=== PATIENT | female | born 1940 | race Caucasian/White ===

== ENCOUNTER 2016-06-23 15:06 | Inpatient (IN) | payer MEDICARE, OTHER ==
[~2016-06-23] VITALS: Ht 167.6 cm; Wt 81.6 kg
--- NOTE | 2016-06-23 15:15 | ERA ---
ER Documentation Chief Complaint Date/Time DATE: 06/23/16 TIME: 15:15 Chief Complaint Shortness of breath HPI The patient is a 76-year-old female, presenting to the ER because of acute shortness of breath that began last night that caused her chest tightness. She has similar symptoms previously, complains of intermittent cough. She denies fever, chills, neck pain, chest pain with exertion or vomiting or diaphoresis. She denies abdominal pain, vomiting, dysuria, diarrhea. She does not smoke nor drink Past medical history: Hypertension, atrial fibrillation Past surgical history: None ROS All systems reviewed and are negative except as per history of present illness. Medications Home Meds Reported Medications Nebivolol Hcl* (Bystolic*) 10 Mg Tablet, 10 MG PO DAILY, #30 TAB 06/23/16 Diltiazem Hcl* (Diltiazem XT) 240 Mg Capsule.er, 240 MG PO DAILY, #30 CAP 06/23/16 Losartan-Hydrochlorothiazide (Losartan-HCTZ) 100-25 Mg Tab, 1 TAB PO DAILY, TAB 06/23/16 Warfarin Sodium* (Coumadin*) 2.5 Mg Tablet, 2.5 MG PO DAILY, TAB 06/23/16 Potassium Chloride* (Potassium Chloride*) 8 Meq Capsule.er, 8 MEQ PO DAILY, CAP 06/23/16 Allergies Allergies: Coded Allergies: No Known Allergy (Unverified , 06/23/16) Physical Exam Vitals Vital Signs Date Time Temp Pulse Resp B/P Pulse Ox O2 Delivery O2 Flow Rate FiO2 06/23/16 15:38 98.2 119 24 141/82 97 06/23/16 15:10 Nasal Cannula 2 Physical Exam Const: No acute distress. Head: Atraumatic. Eyes: Normal Conjunctiva. ENT: Normal External Ears, Nose and Mouth. Neck: Full range of motion. No meningismus. Resp: Bibasilar crackles Cardio: Irregularly irregular tachycardic Abd: Soft, non distended, normal bowel sounds, non tender. Skin: No petechiae or rashes. Back: No midline or flank tenderness. Ext: No cyanosis, or edema. Neur: Awake and alert. No focal deficit Psych: Normal Mood and Affect. Result Diagram: 06/23/16 1523 06/23/16 1523 Results 24 hrs Laboratory Tests Test 06/23/16 15:23 06/23/16 16:32 White Blood Count 21.410^3/ul Red Blood Count 5.8010^6/ul Hemoglobin 16.7g/dl Hematocrit 51.5% Mean Corpuscular Volume 88.8fl Mean Corpuscular Hemoglobin 28.8pg Mean Corpuscular Hemoglobin Concent 32.4g/dl Red Cell Distribution Width 17.9% Platelet Count 08952^3/UL Mean Platelet Volume 11.8fl Neutrophils % 77.4% Lymphocytes % 8.1% Monocytes % 7.6% Eosinophils % 1.2% Basophils % 1.4% Nucleated Red Blood Cells % 0.0/100WBC Neutrophils # 16.610^3/ul Lymphocytes # 1.710^3/ul Monocytes # 1.610^3/ul Eosinophils # 0.310^3/ul Basophils # 0.310^3/ul Nucleated Red Blood Cells # 0.010^3/ul Prothrombin Time 22.9Sec Prothrombin Time Ratio 1.8 INR International Normalized Ratio 2.00 Activated Partial Thromboplast Time 38.9Sec Sodium Level 141mmol/L Potassium Level 3.6mmol/L Chloride Level 101mmol/L Carbon Dioxide Level 27mmol/L Anion Gap 17 Blood Urea Nitrogen 18mg/dl Creatinine 1.02mg/dl Glucose Level 158mg/dl Calcium Level 10.7mg/dl Total Bilirubin 2.3mg/dl Direct Bilirubin 0.00mg/dl Indirect Bilirubin 2.3mg/dl Aspartate Amino Transf (AST/SGOT) 25IU/L Alanine Aminotransferase (ALT/SGPT) 13IU/L Alkaline Phosphatase 88IU/L Troponin I < 0.012ng/ml B-Type Natriuretic Peptide 8500PG/ML Total Protein 8.1g/dl Albumin 4.1g/dl Globulin 4.00g/dl Albumin/Globulin Ratio 1.02 Lactic Acid Level 2.2mmol/L Current Medications Medications (Trade) Dose Ordered Sig/Amanda Route PRN Reason Start Time Stop Time Status Last Admin Dose Admin Furosemide 40 mg 40 mg ONCE ONCE IV 06/23/16 16:30 06/23/16 16:31 DC 06/23/16 17:00 Piperacillin Sod/ Tazobactam Sod (Zosyn 3.375gm/ 100 ml (Pmx)) 100 ml @ 200 mls/hr ONCE ONCE IVPB 06/23/16 18:00 06/23/16 18:29 Procedures/MDM [place] [address] Radiology Main Line: [phone] DIAGNOSTIC IMAGING REPORT Patient: FRED KRUEGER : 1940 Age: 76 Sex: F MR #: [id number] DOS: 06/23/16 1516 Ordering MD: LUCY LEON MD Location: E/R Room/Bed: PROCEDURE: XR Chest. CLINICAL INDICATION: Chest pain. TECHNIQUE: Portable AP semi erect view of the chest was obtained. COMPARISON: None available. FINDINGS: The cardiomediastinal silhouette is enlarged. Diffuse prominence of the pulmonary interstitium is most likely interstitial edema. Obscuring of the diaphragm is concerning for small bilateral pleural effusions. There is no evidence of pneumothorax. Demineralization is noted without evidence of acute osseous abnormality. Calcification is visible within the aortic arch. RPTAT:HJJR IMPRESSION: 1. Combination of findings concerning for congestive heart failure. 2. Aortic atherosclerosis is present. Physician Marylu Date Time Electronically viewed and signed by Physician Marylu on 06/23/2016 17:00 JR/ CC: LUCY LEON MD [place] [address] Radiology Main Line: [phone] DIAGNOSTIC IMAGING REPORT Patient: FRED KRUEGER : 1940 Age: 76 Sex: F MR #: [id number] DOS: 06/23/16 0000 Ordering MD: LUCY LEON MD Location: E/R Room/Bed: PROCEDURE: US right upper quadrant CLINICAL INDICATION: Abdominal pain TECHNIQUE: Multiple real-time images were acquired of the patient's right upper abdomen utilizing a high resolution transducer. COMPARISON: None available FINDINGS: Liver: Normal in size, contour and echogenicity. Rounded anechoic structures in the left hepatic lobe and increased through transmission and V2 criteria for a simple cysts the largest measuring 3.1 x 2.8 x 2.7 cm. There is no evidence of solid mass or ductal dilatation. Normal directional blood flow on the patent main portal vein is present. The maximum dimension of the liver estimated at 18.7 cm . Gallbladder: Multiple mobile echogenic foci with distal acoustic shadowing are present. . There is no evidence of gallbladder wall thickening or pericholecystic fluid. No sonographic Baptiste's sign is reported. Common bile duct: Normal; 3 mm. There is no evidence for choledocholithiasis. Right Kidney: Normal; maximum length measured at approximately 11.8 cm. Pancreas: Visualized portions are normal. The tail is partially obscured by bowel gas. RPTAT:HJJR IMPRESSION: 1. Cholelithiasis without evidence of cholecystitis. Normal caliber common bile duct. 2. Incidental left hepatic lobe cysts. Physician Marylu Date Time Electronically viewed and signed by Physician Marylu on 06/23/2016 17:04 JR/ CC: LUCY LEON MD EKG: Read by emergency physician at 3:12 PM Rate/Rhythm: Atrial fibrillation at 128 beats/min QRS, ST, T-waves: No ST elevation, RVR, RWA, IRBBB, inferior, anterior, lateral ST and T abnormality Impression: Abnormal EKG EKG: Read by emergency physician at 3:50 PM Rate/Rhythm: Atrial fibrillation at 123 beats/min QRS, ST, T-waves: No ST elevation, RVR, RWA, IRBBB, inferior, anterior, lateral ST and T abnormality Impression: Abnormal EKG MEDICAL MAKING DECISION: The patient is a 76-year-old female, presenting with acute CHF exacerbation, acute elevated lactic acid level at 2.2, concerning for severe sepsis, acute leukocytosis of unclear etiology. She was treated with Lasix 40 mg IV for acute CHF, IV antibiotic. IV fluid is not given because she is in congestive heart failure The differential diagnoses considered include but are not limited to asthma, COPD, pneumonia, pulmonary embolus, pleural effusion, congestive heart failure. Urinalysis is pending Admit MDM: Patient's infectious symptoms have not stabilized and the patient is at risk of rapid decompensation. The patient will be admitted for careful hydration, antibiotic therapy, and infectious source control. Severe Sepsis criteria: Infectious source: End organ damage indicated by: Lactate > 2.0 mmol/L Sepsis Management: Time of recognition of severe sepsis/septic shock: 17:30 hr Within 3 hours of recognition: Blood cultures x 2 before broad-spectrum antibiotics: Yes 30 ml/kg NS bolus alka completed b/c pt is in CHF Initial lactate 2.2 Repeat lactate pnd Critical Care: Critical care time 35 minutes Emergent fluid management while maintaining close respiratory support. Provision of immediate and broad-spectrum antibiotic therapy. Simultaneous assessment for possible sources in order to direct targeted therapy. Consideration for invasive and chemical support to prevent cardiopulmonary collapse. Septic Shock Assessment: Any lactic acid > 4.0 no Persistent hypotension (SBP < 90 or 40 mmHg drop, MAP < 65) despite 30 mL/kg IV fluid bolusno Departure Diagnosis: Primary Impression: CHF (congestive heart failure) Additional Impressions: Severe sepsis Leukocytosis Cholelithiasis Abnormal LFTs Condition: Stable Comments I discussed the findings with the patient. I discussed the patient with the on- call hospitalist Dr. Hammond who was made aware of the lab, the treatment, the patient condition. The patient is admitted to [facility] at 6pm LUCY LEON MD Jun 23, 2016 15:15
[2016-06-23 15:40] LABS: ADD SCAN DIFF NO
[2016-06-23 15:42] LABS: ABNORMAL IP MESSAGE 1; BASOPHIL # 0.3 10^3/ul (0.0-0.1); BASOPHILS % 1.4 % (0.0-2.0); EOSINOPHILS # 0.3 10^3/ul (0.0-0.5); EOSINOPHILS % 1.2 % (0.0-7.0); HEMATOCRIT 51.5 % (37.0-47.0); HEMOGLOBIN 16.7 g/dl (12.0-16.0); LYMPHOCYTES # 1.7 10^3/ul (0.8-2.9); LYMPHOCYTES % 8.1 % (15.0-51.0); MEAN CORPUSCULAR HEMOGLOBIN 28.8 pg (29.0-33.0); MEAN CORPUSCULAR HGB CONC 32.4 g/dl (32.0-37.0); MEAN CORPUSCULAR VOLUME 88.8 fl (82.0-101.0); MEAN PLATELET VOLUME 11.8 fl (7.4-10.4); MONOCYTE # 1.6 10^3/ul (0.3-0.9); MONOCYTES % 7.6 % (0.0-11.0); NEUTROPHIL # 16.6 10^3/ul (1.6-7.5); NEUTROPHILS % 77.4 % (39.0-77.0); PLATELET COUNT 645 10^3/UL (140-415); RED CELL DISTRIBUTION WIDTH 17.9 % (11.5-14.5); WHITE BLOOD COUNT 21.4 10^3/ul (4.8-10.8)
[2016-06-23 15:51] LABS: ALBUMIN 4.1 g/dl (3.3-4.9); CHLORIDE 101 mmol/L (97-110); PARTIAL THROMBOPLASTIN TIME 38.9 Sec (25.0-35.0); PROTIME 22.9 Sec (12.2-14.2); PT RATIO 1.8
[2016-06-23 15:52] LABS: POTASSIUM 3.6 mmol/L (3.5-5.1); SODIUM 141 mmol/L (135-144)
[2016-06-23 15:54] LABS: ALBUMIN/GLOBULIN RATIO 1.02; ANION GAP 17 (8-16); ASPARTATE AMINO TRANSFERASE 25 IU/L (15-46); BILIRUBIN,INDIRECT 2.3 mg/dl (0-1.1); BILIRUBIN,TOTAL 2.3 mg/dl (0.2-1.3); BLOOD UREA NITROGEN 18 mg/dl (7-20); CARBON DIOXIDE 27 mmol/L (21-31); CREATININE 1.02 mg/dl (0.44-1.00); TOTAL PROTEIN 8.1 g/dl (6.1-8.1)
[2016-06-23 15:55] LABS: ALANINE AMINOTRANSFERASE 13 IU/L (13-69); ALKALINE PHOSPHATASE 88 IU/L (42-121); CALCIUM 10.7 mg/dl (8.4-10.2); GLUCOSE 158 mg/dl (70-220)
[2016-06-23 16:02] LABS: B-TYPE NATRIURETIC PEPTIDE 8500 PG/ML (0-450)
[2016-06-23 16:09] LABS: TROPONIN-I < 0.012 ng/ml (0.00-0.12)
[2016-06-23] MEDS ORDERED: WARF2.5T PO (16:25)
[2016-06-23] MEDS ORDERED: POTA8CAP PO (16:25)
[2016-06-23] MEDS ORDERED: DILT240C98 PO (16:26)
[2016-06-23] MEDS ORDERED: LOSA1TAB20 PO (16:26)
[2016-06-23] MEDS ORDERED: FUROSEMIDE 40 MG INJ IV ONE (16:30)
[2016-06-23] MEDS ORDERED: NEBI10TA2 PO (16:33)
--- NOTE | 2016-06-23 17:00 | RADRPT ---
PROCEDURE: XR Chest. CLINICAL INDICATION: Chest pain. TECHNIQUE: Portable AP semi erect view of the chest was obtained. COMPARISON: None available. FINDINGS: The cardiomediastinal silhouette is enlarged. Diffuse prominence of the pulmonary interstitium is m ost likely interstitial edema. Obscuring of the diaphragm is concerning for small bilateral pleural effusions. There is no evidence of pneumothorax. Demineralization is noted without evidence of [facility] [place] osseous abnormality. Calcification is visible within the aortic arch. RPTAT:HJJR IMPRESSION: 1. Combination of findings concerning for congestive heart failure. 2. Aortic atherosclerosis is present. Physician Marylu Date Time Electronically viewed and signed by Physician Marylu on 06/23/2016 17:00 /
--- NOTE | 2016-06-23 17:04 | RADRPT ---
PROCEDURE: US right upper quadrant CLINICAL INDICATION: Abdominal pain TECHNIQUE: Multiple real-time images were acquired of the patient's right upper abdomen utilizing a high resolution transducer. COMPARISON: None available FINDINGS: Liver: Normal in size, contour and echogenicity. Rounded anechoic structures in the left hepatic lo be and increased through transmission and V2 criteria for a simple cysts the largest measuring 3.1 x 2.8 x 2.7 cm. There is no evidence of solid mass or ductal dilatation. Normal directional blood f low on the patent main portal vein is present. The maximum dimension of the liver estimated at 18.7 cm . Gallbladder: Multiple mobile echogenic foci with distal acoustic shadowing are present. . There is no evidence of gallbladder wall thickening or pericholecystic fluid. No sonographic Baptiste's sign i s reported. Common bile duct: Normal; 3 mm. There is no evidence for choledocholithiasis. Right Kidney: Normal; maximum length measured at approximately 11.8 cm. Pancreas: Visualized portions are normal. The tail is partially obscured by bowel gas. RPTAT:HJJR IMPRESSION: 1. Cholelithiasis without evidence of cholecystitis. Normal caliber common bile duct. 2. Incidental left hepatic lobe cysts. Physician Marylu Date Time Electronically viewed and signed by Physician Marylu on 06/23/2016 17:04 JR/
[2016-06-23] MEDS ORDERED: PIPER-TAZO 3.375 GM IV (PMX) 100 ML IVPB ONE (18:00)
[2016-06-23] MEDS ORDERED: hydrALAzine 20 MG INJ IV PRN (19:00)
[2016-06-23] MEDS ORDERED: NA PHOSPHATE/BIPHOS 133 ML ENEMA PR PRN (19:00)
[2016-06-23] MEDS ORDERED: NITROGLYCERIN (SL) 0.4 MG TAB SL PRN (19:00)
[2016-06-23] MEDS ORDERED: morphine 2 MG INJ IV PRN (19:00)
[2016-06-23] MEDS ORDERED: HYDROCODONE/APAP (5/325) TAB PO PRN (19:00)
[2016-06-23] MEDS ORDERED: ACETAMINOPHEN 325 MG TAB PO PRN (19:00)
[2016-06-23] MEDS ORDERED: ALBUTEROL/IPRATROPIUM (NEB) 3 ML AMP HHN PRN (19:00)
[2016-06-23] MEDS ORDERED: LORAZEPAM 2 MG INJ IV PRN (19:00)
[2016-06-23] MEDS ORDERED: MAGNESIUM HYDROXIDE 30ML CUP PO PRN (19:00)
[2016-06-23] MEDS ORDERED: ONDANSETRON 4 MG INJ IV PRN (19:00)
[2016-06-23] MEDS ORDERED: NACL 0.9% 3 ML SYG IV SCH (19:00)
[2016-06-23] MEDS ORDERED: DOCUSATE SODIUM 100 MG CAP PO PRN (19:00)
[2016-06-23 19:16] LABS: URINE BLOOD (Dip) POC Negative (NEGATIVE)
[2016-06-23] MEDS ORDERED: CEPASTAT LOZENGE MT PRN (19:30)
[2016-06-23 19:40] LABS: ADD UMIC YES; URINE BILIRUBIN (Dip) NEGATIVE (NEGATIVE); URINE BLOOD (Dip) NEGATIVE (NEGATIVE); URINE COLOR LT. YELLOW (YELLOW); URINE GLUCOSE (Dip) NEGATIVE (NEGATIVE); URINE KETONES (Dip) NEGATIVE (NEGATIVE); URINE LEUKOCYTE ESTERASE (Dip) 1+ (NEGATIVE); URINE NITRITE (Dip) NEGATIVE (NEGATIVE); URINE TOTAL PROTEIN (Dip) NEGATIVE (NEGATIVE); URINE UROBILINOGEN (Dip) 0.2 E.U./dL (0.1-1.0)
[2016-06-23 19:53] LABS: BACTERIA,URINE FEW; URINE RBCS 0-2 /HPF (0)
--- NOTE | 2016-06-23 20:08 | HP ---
DATE OF ADMISSION: 06/23/2016 CHIEF COMPLAINT: Shortness of breath and mild abdominal pain and dry cough. HISTORY OF PRESENT ILLNESS: A 76-year-old female, past medical history of essential hypertension an d atrial fibrillation, on Coumadin at home, who presents with shortness of breath that began about 2 4 hours ago. She complained of some mild chest tightness as well but no palpitations, no dizziness or loss of consciousness. She had some mild abdominal pain as well but no nausea, vomiting or fever s or chills or diarrhea or constipation. She has also been complaining of cough that has been dry, so nonproductive. Denies any prior history of this. She says she takes Coumadin for AFib and sees a Dr. 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 When she came into the ER today, she was found with elevated white blood cell count 21,000, and her BNP was elevated at 8500, and her chest x-ray showed signs of CHF, and she was given a dose of Lasix as well. PAST MEDICAL HISTORY: Stated above. ALLERGIES: NO KNOWN DRUG ALLERGIES. HOME MEDICINES: 1. Coumadin 2.5 mg daily. 2. Diltiazem 240 mg daily. 3. Losartan/hydrochlorothiazide 100/25 one tablet daily. 4. Bystolic 10 mg daily. 5. Potassium chloride 8 mEq daily. PAST SURGICAL HISTORY: None. SOCIAL HISTORY: Negative for smoking, drinking, IV drug abuse. FAMILY HISTORY: Noncontributory today. PHYSICAL EXAMINATION: VITAL SIGNS: T-max 98.2, pulse 119, respirations 24, blood pressure 141/82, saturating at 97% on 2 L nasal cannula. GENERAL: The patient lying in bed, alert. No acute distress. Pleasant. HEENT: Pupils equal, round, react to light. Extraocular muscles intact. NECK: Supple. No thyromegaly. LUNGS: Crackles heard at the bases bilaterally. No wheezes. CARDIOVASCULAR: Irregularly irregular heart rate, slightly tachycardic. No rubs or gallops. ABDOMEN: Soft, nontender, nondistended. Normal bowel sounds. No rebound or guarding. MUSCULOSKELETAL: No lower extremity edema bilaterally. NEUROLOGIC: No focal deficits. LABORATORIES: WBC 21.4, hemoglobin 16.7, hematocrit 51.5, platelets 645. The basic metabolic panel is normal. The calcium is 10.7. Total bilirubin is 2.3, direct is 0.0, indirect is 2.3. The rest of the LFTs is normal. Troponin is negative x1. BNP is 8500. Coagulation studies show an INR of 2.0. IMAGING: Chest x-ray again shows findings concerning for CHF, and there was a gallbladder ultrasoun d that showed cholelithiasis but no evidence of cholecystitis, normal-caliber common bile duct, inci dental left hepatic lobe cyst. ASSESSMENT AND PLAN: A 76-year-old female presenting with shortness of breath, signs of congestive heart failure exacerbation as well as leukocytosis and elevated indirect bilirubins. 1. Shortness of breath, again secondary to congestive heart failure. Will admit her; monitor ins a nd outs and daily weights. Hold her home blood pressure medicines for now, put her on Lasix IV. [employer] t PT, OT consults as well. Put her on Lasix, morphine, oxygen and nitrates p.r.n. as well. Monitor ins and outs and daily weights. Check 2D echocardiogram as well. 2. History of atrial fibrillation. Continue to monitor INR and heart rate for now. INR is present ly 2.0. Continue Coumadin. Monitor on telemetry floor. 3. Abdominal pain. Again, she had slightly elevated LFTs including indirect bilirubin, but her abd ominal ultrasound only showed positive gallstones but no cholecystitis. Continue to monitor liver p rofile. Monitor for signs of any abdominal pain or nausea, vomiting. 4. Essential hypertension. Again, will continue Lasix for now, holding all blood pressure medicine s for now until her CHF exacerbation resolved. 5. Gastrointestinal prophylaxis. Pepcid. 6. Deep venous thrombosis prophylaxis. Heparin subcutaneously. Dictated By: JABIER GOSS Conf#: [id number] DID#: [id number]
[2016-06-23] MEDS: FAMOTIDINE 20 MG INJ IV SCH (22:05)
[2016-06-23] MEDS: HEPARIN 5,000 UNIT/0.5 ML SYG SC SCH (22:15)
[2016-06-23 22:35] LABS: CREATINE KINASE 45 IU/L (23-200)
[2016-06-23 22:48] LABS: TROPONIN-I 0.025 ng/ml (0.00-0.12)
[2016-06-23 22:49] LABS: CK-MB < 0.22 ng/ml (0.0-2.4)
[2016-06-24] VITALS (14 sets, daily range): BP systolic 112–142; BP diastolic 60–71; PULSE 87–155; RESP 17–18; TEMP 98.6; Ht 167.6 cm; Wt 81.6 kg
[2016-06-24] MEDS: PIPER-TAZO 3.375 GM IV (PMX) 100 ML IVPB SCH ×4 (02:04→18:30)
[2016-06-24 03:33] LABS: ADD SCAN DIFF NO
[2016-06-24 03:52] LABS: INR 2.25; PROTIME 25.1 Sec (12.2-14.2)
[2016-06-24 03:55] LABS: ALBUMIN 3.8 g/dl (3.3-4.9)
[2016-06-24 03:57] LABS: BILIRUBIN,INDIRECT 2.5 mg/dl (0-1.1); BILIRUBIN,TOTAL 2.5 mg/dl (0.2-1.3); POTASSIUM 3.1 mmol/L (3.5-5.1)
[2016-06-24 03:58] LABS: TOTAL PROTEIN 7.2 g/dl (6.1-8.1)
[2016-06-24 03:59] LABS: CHOL/HDL RATIO 3.6 RATIO; CREATININE 0.95 mg/dl (0.44-1.00)
[2016-06-24 04:00] LABS: CALCIUM 9.9 mg/dl (8.4-10.2); MAGNESIUM 1.5 mg/dl (1.7-2.5); PHOSPHORUS 3.1 mg/dl (2.5-4.9)
[2016-06-24 04:12] LABS: CK-MB 0.23 ng/ml (0.0-2.4)
[2016-06-24 04:13] LABS: ABNORMAL IP MESSAGE 1; BASOPHIL # 0.2 10^3/ul (0.0-0.1); BASOPHILS % 0.8 % (0.0-2.0); EOSINOPHILS # 0.1 10^3/ul (0.0-0.5); EOSINOPHILS % 0.6 % (0.0-7.0); HEMATOCRIT 49.2 % (37.0-47.0); HEMOGLOBIN 15.4 g/dl (12.0-16.0); LYMPHOCYTES % 8.1 % (15.0-51.0); MEAN CORPUSCULAR HEMOGLOBIN 27.8 pg (29.0-33.0); MEAN CORPUSCULAR HGB CONC 31.3 g/dl (32.0-37.0); MEAN CORPUSCULAR VOLUME 88.8 fl (82.0-101.0); MEAN PLATELET VOLUME 11.9 fl (7.4-10.4); NEUTROPHIL # 19.4 10^3/ul (1.6-7.5); NEUTROPHILS % 78.5 % (39.0-77.0); PLATELET COUNT 590 10^3/UL (140-415); RED BLOOD COUNT 5.54 10^6/ul (4.20-5.40); RED CELL DISTRIBUTION WIDTH 18.5 % (11.5-14.5); WHITE BLOOD COUNT 24.7 10^3/ul (4.8-10.8)
[2016-06-24 04:30] LABS: THYROID STIMULATING HORMONE 8.95 MIU/L (0.465-4.680)
[2016-06-24] MEDS ORDERED: DILTIAZEM-D5W 125MG/125ML DRIP 125 ML IV SCH (06:30)
[2016-06-24 08:02] LABS: TROPONIN-I 0.037 ng/ml (0.00-0.12)
[2016-06-24] MEDS: POTASSIUM CHLORIDE (SR) 8 MEQ CAP PO SCH (09:20)
[2016-06-24] MEDS: FAMOTIDINE 20 MG INJ IV SCH (09:20)
[2016-06-24] MEDS: FUROSEMIDE 40 MG INJ IV SCH (09:20)
[2016-06-24] MEDS: HEPARIN 5,000 UNIT/0.5 ML SYG SC SCH (09:22)
--- NOTE | 2016-06-24 10:10 | RADRPT ---
Echocardiogram Report Patient Name: FRED KRUEGER Gender: Female Date: 1940 Study Date: 24-Jun-2016 [employer]: [employer] ALEXIA Location: [id number] Ref. Physician: JABIER MOREAU Quality: Technically Difficult Study Procedures: Transthoracic echocardiogram with complete 2D, M-Mode, and doppler examination. Indications: Congestive Heart Failure. 2D/M Mode Doppler Measurement Value Normal Ranges Measurement Value Normal Ranges LVIDd 2D 3.0 3.5 - 5.6 cm RYLEE Vmax 0.9 cm2 LVIDs 2D 2.1 2.1 - 4.1 cm RYLEE VTI 0.9 cm2 LVPWd 2D 1.2 0.6 - 1.1 cm AV Mean Kit 2.3 m/sec IVSd 2D 1.2 0.6 - 1.1 cm AV Mean PG 23.8 mmHg AoR Diam 2D 2.4 2.0 - 3.7 cm AV Peak Kit 3.2 m/sec EDV 2D 34.5 cm3 AV Peak PG 40.8 mmHg ESV 2D 9.6 cm3 AV VTI 48.7 cm LA Dimen 2D 5.0 2.3 - 4.0 cm LVOT Mean Kit 0.6 m/sec LVOT Diam 2.0 cm LVOT Mean PG 1.8 mmHg LVOT Peak Kit 0.9 m/sec LVOT Peak PG 3.5 mmHg LVOT VTI 12.4 cm MV PHT 204.0 msec MV Peak Kit 2.2 m/sec MV Peak PG 18.9 mmHg MV Mean Kit 1.6 m/sec MV Mean PG 11.5 mmHg MV PHT 204.0 msec MV VTI 51.7 cm MVA PHT 1.1 cm2 MVA VTI 0.8 cm TR Peak Kit 3.2 m/sec TR Peak PG 39.8 mmHg RVSP 55.0 mmHg Findings Left Ventricle: Normal left ventricular systolic function. Normal left ventricular cavity size. Mild concentric left ventricular hypertrophy. Ejection fraction is visually estimated at 60 %. Right Ventricle: Normal right ventricular size. Left Atrium: There is severe enlargement of left atrium. Right Atrium: There is severe enlargement of right atrium. Mitral Valve: Mitral valve leaflets appear moderately thickened. Mild mitral annular calcification. Mild to moderate mitral valve regurgitation. The regurgitation jet is eccentrically directed which may underestimate the severity of mitral regurgitation. Moderate to severe mitral stenosis. Mitral valve Max Velocity 2.18 m/sec. MaxPG 18.90 mmHg. MeanPG 11.50 mmHg. Mitral Valve Area by PHT1.10 cm2. Mitral Valve Area by Continuity0.80 cm2. 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 Aortic Valve: Moderate to severe aortic stenosis. Aortic valve Max velocity 3.19 m/sec. Max PG 40.80 mmHg. Mean PG 23.80 mmHg. Aortic valve area 0.80 cm2. Aortic cusps appear moderately calcified. Mild to moderate aortic valve regurgitation. Tricuspid Valve: Estimated peak PA systolic pressure 55 mmHg. There is moderate to severe tricuspid regurgitation. Pulmonic Valve: Normal pulmonic valve appearance. Pericardium: Normal pericardium with no significant pericardial effusion. Aorta: Normal aortic root. IVC: Dilated IVC without respiratory collapse consistent with elevated right atrial pressure. Conclusions 1.Normal left ventricular systolic function. Normal left ventricular cavity size. Mild concentric left ventricular hypertrophy. Ejection fraction is visually estimated at 60 %. 2.There is severe enlargement of left atrium. 3.There is severe enlargement of right atrium. 4.Mitral valve leaflets appear moderately thickened. Mild mitral annular calcification. Mild to moderate mitral valve regurgitation. The regurgitation jet is eccentrically directed which may underestimate the severity of mitral regurgitation. Moderate to severe mitral stenosis. Mitral valve Max Velocity 2.18 m/sec. MaxPG 18.90 mmHg. MeanPG 11.50 mmHg. Mitral Valve Area by PHT1.10 cm2. Mitral Valve Area by Continuity0.80 cm2. 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 5.Moderate to severe aortic stenosis. Aortic valve Max velocity 3.19 m/sec. Max PG 40.80 mmHg. Mean PG 23.80 mmHg. Aortic valve area 0.80 cm2. Aortic cusps appear moderately calcified. Mild to moderate aortic valve regurgitation. 6.Estimated peak PA systolic pressure 55 mmHg. There is moderate to severe tricuspid regurgitation. 7.Dilated IVC without respiratory collapse consistent with elevated right atrial pressure. Electronically Signed By: Alpesh De Leon 24-Jun-2016 10:09:38 -2600 Patient Name: FRED KRUEGER Study Date: 24-Jun-2016 [id number]
[2016-06-24] MEDS ORDERED: MAGNESIUM SULFATE 2 GM/50 ML 50 ML IVPB ONE (12:00)
--- NOTE | 2016-06-24 12:13 | PN ---
Date/Time of Note Date/Time of Note DATE: 06/24/16 TIME: 12:08 Assessment/Plan VTE Prophylaxis VTE Prophylaxis Intervention: other (Coumadin) Lines/Catheters IV Catheter Type (from Nrs): Peripheral IV Assessment/Plan Chief Complaint/Hosp Course ASSESSMENT AND PLAN: A 76-year-old female presenting with shortness of breath, signs of congestive heart failure exacerbation as well as leukocytosis and elevated indirect bilirubins. 1. Shortness of breath - slightly improved - again secondary to congestive heart failure. - continue IV lasix, monitor ins and outs and daily weights. - f/u PT, OT consult rec's. - morphine, oxygen and nitrates p.r.n. as well. - given ECHO results (, MR, EF = 60%) - will get CV consult as well. 2. History of atrial fibrillation - rate controlled. INR is presently 2.25. - Continue to monitor INR and heart rate for now. - Continue Coumadin. - Monitor on telemetry floor. 3. Abdominal pain. Again, she had slightly elevated LFTs including indirect bilirubin, but her abdominal ultrasound only showed positive gallstones but no cholecystitis. - Continue to monitor liver profile. - Monitor for signs of any abdominal pain or nausea, vomiting -asymptomatic presently 4. Essential hypertension. Again, will continue Lasix for now, holding all blood pressure medicines for now until her CHF exacerbation resolved. 5. Gastrointestinal prophylaxis. Pepcid. 6. Deep venous thrombosis prophylaxis - on Coumadin Problems: Subjective 24 Hr Interval Summary Free Text/Dictation Pt with slightly less SOB, but still complains of dry cough. Seen by PT team as well. Exam/Review of Systems Vital Signs Vitals Vital Signs Date Time Temp Pulse Resp B/P Pulse Ox O2 Delivery O2 Flow Rate FiO2 06/24/16 10:51 98.2 78 18 124/60 92 06/24/16 07:30 2.0 06/24/16 00:33 Nasal Cannula Intake and Output 06/23/16 06/23/16 06/24/16 15:00 23:00 07:00 Intake Total 450 ml Output Total 300 ml Balance 150 ml Exam GENERAL: The patient lying in bed, alert. No acute distress. Pleasant. HEENT: Pupils equal, round, react to light. Extraocular muscles intact. NECK: Supple. No thyromegaly. LUNGS: less crackles heard at the bases bilaterally. No wheezes. CARDIOVASCULAR: Irregularly irregular heart rate, No rubs or gallops. ABDOMEN: Soft, nontender, nondistended. Normal bowel sounds. No rebound or guarding. MUSCULOSKELETAL: No lower extremity edema bilaterally. NEUROLOGIC: No focal deficits. Results Result Diagram: 06/24/16 03106/24/16 0310 Results 24 hrs Laboratory Tests Test 06/23/16 15:23 06/23/16 16:32 06/23/16 19:00 06/23/16 19:15 White Blood Count 21.4 H Red Blood Count 5.80 H Hemoglobin 16.7 H Hematocrit 51.5 H Mean Corpuscular Volume 88.8 Mean Corpuscular Hemoglobin 28.8 L Mean Corpuscular Hemoglobin Concent 32.4 Red Cell Distribution Width 17.9 H Platelet Count 645 H Mean Platelet Volume 11.8 H Neutrophils % 77.4 H Lymphocytes % 8.1 L Monocytes % 7.6 Eosinophils % 1.2 Basophils % 1.4 Nucleated Red Blood Cells % 0.0 Neutrophils # 16.6 H Lymphocytes # 1.7 Monocytes # 1.6 H Eosinophils # 0.3 Basophils # 0.3 H Nucleated Red Blood Cells # 0.0 Prothrombin Time 22.9 H Prothrombin Time Ratio 1.8 INR International Normalized Ratio 2.00 Activated Partial Thromboplast Time 38.9 H Sodium Level 141 Potassium Level 3.6 Chloride Level 101 Carbon Dioxide Level 27 Anion Gap 17 H Blood Urea Nitrogen 18 Creatinine 1.02 H Glucose Level 158 Calcium Level 10.7 H Total Bilirubin 2.3 H Direct Bilirubin 0.00 Indirect Bilirubin 2.3 H Aspartate Amino Transf (AST/SGOT) 25 Alanine Aminotransferase (ALT/SGPT) 13 Alkaline Phosphatase 88 Troponin I < 0.012 B-Type Natriuretic Peptide 8500 H Total Protein 8.1 Albumin 4.1 Globulin 4.00 H Albumin/Globulin Ratio 1.02 Lactic Acid Level 2.2 2.1 Free Thyroxine 1.52 Urine Color LT. YELLOW Urine Clarity CLEAR Urine pH 5.5 Bedside Urine pH (LAB) 5.0 Urine Specific [place] 1.010 Bedside Urine Protein (LAB) Negative Bedside Urine Glucose (UA) Negative Urine Ketones NEGATIVE Bedside Urine Ketones (LAB) Negative Bedside Urine Blood Negative Urine Nitrite NEGATIVE Bedside Urine Nitrite (LAB) Negative Urine Bilirubin NEGATIVE Urine Urobilinogen 0.2 E.U./dL Urine Leukocyte Esterase 1+ H Bedside Urine Leukocyte Esterase (L 1+ H Urine Microscopic RBC 0-2 Urine Microscopic WBC 5-10 Urine Epithelial Cells FEW Urine Bacteria FEW Urine Hemoglobin NEGATIVE Urine Glucose NEGATIVE Urine Total Protein NEGATIVE Test 06/23/16 21:12 06/24/16 03:10 Lactic Acid Level 2.4 H Creatine Kinase 45 26 Creatine Kinase Index 0.5 0.9 Creatinine Kinase MB (Mass) < 0.22 0.23 Troponin I 0.025 0.037 White Blood Count 24.7 H Red Blood Count 5.54 H Hemoglobin 15.4 Hematocrit 49.2 H Mean Corpuscular Volume 88.8 Mean Corpuscular Hemoglobin 27.8 L Mean Corpuscular Hemoglobin Concent 31.3 L Red Cell Distribution Width 18.5 H Platelet Count 590 H Mean Platelet Volume 11.9 H Neutrophils % 78.5 H Lymphocytes % 8.1 L Monocytes % 8.0 Eosinophils % 0.6 Basophils % 0.8 Nucleated Red Blood Cells % 0.0 Neutrophils # 19.4 H Lymphocytes # 2.0 Monocytes # 2.0 H Eosinophils # 0.1 Basophils # 0.2 H Nucleated Red Blood Cells # 0.0 Prothrombin Time 25.1 H Prothrombin Time Ratio 2.0 INR International Normalized Ratio 2.25 Sodium Level 137 Potassium Level 3.1 L Chloride Level 101 Carbon Dioxide Level 24 Anion Gap 15 Blood Urea Nitrogen 19 Creatinine 0.95 Glucose Level 181 Calcium Level 9.9 Phosphorus Level 3.1 Magnesium Level 1.5 L Total Bilirubin 2.5 H Direct Bilirubin 0.00 Indirect Bilirubin 2.5 H Aspartate Amino Transf (AST/SGOT) 27 Alanine Aminotransferase (ALT/SGPT) 21 Alkaline Phosphatase 90 Total Protein 7.2 Albumin 3.8 Triglycerides Level 100 Cholesterol Level 88 L LDL Cholesterol, Calculated 44 HDL Cholesterol 24 L Cholesterol/HDL Ratio 3.6 Thyroid Stimulating Hormone (TSH) 8.950 H Medications Medications Current Medications Ondansetron HCl (Zofran Inj) 4 mg Q6H PRN IV NAUSEA AND/OR VOMITING; Start at 19:00 Acetaminophen (Tylenol Tab) 650 mg Q6H PRN PO PAIN LEVEL 1-3 OR FEVER; Start at 19:00 Acetaminophen/ Hydrocodone Bitart ([place] (5/325)) 1 tab Q6H PRN PO MODERATE PAIN LEVEL 4-6; Start 06/23/16 at 19:00 Morphine Sulfate (morphine) 2 mg Q4H PRN IV SEVERE PAIN LEVEL 7-10; Start 06/23 at 19:00 Docusate Sodium (Colace) 100 mg Q12H PRN PO CONSTIPATION; Start 06/23/16 at 19: 00 Magnesium Hydroxide (Milk Of Mag) 30 ml DAILY PRN PO CONSTIPATION; Start at 19:00 Sodium Biphosphate/ Sodium Phosphate (Fleet Enema) 133 ml DAILY PRN [place] CONSTIPATION; Start 06/23/16 at 19:00 Famotidine (Pepcid Iv) 20 mg DAILY IV Last administered on 06/24/16 09:20; Admin Dose 20 MG; Start 06/23/16 at 21:00 Heparin Sodium (Porcine) (Heparin (5000 Units/0.5 ml)) 5,000 unit Q12 SC Last administered on 06/24/16 09:22; Admin Dose 5,000 UNIT; Start 06/23/16 at 21:00 Lorazepam 0.5 mg 0.5 mg Q6H PRN IV ANXIETY; Start 06/23/16 at 19:00 Piperacillin Sod/ Tazobactam Sod (Zosyn 3.375gm/ 100 ml (Pmx)) 100 ml @ 200 mls /hr Q6 IVPB Last administered on 06/24/16 06:14; Admin Dose 200 MLS/HR; Start 06/24/16 at 00:00 Hydralazine HCl (Apresoline) 10 mg Q6H PRN IV ELEVATED BLOOD PRESSURE; Start at 19:00 Nitroglycerin (Nitroglycerin (Sl Tab) 0.4 Mg) 1 tab Q5M PRN SL ANGINA; Start at 19:00 Potassium Chloride (Micro-K) 8 meq DAILY PO Last administered on 06/24/16 09: 20; Admin Dose 8 MEQ; Start 06/24/16 at 09:00 Warfarin Sodium (Coumadin) 2.5 mg DAILY@17 PO ; Start 06/24/16 at 17:00 Furosemide (Lasix) 40 mg DAILY IV Last administered on 06/24/16 09:20; Admin Dose 40 MG; Start 06/24/16 at 09:00 Phenol 1 lozenge 1 lozenge Q1H PRN MT COUGH; Start 06/23/16 at 19:30 Diltiazem HCl 125 ml @ 10 mls/hr TITRATE IV Last administered on 06/24/16t 07: 07; Admin Dose 10 MLS/HR; Start 06/24/16 at 06:30 Magnesium Sulfate (Magnesium Sulfate 2 Gm/50 ml) 50 ml @ 25 mls/hr ONCE ONCE IVPB ; Start 06/24/16 at 12:00; Stop 06/24/16 at 13:59; Status UNV Potassium Chloride (Klor-Con 20) 40 meq DAILY PO ; Start 06/24/16 at 12:00; Status UNV Procedures Procedures 2D ECHO (06/23/16): Conclusions: Normal left ventricular systolic function. Normal left ventricular cavity size. Mild concentric left ventricular hypertrophy. Ejection fraction is visually estimated at 60 %. 2. There is severe enlargement of left atrium. 3. There is severe enlargement of right atrium. 4. Mitral valve leaflets appear moderately thickened. Mild mitral annular calcification. Mild to moderate mitral valve regurgitation. The regurgitation jet is eccentrically directed which may underestimate the severity of mitral regurgitation. Moderate to severe mitral stenosis. Mitral valve Max Velocity 2.18 m/sec. MaxPG 18.90 mmHg. MeanPG 11.50 mmHg. Mitral Valve Area by PHT1.10 cm2. Mitral Valve Area by Continuity0.80 cm2. 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 5. Moderate to severe aortic stenosis. JABIER MOREAU Jun 24, 2016 12:13
[2016-06-24] MEDS ORDERED: GUAIFENESIN 20 MG/ML 5ML CUP PO PRN (12:30)
[2016-06-24] MEDS: POTASSIUM CHLORIDE (SR) 20 MEQ TAB PO SCH (14:52)
--- NOTE | 2016-06-24 18:17 | CONS ---
Date/Time of Note Date/Time of Note DATE: 06/24/16 TIME: 18:05 Assessment/Plan Assessment/Plan Chief Complaint/Hosp Course Assessment: Acute on chronic diastolic heart failure Chronic atrial fibrillation - rapid ventricular response on presentation, rates now controlled Rheumatic heart disease Moderate to severe aortic stenosis Moderate to severe mitral stenosis, moderate mitral regurgitation Hypertension Sepsis - work up and antibiotics per primary team Recommendations: -echocardiogram results reviewed -continue Lasix 40mg IV daily -discontinue diltiazem drip, start diltiazem 240mg PO daily -add metoprolol 50mg PO BID -continue warfarin, goal INR 2-3 (novel anticoagulants not an option with valvular atrial fibrillation -as outpatient, will need to continue work up for valve replacement with her wet process miller Problems: Consultation Date/Type/Reason Admit Date/Time Jun 23, 2016 at 18:01 Type of Consultation: Cardiology Reason for Consultation congestive heart failure Hx of Present Illness The patient is a 76 year-old female who presented with shortness of breath, chest tightness, and nonproductive cough for the past week. Her white blood cell count is elevated at 21 and lactic acid is elevated at 2.4, suspicious for sepsis. She was in atrial fibrillation with rapid ventricular response on presentation. She is also found to have an elevated BNP of 8500 and pulmonary edema on chest x-ray, consistent with decompensated heart failure. She has known rheumatic heart disease and chronic atrial fibrillation, and sees her outpatient wet process miller Dr. Charanjit Castillo in [place]. They are planning on valve replacement procedures later this year. 14 point review of systems negative other than per HPI. Past Medical History Rheumatic heart disease Chronic atrial fibrillation Hypertension Past Surgical History None Family History Significant Family History: no pertinent family hx Social History Alcohol Use: none Smoking Status: Former smoker (remote history of light smoking) Drug Use: none Exam/Review of Systems Vital Signs Vitals Vital Signs Date Time Temp Pulse Resp B/P Pulse Ox O2 Delivery O2 Flow Rate FiO2 06/24/16 16:01 87 06/24/16 15:00 97.7 18 130/68 93 06/24/16 07:30 2.0 06/24/16 00:33 Nasal Cannula Intake and Output 06/23/16 06/23/16 06/24/16 15:00 23:00 07:00 Intake Total 450 ml Output Total 300 ml Balance 150 ml Exam Constitutional: alert, well developed Psych: nl mood/affect, no complaints Head: atraumatic, normocephalic Eyes: nl conjunctiva, nl lids ENMT: nl external ears & nose, nl nasal mucosa & septum Neck: non-tender, supple Respiratory: diminished breath sounds, No wheezing Cardiovascular: irregular rhythm, murmurs/extra sounds, No regular rate and rhythm Gastrointestinal: non-tender, soft Musculoskeletal: nl extremities to inspection Extremities: No clubbing, No cyanosis, No edema Neurological: nl mental status, nl speech Skin: nl turgor Results Result Diagram: 06/24/16 03106/24/16 0310 Results 24 hrs Laboratory Tests Test 06/23/16 19:00 06/23/16 19:15 06/23/16 21:12 06/24/16 03:10 Lactic Acid Level 2.1 2.4 H Free Thyroxine 1.52 Urine Color LT. YELLOW Urine Clarity CLEAR Urine pH 5.5 Bedside Urine pH (LAB) 5.0 Urine Specific [place] 1.010 Bedside Urine Protein (LAB) Negative Bedside Urine Glucose (UA) Negative Urine Ketones NEGATIVE Bedside Urine Ketones (LAB) Negative Bedside Urine Blood Negative Urine Nitrite NEGATIVE Bedside Urine Nitrite (LAB) Negative Urine Bilirubin NEGATIVE Urine Urobilinogen 0.2 E.U./dL Urine Leukocyte Esterase 1+ H Bedside Urine Leukocyte Esterase (L 1+ H Urine Microscopic RBC 0-2 Urine Microscopic WBC 5-10 Urine Epithelial Cells FEW Urine Bacteria FEW Urine Hemoglobin NEGATIVE Urine Glucose NEGATIVE Urine Total Protein NEGATIVE Creatine Kinase 45 26 Creatine Kinase Index 0.5 0.9 Creatinine Kinase MB (Mass) < 0.22 0.23 Troponin I 0.025 0.037 White Blood Count 24.7 H Red Blood Count 5.54 H Hemoglobin 15.4 Hematocrit 49.2 H Mean Corpuscular Volume 88.8 Mean Corpuscular Hemoglobin 27.8 L Mean Corpuscular Hemoglobin Concent 31.3 L Red Cell Distribution Width 18.5 H Platelet Count 590 H Mean Platelet Volume 11.9 H Neutrophils % 78.5 H Lymphocytes % 8.1 L Monocytes % 8.0 Eosinophils % 0.6 Basophils % 0.8 Nucleated Red Blood Cells % 0.0 Neutrophils # 19.4 H Lymphocytes # 2.0 Monocytes # 2.0 H Eosinophils # 0.1 Basophils # 0.2 H Nucleated Red Blood Cells # 0.0 Prothrombin Time 25.1 H Prothrombin Time Ratio 2.0 INR International Normalized Ratio 2.25 Sodium Level 137 Potassium Level 3.1 L Chloride Level 101 Carbon Dioxide Level 24 Anion Gap 15 Blood Urea Nitrogen 19 Creatinine 0.95 Glucose Level 181 Hemoglobin A1c 6.1 H Calcium Level 9.9 Phosphorus Level 3.1 Magnesium Level 1.5 L Total Bilirubin 2.5 H Direct Bilirubin 0.00 Indirect Bilirubin 2.5 H Aspartate Amino Transf (AST/SGOT) 27 Alanine Aminotransferase (ALT/SGPT) 21 Alkaline Phosphatase 90 Total Protein 7.2 Albumin 3.8 Triglycerides Level 100 Cholesterol Level 88 L LDL Cholesterol, Calculated 44 HDL Cholesterol 24 L Cholesterol/HDL Ratio 3.6 Thyroid Stimulating Hormone (TSH) 8.950 H Medications Medications Current Medications Ondansetron HCl (Zofran Inj) 4 mg Q6H PRN IV NAUSEA AND/OR VOMITING; Start at 19:00 Acetaminophen (Tylenol Tab) 650 mg Q6H PRN PO PAIN LEVEL 1-3 OR FEVER; Start at 19:00 Acetaminophen/ Hydrocodone Bitart ([place] (5/325)) 1 tab Q6H PRN PO MODERATE PAIN LEVEL 4-6; Start 06/23/16 at 19:00 Morphine Sulfate (morphine) 2 mg Q4H PRN IV SEVERE PAIN LEVEL 7-10; Start 06/23 at 19:00 Docusate Sodium (Colace) 100 mg Q12H PRN PO CONSTIPATION; Start 06/23/16 at 19: 00 Magnesium Hydroxide (Milk Of Mag) 30 ml DAILY PRN PO CONSTIPATION; Start at 19:00 Sodium Biphosphate/ Sodium Phosphate (Fleet Enema) 133 ml DAILY PRN [place] CONSTIPATION; Start 06/23/16 at 19:00 Famotidine (Pepcid Iv) 20 mg DAILY IV Last administered on 06/24/16 09:20; Admin Dose 20 MG; Start 06/23/16 at 21:00 Lorazepam 0.5 mg 0.5 mg Q6H PRN IV ANXIETY; Start 06/23/16 at 19:00 Piperacillin Sod/ Tazobactam Sod (Zosyn 3.375gm/ 100 ml (Pmx)) 100 ml @ 200 mls /hr Q6 IVPB Last administered on 06/24/16 13:04; Admin Dose 200 MLS/HR; Start 06/24/16 at 00:00 Hydralazine HCl (Apresoline) 10 mg Q6H PRN IV ELEVATED BLOOD PRESSURE; Start at 19:00 Nitroglycerin (Nitroglycerin (Sl Tab) 0.4 Mg) 1 tab Q5M PRN SL ANGINA; Start at 19:00 Potassium Chloride (Micro-K) 8 meq DAILY PO Last administered on 06/24/16 09: 20; Admin Dose 8 MEQ; Start 06/24/16 at 09:00 Warfarin Sodium (Coumadin) 2.5 mg DAILY@17 PO ; Start 06/24/16 at 17:00 Furosemide (Lasix) 40 mg DAILY IV Last administered on 06/24/16 09:20; Admin Dose 40 MG; Start 06/24/16 at 09:00 Phenol 1 lozenge 1 lozenge Q1H PRN [place] COUGH; Start 06/23/16 at 19:30 Diltiazem HCl (Cardizem-D5W 125 Mg/125 ml Drip) 125 ml @ 10 mls/hr TITRATE IV Last administered on 06/24/16 07:07; Admin Dose 10 MLS/HR; Start 06/24/16 at 06 :30 Potassium Chloride (Klor-Con 20) 40 meq DAILY PO Last administered on 14:52; Admin Dose 40 MEQ; Start 06/24/16 at 12:00 Guaifenesin (Robitussin Liquid Cup) 200 mg Q4H PRN PO COUGH; Start 06/24/16 at 12:30 CANDELARIO KULKARNI MD Jun 24, 2016 18:16
[2016-06-24] MEDS: WARFARIN 2.5 MG TAB PO SCH (18:30)
[2016-06-24] MEDS: DILTIAZEM (CD) 240 MG CAP PO SCH (18:35)
[2016-06-24] MEDS: METOPROLOL 50 MG TAB PO SCH (21:19)
[2016-06-25] VITALS (12 sets, daily range): BP systolic 111–138; BP diastolic 59–92; PULSE 70–92; RESP 16–18
[2016-06-25] MEDS: PIPER-TAZO 3.375 GM IV (PMX) 100 ML IVPB SCH ×2 (06:41)
[2016-06-25] MEDS: POTASSIUM CHLORIDE (SR) 8 MEQ CAP PO SCH (09:00)
[2016-06-25] MEDS: FAMOTIDINE 20 MG INJ IV SCH (09:00)
[2016-06-25] MEDS: POTASSIUM CHLORIDE (SR) 20 MEQ TAB PO SCH (09:04)
[2016-06-25] MEDS: DILTIAZEM (CD) 240 MG CAP PO SCH (09:05)
[2016-06-25] MEDS: METOPROLOL 50 MG TAB PO SCH ×2 (09:05→21:03)
[2016-06-25] MEDS: FUROSEMIDE 40 MG INJ IV SCH (09:06)
[2016-06-25 10:25] LABS: ADD SCAN DIFF NO
[2016-06-25 10:30] LABS: ABNORMAL IP MESSAGE 1; HEMATOCRIT 47.6 % (37.0-47.0); MEAN CORPUSCULAR HEMOGLOBIN 28.1 pg (29.0-33.0); MEAN CORPUSCULAR HGB CONC 31.5 g/dl (32.0-37.0); MEAN CORPUSCULAR VOLUME 89.1 fl (82.0-101.0); MEAN PLATELET VOLUME 11.9 fl (7.4-10.4); PLATELET COUNT 607 10^3/UL (140-415); RED BLOOD COUNT 5.34 10^6/ul (4.20-5.40); RED CELL DISTRIBUTION WIDTH 17.8 % (11.5-14.5); WHITE BLOOD COUNT 26.1 10^3/ul (4.8-10.8)
[2016-06-25 10:40] LABS: POTASSIUM 3.7 mmol/L (3.5-5.1)
[2016-06-25 10:42] LABS: CREATININE 1.14 mg/dl (0.44-1.00)
[2016-06-25 10:43] LABS: CALCIUM 9.5 mg/dl (8.4-10.2)
[2016-06-25 13:22] LABS: EOSINOPHILS # 0.8 10^3/ul (0.0-0.5); MYELOCYTES # 0.5; NEUTROPHIL # 21.9 10^3/ul (1.6-7.5); OVALOCYTES 1+
--- NOTE | 2016-06-25 13:45 | PN ---
Date/Time of Note Date/Time of Note DATE: 06/25/16 TIME: 13:42 Assessment/Plan VTE Prophylaxis VTE Prophylaxis Intervention: other (Coumadin) Lines/Catheters IV Catheter Type (from Nrs): Peripheral IV Urinary Cath still in place: No Assessment/Plan Chief Complaint/Hosp Course ASSESSMENT AND PLAN: A 76-year-old female presenting with shortness of breath, signs of congestive heart failure exacerbation as well as leukocytosis and elevated indirect bilirubins. 1. Shortness of breath - slowly improving - again likely secondary to congestive heart failure. - continue IV lasix, BB, CCB, monitor ins and outs and daily weights. - f/u PT, OT consult rec's. - morphine, oxygen and nitrates p.r.n. as well. - given ECHO results (, MR, EF = 60%) - f/u CV rec's - will also change abx to meropenem given worsening leukocytosis, and get pulm consult 2. History of atrial fibrillation - rate controlled. INR is presently 2.25. - f/u INR and heart rate for now. - Continue Coumadin. - Monitor on telemetry floor. 3. Abdominal pain. Again, she had slightly elevated LFTs including indirect bilirubin, but her abdominal ultrasound only showed positive gallstones but no cholecystitis. - Continue to monitor liver profile. - Monitor for signs of any abdominal pain or nausea, vomiting -asymptomatic presently 4. Essential hypertension. Again see # 1. 5. Gastrointestinal prophylaxis. Pepcid. 6. Deep venous thrombosis prophylaxis - on Coumadin Problems: Subjective 24 Hr Interval Summary Free Text/Dictation Pt has less SOB, still some occasional cough. Denies fever. Seen by CV team. Exam/Review of Systems Vital Signs Vitals Vital Signs Date Time Temp Pulse Resp B/P Pulse Ox O2 Delivery O2 Flow Rate FiO2 06/25/16 12:03 72 06/25/16 11:36 97.7 18 111/59 96 06/25/16 08:45 2.0 06/24/16 00:33 Nasal Cannula Intake and Output 06/24/16 06/24/16 06/25/16 15:00 23:00 07:00 Intake Total 850 ml 550 ml Output Total 850 ml 400 ml Balance 0 ml 150 ml Exam GENERAL: The patient lying in bed, alert. No acute distress. Pleasant, family at bedside HEENT: Pupils equal, round, react to light. Extraocular muscles intact. NECK: Supple. No thyromegaly. LUNGS: less crackles heard at the bases bilaterally. No wheezes. CARDIOVASCULAR: Irregularly irregular heart rate, No rubs or gallops. ABDOMEN: Soft, nontender, nondistended. Normal bowel sounds. No rebound or guarding. MUSCULOSKELETAL: No lower extremity edema bilaterally. NEUROLOGIC: No focal deficits. Results Result Diagram: 06/25/16 1015 06/25/16 1015 Results 24 hrs Laboratory Tests Test 06/24/16 17:35 06/25/16 10:15 Lactic Acid Level 2.0 White Blood Count 26.1 H Red Blood Count 5.34 Hemoglobin 15.0 Hematocrit 47.6 H Mean Corpuscular Volume 89.1 Mean Corpuscular Hemoglobin 28.1 L Mean Corpuscular Hemoglobin Concent 31.5 L Red Cell Distribution Width 17.8 H Platelet Count 607 H Mean Platelet Volume 11.9 H Neutrophils % 84.0 H Band Neutrophils % 2.0 Lymphocytes % 4.0 L Monocytes % 4.0 Eosinophils % 3.0 Metamyelocytes % 1.0 H Myelocytes % 2.0 H Neutrophils # 21.9 H Lymphocytes # 1.0 Monocytes # 1.0 H Eosinophils # 0.8 H Metamyelocytes # 0.3 Myelocytes # 0.5 Differential Comment MANUAL DIFF Ovalocytes 1+ Sodium Level 135 Potassium Level 3.7 Chloride Level 100 Carbon Dioxide Level 24 Anion Gap 15 Blood Urea Nitrogen 29 H Creatinine 1.14 H Glucose Level 207 Calcium Level 9.5 Magnesium Level 2.1 Medications Medications Current Medications Ondansetron HCl (Zofran Inj) 4 mg Q6H PRN IV NAUSEA AND/OR VOMITING; Start at 19:00 Acetaminophen (Tylenol Tab) 650 mg Q6H PRN PO PAIN LEVEL 1-3 OR FEVER; Start at 19:00 Acetaminophen/ Hydrocodone Bitart ([place] (5/325)) 1 tab Q6H PRN PO MODERATE PAIN LEVEL 4-6; Start 06/23/16 at 19:00 Morphine Sulfate (morphine) 2 mg Q4H PRN IV SEVERE PAIN LEVEL 7-10; Start 06/23 at 19:00 Docusate Sodium (Colace) 100 mg Q12H PRN PO CONSTIPATION; Start 06/23/16 at 19: 00 Magnesium Hydroxide (Milk Of Mag) 30 ml DAILY PRN PO CONSTIPATION; Start at 19:00 Sodium Biphosphate/ Sodium Phosphate (Fleet Enema) 133 ml DAILY PRN [place] CONSTIPATION; Start 06/23/16 at 19:00 Famotidine (Pepcid Iv) 20 mg DAILY IV Last administered on 06/24/16 09:20; Admin Dose 20 MG; Start 06/23/16 at 21:00 Lorazepam (Ativan) 0.5 mg Q6H PRN IV ANXIETY; Start 06/23/16 at 19:00 Hydralazine HCl (Apresoline) 10 mg Q6H PRN IV ELEVATED BLOOD PRESSURE; Start at 19:00 Nitroglycerin (Nitroglycerin (Sl Tab) 0.4 Mg) 1 tab Q5M PRN SL ANGINA; Start at 19:00 Potassium Chloride (Micro-K) 8 meq DAILY PO Last administered on 06/24/16 09: 20; Admin Dose 8 MEQ; Start 06/24/16 at 09:00 Warfarin Sodium (Coumadin) 2.5 mg DAILY@17 PO Last administered on 06/24/16 18 :30; Admin Dose 2.5 MG; Start 06/24/16 at 17:00 Furosemide (Lasix) 40 mg DAILY IV Last administered on 06/25/16 09:06; Admin Dose 40 MG; Start 06/24/16 at 09:00 Phenol (Cepastat Lozenge) 1 lozenge Q1H PRN MT COUGH; Start 06/23/16 at 19:30 Potassium Chloride (Klor-Con 20) 40 meq DAILY PO Last administered on 09:04; Admin Dose 40 MEQ; Start 06/24/16 at 12:00 Guaifenesin (Robitussin Liquid Cup) 200 mg Q4H PRN PO COUGH; Start 06/24/16 at 12:30 Diltiazem HCl (Cardizem Cd) 240 mg DAILY PO Last administered on 06/25/16 09: 05; Admin Dose 240 MG; Start 06/24/16 at 18:30 Metoprolol Tartrate 50 mg 50 mg BID PO Last administered on 06/25/16 09:05; Admin Dose 50 MG; Start 06/24/16 at 21:00 Meropenem (Merrem 1 Gm/100 ml (Pmx)) 100 ml @ 200 mls/hr Q12 IVPB ; Start 06/25 at 12:00 JABIER MOREAU Jun 25, 2016 13:45
[2016-06-25 14:33] LABS: INR 2.2; PROTIME 24.7 Sec (12.2-14.2); PT RATIO 1.9
[2016-06-25] MEDS: MEROPENEM 1 GM/100 ML (PMX) 100 ML IVPB SCH ×2 (15:03→21:03)
--- NOTE | 2016-06-25 17:11 | CONS ---
Date/Time of Note Date/Time of Note DATE: 06/25/16 TIME: 17:09 Assessment/Plan Assessment/Plan Chief Complaint/Hosp Course Assessment: Acute on chronic diastolic heart failure - improving with diuresis Chronic atrial fibrillation - rapid ventricular response on presentation, rates now controlled Rheumatic heart disease Moderate to severe aortic stenosis Moderate to severe mitral stenosis, moderate mitral regurgitation Hypertension Sepsis - work up and antibiotics per primary team Recommendations: -echocardiogram results reviewed -change Lasix to 40mg PO daily -continue diltiazem 240mg PO daily and metoprolol 50mg PO BID -continue warfarin, goal INR 2-3 (novel anticoagulants not an option with valvular atrial fibrillation -as outpatient, 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 Rate controlled atrial fibrillation. Detailed Summary Additional Comments 14 point review of systems without changes. Exam/Review of Systems Vital Signs Vitals Vital Signs Date Time Temp Pulse Resp B/P Pulse Ox O2 Delivery O2 Flow Rate FiO2 06/25/16 16:06 70 06/25/16 14:54 97.8 18 133/63 96 06/25/16 08:45 2.0 06/24/16 00:33 Nasal Cannula Intake and Output 06/24/16 06/24/16 06/25/16 15:00 23:00 07:00 Intake Total 850 ml 550 ml Output Total 850 ml 400 ml Balance 0 ml 150 ml Exam Constitutional: alert, well developed Psych: nl mood/affect, no complaints Head: atraumatic, normocephalic Eyes: nl conjunctiva, nl lids ENMT: nl external ears & nose, nl nasal mucosa & septum Neck: non-tender, supple Respiratory: diminished breath sounds, No wheezing Cardiovascular: irregular rhythm, murmurs/extra sounds, No regular rate and rhythm Gastrointestinal: non-tender, soft Musculoskeletal: nl extremities to inspection Extremities: No clubbing, No cyanosis, No edema Neurological: nl mental status, nl speech Skin: nl turgor Results Result Diagram: 06/25/16 1015 06/25/16 1015 Results 24 hrs Laboratory Tests Test 06/24/16 17:35 06/25/16 10:15 06/25/16 13:55 Lactic Acid Level 2.0 White Blood Count 26.1 H Red Blood Count 5.34 Hemoglobin 15.0 Hematocrit 47.6 H Mean Corpuscular Volume 89.1 Mean Corpuscular Hemoglobin 28.1 L Mean Corpuscular Hemoglobin Concent 31.5 L Red Cell Distribution Width 17.8 H Platelet Count 607 H Mean Platelet Volume 11.9 H Neutrophils % 84.0 H Band Neutrophils % 2.0 Lymphocytes % 4.0 L Monocytes % 4.0 Eosinophils % 3.0 Metamyelocytes % 1.0 H Myelocytes % 2.0 H Neutrophils # 21.9 H Lymphocytes # 1.0 Monocytes # 1.0 H Eosinophils # 0.8 H Metamyelocytes # 0.3 Myelocytes # 0.5 Differential Comment MANUAL DIFF Ovalocytes 1+ Sodium Level 135 Potassium Level 3.7 Chloride Level 100 Carbon Dioxide Level 24 Anion Gap 15 Blood Urea Nitrogen 29 H Creatinine 1.14 H Glucose Level 207 Calcium Level 9.5 Magnesium Level 2.1 Prothrombin Time 24.7 H Prothrombin Time Ratio 1.9 INR International Normalized Ratio 2.20 Medications Medications Current Medications Ondansetron HCl (Zofran Inj) 4 mg Q6H PRN IV NAUSEA AND/OR VOMITING; Start at 19:00 Acetaminophen (Tylenol Tab) 650 mg Q6H PRN PO PAIN LEVEL 1-3 OR FEVER; Start at 19:00 Acetaminophen/ Hydrocodone Bitart ([place] (5/325)) 1 tab Q6H PRN PO MODERATE PAIN LEVEL 4-6; Start 06/23/16 at 19:00 Morphine Sulfate (morphine) 2 mg Q4H PRN IV SEVERE PAIN LEVEL 7-10; Start 06/23 at 19:00 Docusate Sodium (Colace) 100 mg Q12H PRN PO CONSTIPATION; Start 06/23/16 at 19: 00 Magnesium Hydroxide (Milk Of Mag) 30 ml DAILY PRN PO CONSTIPATION; Start at 19:00 Sodium Biphosphate/ Sodium Phosphate (Fleet Enema) 133 ml DAILY PRN [place] CONSTIPATION; Start 06/23/16 at 19:00 Famotidine (Pepcid Iv) 20 mg DAILY IV Last administered on 06/24/16t 09:20; Admin Dose 20 MG; Start 06/23/16 at 21:00 Lorazepam (Ativan) 0.5 mg Q6H PRN IV ANXIETY; Start 06/23/16 at 19:00 Hydralazine HCl (Apresoline) 10 mg Q6H PRN IV ELEVATED BLOOD PRESSURE; Start at 19:00 Nitroglycerin (Nitroglycerin (Sl Tab) 0.4 Mg) 1 tab Q5M PRN SL ANGINA; Start at 19:00 Potassium Chloride (Micro-K) 8 meq DAILY PO Last administered on 06/24/16 09: 20; Admin Dose 8 MEQ; Start 06/24/16 at 09:00 Warfarin Sodium (Coumadin) 2.5 mg DAILY@17 PO Last administered on 06/24/16 18 :30; Admin Dose 2.5 MG; Start 06/24/16 at 17:00 Furosemide (Lasix) 40 mg DAILY IV Last administered on 06/25/16 09:06; Admin Dose 40 MG; Start 06/24/16 at 09:00 Phenol (Cepastat Lozenge) 1 lozenge Q1H PRN [place] COUGH; Start 06/23/16 at 19:30 Potassium Chloride (Klor-Con 20) 40 meq DAILY PO Last administered on 09:04; Admin Dose 40 MEQ; Start 06/24/16 at 12:00 Guaifenesin (Robitussin Liquid Cup) 200 mg Q4H PRN PO COUGH; Start 06/24/16 at 12:30 Diltiazem HCl (Cardizem Cd) 240 mg DAILY PO Last administered on 06/25/16 09: 05; Admin Dose 240 MG; Start 06/24/16 at 18:30 Metoprolol Tartrate 50 mg 50 mg BID PO Last administered on 06/25/16 09:05; Admin Dose 50 MG; Start 06/24/16 at 21:00 Meropenem (Merrem 1 Gm/100 ml (Pmx)) 100 ml @ 200 mls/hr Q12 IVPB Last administered on 06/25/16 15:03; Admin Dose 200 MLS/HR; Start 06/25/16 at 12:00 CNADELARIO KULKARNI MD Jun 25, 2016 17:11
[2016-06-25] MEDS: WARFARIN 2.5 MG TAB PO SCH (17:45)
[2016-06-26] VITALS (11 sets, daily range): BP systolic 110–144; BP diastolic 55–64; PULSE 60–77; RESP 16–18
[2016-06-26 07:06] LABS: ADD SCAN DIFF NO
[2016-06-26 07:09] LABS: BASOPHIL # 0.3 10^3/ul (0.0-0.1); BASOPHILS % 1.6 % (0.0-2.0); EOSINOPHILS # 0.8 10^3/ul (0.0-0.5); EOSINOPHILS % 3.7 % (0.0-7.0); HEMATOCRIT 44.9 % (37.0-47.0); HEMOGLOBIN 14.1 g/dl (12.0-16.0); LYMPHOCYTES # 1.6 10^3/ul (0.8-2.9); LYMPHOCYTES % 7.6 % (15.0-51.0); MEAN CORPUSCULAR HGB CONC 31.4 g/dl (32.0-37.0); MEAN CORPUSCULAR VOLUME 89.1 fl (82.0-101.0); MEAN PLATELET VOLUME 12.3 fl (7.4-10.4); MONOCYTE # 1.3 10^3/ul (0.3-0.9); MONOCYTES % 6.1 % (0.0-11.0); NEUTROPHIL # 16.2 10^3/ul (1.6-7.5); NEUTROPHILS % 76.3 % (39.0-77.0); PLATELET COUNT 515 10^3/UL (140-415); RED BLOOD COUNT 5.04 10^6/ul (4.20-5.40); RED CELL DISTRIBUTION WIDTH 17.5 % (11.5-14.5); WHITE BLOOD COUNT 21.2 10^3/ul (4.8-10.8)
[2016-06-26 07:15] LABS: INR 1.96; PROTIME 22.5 Sec (12.2-14.2); PT RATIO 1.8
[2016-06-26 07:20] LABS: POTASSIUM 3.6 mmol/L (3.5-5.1)
[2016-06-26 07:23] LABS: CREATININE 1.12 mg/dl (0.44-1.00)
[2016-06-26 07:24] LABS: CALCIUM 9.2 mg/dl (8.4-10.2)
[2016-06-26] MEDS: POTASSIUM CHLORIDE (SR) 20 MEQ TAB PO SCH (10:08)
[2016-06-26] MEDS: FAMOTIDINE 20 MG INJ IV SCH (10:08)
[2016-06-26] MEDS: DILTIAZEM (CD) 240 MG CAP PO SCH (10:08)
[2016-06-26] MEDS: FUROSEMIDE 40 MG TAB PO SCH (10:09)
[2016-06-26] MEDS: METOPROLOL 50 MG TAB PO SCH ×2 (10:10→21:18)
[2016-06-26] MEDS: POTASSIUM CHLORIDE (SR) 8 MEQ CAP PO SCH (10:10)
[2016-06-26] MEDS: MEROPENEM 1 GM/100 ML (PMX) 100 ML IVPB SCH ×2 (10:10→21:18)
--- NOTE | 2016-06-26 13:00 | CONS ---
Date/Time of Note Date/Time of Note DATE: 06/26/16 TIME: 12:54 Assessment/Plan Assessment/Plan Additional Assessment/Plan Chest x-ray was reviewed from of this month which is showing cardio megaly with changes of mild pulmonary edema. Possibly superimposed bronchopneumonia. Assessment recommendations; 1. Patient admitted for chest pain difficult to rule out etiology. Patient however does have history of rheumatic fever and is awaiting open heart surgery for by a valvular replacement. 2. Chronic atrial fibrillation. 3. Hypertension. 4. Congestive heart failure. Continue current treatment. Add Zithromax orally 5 mg daily. Continue meropenem. Consultation Date/Type/Reason Admit Date/Time Jun 23, 2016 at 18:01 Date of Consultation: Jun 26, 2016 Type of Consultation: Pulmonary Reason for Consultation Pulmonary consultations requested for evaluation of possible pneumonia versus bronchitis. History presenting any; patient is a very pleasant 76-year-old white lady who was admitted on of this month with complaints of having chest pain for 2 days prior to presentation pain is described as sharp and increased with deep breathing patient also has been having some cough for the last couple of months without any sputum production, any wheezing. Upon evaluation a chest x-ray was done which is showing possibly bronchopneumonia versus mild pulmonary edema. Patient did have a significantly elevated BNP level. According to her, she is markedly improved over the last 24 hours. She denies any further chest pain. Shortness of breath also is improving, denies any coughing, wheezing sputum production. Past medical history; 1. Patient with a history of rheumatic fever awaiting by valvular open heart surgery. 2. Patient has bronchitis almost on an annual basis. 3. Chronic atrial fibrillation. On long-term Coumadin. 4. Hypertension. Medications; were reviewed. Allergies; are none. Social history; patient never smoked. No swelling or drug abuse. Family history; patient has 2 children. Various family members of hypertension. 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 Review of systems; denies any headache, visual changes. Sinus symptoms. Any chest pain. Shortness of breath is improving. Complains of scant cough. Denies any hemoptysis or sputum production. Denies any abdominal pain, nausea vomiting. Physically patient is not very active. Does complain of dyspnea on exertion. Denies any edema, any GI or urinary symptoms. Denies any weight loss. Has a good appetite. Exam; elderly lady, currently in no distress awake and alert. Psychological: nl mood/affect, no complaints Social History Alcohol Use: none Smoking Status: Former smoker (remote history of light smoking) Drug Use: none Exam/Review of Systems Vital Signs Vitals Vital Signs Date Time Temp Pulse Resp B/P Pulse Ox O2 Delivery O2 Flow Rate FiO2 06/26/16 12:27 76 06/26/16 11:22 98.5 18 144/61 95 06/26/16 09:47 21 06/25/16 19:30 2.0 06/24/16 00:33 Nasal Cannula Intake and Output 06/25/16 06/25/16 06/26/16 15:00 23:00 07:00 Intake Total 750 ml 600 ml Balance 750 ml 600 ml Exam HEENT examination; supple neck, no JVD. No lymphadenopathy. Midline trachea. No thyromegaly. She has a right intraocular lens implant. Patient multiple carious teeth. No neck masses. No thyromegaly. No lymphadenopathy. Chest examination; diminished breath sound bilaterally without any added sounds. S1-S2 audible there is a pansystolic murmur in the mitral and aortic areas. Grade 2/6. Irregular rhythm. Abdomen examination; is benign. Extremity exam is; no peripheral edema. Pulses 1+ bilaterally. There is no clubbing. 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 Results Result Diagram: 06/26/1662606/26/1627 Results 24 hrs Laboratory Tests Test 06/25/16 13:55 06/26/16 06:27 Prothrombin Time 24.7 H 22.5 H Prothrombin Time Ratio 1.9 1.8 INR International Normalized Ratio 2.20 1.96 White Blood Count 21.2 H Red Blood Count 5.04 Hemoglobin 14.1 Hematocrit 44.9 Mean Corpuscular Volume 89.1 Mean Corpuscular Hemoglobin 28.0 L Mean Corpuscular Hemoglobin Concent 31.4 L Red Cell Distribution Width 17.5 H Platelet Count 515 H Mean Platelet Volume 12.3 H Neutrophils % 76.3 Lymphocytes % 7.6 L Monocytes % 6.1 Eosinophils % 3.7 Basophils % 1.6 Nucleated Red Blood Cells % 0.0 Neutrophils # 16.2 H Lymphocytes # 1.6 Monocytes # 1.3 H Eosinophils # 0.8 H Basophils # 0.3 H Nucleated Red Blood Cells # 0.0 Sodium Level 137 Potassium Level 3.6 Chloride Level 101 Carbon Dioxide Level 26 Anion Gap 14 Blood Urea Nitrogen 33 H Creatinine 1.12 H Glucose Level 123 # Calcium Level 9.2 Medications Medications Current Medications Ondansetron HCl (Zofran Inj) 4 mg Q6H PRN IV NAUSEA AND/OR VOMITING; Start at 19:00 Acetaminophen (Tylenol Tab) 650 mg Q6H PRN PO PAIN LEVEL 1-3 OR FEVER; Start at 19:00 Acetaminophen/ Hydrocodone Bitart ([place] (5/325)) 1 tab Q6H PRN PO MODERATE PAIN LEVEL 4-6; Start 06/23/16 at 19:00 Morphine Sulfate (morphine) 2 mg Q4H PRN IV SEVERE PAIN LEVEL 7-10; Start 06/23 at 19:00 Docusate Sodium (Colace) 100 mg Q12H PRN PO CONSTIPATION; Start 06/23/16 at 19: 00 Magnesium Hydroxide (Milk Of Mag) 30 ml DAILY PRN PO CONSTIPATION; Start at 19:00 Sodium Biphosphate/ Sodium Phosphate (Fleet Enema) 133 ml DAILY PRN [place] CONSTIPATION; Start 06/23/16 at 19:00 Famotidine (Pepcid Iv) 20 mg DAILY IV Last administered on 06/26/16 10:08; Admin Dose 20 MG; Start 06/23/16 at 21:00 Lorazepam (Ativan) 0.5 mg Q6H PRN IV ANXIETY; Start 06/23/16 at 19:00 Hydralazine HCl (Apresoline) 10 mg Q6H PRN IV ELEVATED BLOOD PRESSURE; Start at 19:00 Nitroglycerin (Nitroglycerin (Sl Tab) 0.4 Mg) 1 tab Q5M PRN SL ANGINA; Start at 19:00 Potassium Chloride (Micro-K) 8 meq DAILY PO Last administered on 06/26/16 10: 10; Admin Dose 8 MEQ; Start 06/24/16 at 09:00 Warfarin Sodium (Coumadin) 2.5 mg DAILY@17 PO Last administered on 06/25/16 17 :45; Admin Dose 2.5 MG; Start 06/24/16 at 17:00 Phenol (Cepastat Lozenge) 1 lozenge Q1H PRN [place] COUGH; Start 06/23/16 at 19:30 Potassium Chloride (Klor-Con 20) 40 meq DAILY PO Last administered on 10:08; Admin Dose 40 MEQ; Start 06/24/16 at 12:00 Guaifenesin (Robitussin Liquid Cup) 200 mg Q4H PRN PO COUGH; Start 06/24/16 at 12:30 Diltiazem HCl (Cardizem Cd) 240 mg DAILY PO Last administered on 06/26/16 10: 08; Admin Dose 240 MG; Start 06/24/16 at 18:30 Metoprolol Tartrate 50 mg 50 mg BID PO Last administered on 06/26/16 10:10; Admin Dose 50 MG; Start 06/24/16 at 21:00 Meropenem (Merrem 1 Gm/100 ml (Pmx)) 100 ml @ 200 mls/hr Q12 IVPB Last administered on 06/26/16 10:10; Admin Dose 200 MLS/HR; Start 06/25/16 at 12:00 Furosemide (Lasix) 40 mg DAILY PO Last administered on 06/26/16 10:09; Admin Dose 40 MG; Start 06/26/16 at 09:00 VIRGINIA STEPHENS Jun 26, 2016 13:00
[2016-06-26] MEDS: AZITHROMYCIN 250 MG TAB PO SCH (13:27)
--- NOTE | 2016-06-26 14:05 | PN ---
Date/Time of Note Date/Time of Note DATE: 06/26/16 TIME: 14:02 Assessment/Plan VTE Prophylaxis VTE Prophylaxis Intervention: other (Coumadin) Lines/Catheters [facility] [place] [facility] Urinary Cath still in place: No Assessment/Plan Chief Complaint/Hosp Course ASSESSMENT AND PLAN: A 76-year-old female presenting with shortness of breath, signs of congestive heart failure exacerbation as well as leukocytosis and elevated indirect bilirubins. 1. Shortness of breath - slowly improving - again likely secondary to congestive heart failure + possible bronchopneumonia. - continue IV lasix, BB, CCB, monitor ins and outs and daily weights. - f/u PT, OT consult rec's. - morphine, oxygen and nitrates p.r.n. as well. - given ECHO results (, MR, EF = 60%) - f/u CV rec's - continue meropenem, azithro added as well, f/u pulm consult rec's 2. History of atrial fibrillation - rate controlled. INR is presently 1.96 today - f/u INR and heart rate for now. - Continue Coumadin. - Monitor on telemetry floor. 3. Abdominal pain. Again, she had slightly elevated LFTs including indirect bilirubin, but her abdominal ultrasound only showed positive gallstones but no cholecystitis. - Continue to monitor liver profile. - Monitor for signs of any abdominal pain or nausea, vomiting -asymptomatic presently 4. Essential hypertension. Again see # 1. 5. Gastrointestinal prophylaxis. Pepcid. 6. Deep venous thrombosis prophylaxis - on Coumadin Problems: Subjective 24 Hr Interval Summary Free Text/Dictation Less SOB, seen by pulm team. Exam/Review of Systems Vital Signs Vitals Vital Signs Date Time Temp Pulse Resp B/P Pulse Ox O2 Delivery O2 Flow Rate FiO2 06/26/16 12:27 76 06/26/16 11:22 98.5 18 144/61 95 06/26/16 09:47 21 06/25/16 19:30 2.0 06/24/16 00:33 Nasal Cannula Intake and Output 06/25/16 06/25/16 06/26/16 15:00 23:00 07:00 Intake Total 750 ml 600 ml Balance 750 ml 600 ml Exam GENERAL: The patient lying in bed, alert. No acute distress. Pleasant, family at bedside HEENT: Pupils equal, round, react to light. Extraocular muscles intact. NECK: Supple. No thyromegaly. LUNGS: less crackles heard at the bases bilaterally. No wheezes. CARDIOVASCULAR: Irregularly irregular heart rate, No rubs or gallops. ABDOMEN: Soft, nontender, nondistended. Normal bowel sounds. No rebound or guarding. MUSCULOSKELETAL: No lower extremity edema bilaterally. NEUROLOGIC: No focal deficits. Results Result Diagram: 06/26/1627 06/26/1627 Results 24 hrs Laboratory Tests Test 06/26/16 06:27 White Blood Count 21.2 H Red Blood Count 5.04 Hemoglobin 14.1 Hematocrit 44.9 Mean Corpuscular Volume 89.1 Mean Corpuscular Hemoglobin 28.0 L Mean Corpuscular Hemoglobin Concent 31.4 L Red Cell Distribution Width 17.5 H Platelet Count 515 H Mean Platelet Volume 12.3 H Neutrophils % 76.3 Lymphocytes % 7.6 L Monocytes % 6.1 Eosinophils % 3.7 Basophils % 1.6 Nucleated Red Blood Cells % 0.0 Neutrophils # 16.2 H Lymphocytes # 1.6 Monocytes # 1.3 H Eosinophils # 0.8 H Basophils # 0.3 H Nucleated Red Blood Cells # 0.0 Prothrombin Time 22.5 H Prothrombin Time Ratio 1.8 INR International Normalized Ratio 1.96 Sodium Level 137 Potassium Level 3.6 Chloride Level 101 Carbon Dioxide Level 26 Anion Gap 14 Blood Urea Nitrogen 33 H Creatinine 1.12 H Glucose Level 123 # Calcium Level 9.2 Medications Medications Current Medications Ondansetron HCl (Zofran Inj) 4 mg Q6H PRN IV NAUSEA AND/OR VOMITING; Start at 19:00 Acetaminophen (Tylenol Tab) 650 mg Q6H PRN PO PAIN LEVEL 1-3 OR FEVER; Start at 19:00 Acetaminophen/ Hydrocodone Bitart ([place] (5/325)) 1 tab Q6H PRN PO MODERATE PAIN LEVEL 4-6; Start 06/23/16 at 19:00 Morphine Sulfate (morphine) 2 mg Q4H PRN IV SEVERE PAIN LEVEL 7-10; Start 06/23 at 19:00 Docusate Sodium (Colace) 100 mg Q12H PRN PO CONSTIPATION; Start 06/23/16 at 19: 00 Magnesium Hydroxide (Milk Of Mag) 30 ml DAILY PRN PO CONSTIPATION; Start at 19:00 Sodium Biphosphate/ Sodium Phosphate (Fleet Enema) 133 ml DAILY PRN [place] CONSTIPATION; Start 06/23/16 at 19:00 Famotidine (Pepcid Iv) 20 mg DAILY IV Last administered on 06/26/16 10:08; Admin Dose 20 MG; Start 06/23/16 at 21:00 Lorazepam (Ativan) 0.5 mg Q6H PRN IV ANXIETY; Start 06/23/16 at 19:00 Hydralazine HCl (Apresoline) 10 mg Q6H PRN IV ELEVATED BLOOD PRESSURE; Start at 19:00 Nitroglycerin (Nitroglycerin (Sl Tab) 0.4 Mg) 1 tab Q5M PRN [place] ANGINA; Start at 19:00 Potassium Chloride (Micro-K) 8 meq DAILY PO Last administered on 06/26/16 10: 10; Admin Dose 8 MEQ; Start 06/24/16 at 09:00 Warfarin Sodium (Coumadin) 2.5 mg DAILY@17 PO Last administered on 06/25/16 17 :45; Admin Dose 2.5 MG; Start 06/24/16 at 17:00 Phenol (Cepastat Lozenge) 1 lozenge Q1H PRN [place] COUGH; Start 06/23/16 at 19:30 Potassium Chloride (Klor-Con 20) 40 meq DAILY PO Last administered on 10:08; Admin Dose 40 MEQ; Start 06/24/16 at 12:00 Guaifenesin (Robitussin Liquid Cup) 200 mg Q4H PRN PO COUGH; Start 06/24/16 at 12:30 Diltiazem HCl (Cardizem Cd) 240 mg DAILY PO Last administered on 06/26/16 10: 08; Admin Dose 240 MG; Start 06/24/16 at 18:30 Metoprolol Tartrate 50 mg 50 mg BID PO Last administered on 06/26/16 10:10; Admin Dose 50 MG; Start 06/24/16 at 21:00 Meropenem (Merrem 1 Gm/100 ml (Pmx)) 100 ml @ 200 mls/hr Q12 IVPB Last administered on 06/26/16 10:10; Admin Dose 200 MLS/HR; Start 06/25/16 at 12:00 Furosemide (Lasix) 40 mg DAILY PO Last administered on 06/26/16 10:09; Admin Dose 40 MG; Start 06/26/16 at 09:00 Azithromycin (Zithromax) 500 mg DAILY PO Last administered on 06/26/16 13:27; Admin Dose 500 MG; Start 06/26/16 at 13:00 JABIER MOREAU Jun 26, 2016 14:05
--- NOTE | 2016-06-26 15:21 | CONS ---
Date/Time of Note Date/Time of Note DATE: 06/26/16 TIME: 15:20 Assessment/Plan Assessment/Plan Chief Complaint/Hosp Course Assessment: Acute on chronic diastolic heart failure - improved with diuresis Chronic atrial fibrillation - rapid ventricular response on presentation, rates now controlled Rheumatic heart disease Moderate to severe aortic stenosis Moderate to severe mitral stenosis, moderate mitral regurgitation Hypertension Sepsis - work up and antibiotics per primary team Recommendations: -echocardiogram results reviewed -continue Lasix 40mg PO daily -continue diltiazem 240mg PO daily and metoprolol 50mg PO BID -continue warfarin, goal INR 2-3 (novel anticoagulants not an option with valvular atrial fibrillation -as outpatient, 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 Rate controlled atrial fibrillation. Detailed Summary Additional Comments 14 point review of systems without changes. Exam/Review of Systems Vital Signs Vitals Vital Signs Date Time Temp Pulse Resp B/P Pulse Ox O2 Delivery O2 Flow Rate FiO2 06/26/16 12:27 76 06/26/16 11:22 98.5 18 144/61 95 06/26/16 09:47 21 06/25/16 19:30 2.0 06/24/16 00:33 Nasal Cannula Intake and Output 06/25/16 06/25/16 06/26/16 15:00 23:00 07:00 Intake Total 750 ml 600 ml Balance 750 ml 600 ml Exam Constitutional: alert, well developed Psych: nl mood/affect, no complaints Head: atraumatic, normocephalic Eyes: nl conjunctiva, nl lids ENMT: nl external ears & nose, nl nasal mucosa & septum Neck: non-tender, supple Respiratory: diminished breath sounds, No wheezing Cardiovascular: irregular rhythm, murmurs/extra sounds, No regular rate and rhythm Gastrointestinal: non-tender, soft Musculoskeletal: nl extremities to inspection Extremities: No clubbing, No cyanosis, No edema Neurological: nl mental status, nl speech Skin: nl turgor Results Result Diagram: 06/26/16 0627 06/26/16 0627 Results 24 hrs Laboratory Tests Test 06/26/16 06:27 White Blood Count 21.2 H Red Blood Count 5.04 Hemoglobin 14.1 Hematocrit 44.9 Mean Corpuscular Volume 89.1 Mean Corpuscular Hemoglobin 28.0 L Mean Corpuscular Hemoglobin Concent 31.4 L Red Cell Distribution Width 17.5 H Platelet Count 515 H Mean Platelet Volume 12.3 H Neutrophils % 76.3 Lymphocytes % 7.6 L Monocytes % 6.1 Eosinophils % 3.7 Basophils % 1.6 Nucleated Red Blood Cells % 0.0 Neutrophils # 16.2 H Lymphocytes # 1.6 Monocytes # 1.3 H Eosinophils # 0.8 H Basophils # 0.3 H Nucleated Red Blood Cells # 0.0 Prothrombin Time 22.5 H Prothrombin Time Ratio 1.8 INR International Normalized Ratio 1.96 Sodium Level 137 Potassium Level 3.6 Chloride Level 101 Carbon Dioxide Level 26 Anion Gap 14 Blood Urea Nitrogen 33 H Creatinine 1.12 H Glucose Level 123 # Calcium Level 9.2 Medications Medications Current Medications Ondansetron HCl (Zofran Inj) 4 mg Q6H PRN IV NAUSEA AND/OR VOMITING; Start at 19:00 Acetaminophen (Tylenol Tab) 650 mg Q6H PRN PO PAIN LEVEL 1-3 OR FEVER; Start at 19:00 Acetaminophen/ Hydrocodone Bitart ([place] (5/325)) 1 tab Q6H PRN PO MODERATE PAIN LEVEL 4-6; Start 06/23/16 at 19:00 Morphine Sulfate (morphine) 2 mg Q4H PRN IV SEVERE PAIN LEVEL 7-10; Start 06/23 at 19:00 Docusate Sodium (Colace) 100 mg Q12H PRN PO CONSTIPATION; Start 06/23/16 at 19: 00 Magnesium Hydroxide (Milk Of Mag) 30 ml DAILY PRN PO CONSTIPATION; Start at 19:00 Sodium Biphosphate/ Sodium Phosphate (Fleet Enema) 133 ml DAILY PRN [place] CONSTIPATION; Start 06/23/16 at 19:00 Famotidine (Pepcid Iv) 20 mg DAILY IV Last administered on 06/26/16t 10:08; Admin Dose 20 MG; Start 06/23/16 at 21:00 Lorazepam (Ativan) 0.5 mg Q6H PRN IV ANXIETY; Start 06/23/16 at 19:00 Hydralazine HCl (Apresoline) 10 mg Q6H PRN IV ELEVATED BLOOD PRESSURE; Start at 19:00 Nitroglycerin (Nitroglycerin (Sl Tab) 0.4 Mg) 1 tab Q5M PRN SL ANGINA; Start at 19:00 Potassium Chloride (Micro-K) 8 meq DAILY PO Last administered on 06/26/16 10: 10; Admin Dose 8 MEQ; Start 06/24/16 at 09:00 Warfarin Sodium (Coumadin) 2.5 mg DAILY@17 PO Last administered on 06/25/16 17 :45; Admin Dose 2.5 MG; Start 06/24/16 at 17:00 Phenol (Cepastat Lozenge) 1 lozenge Q1H PRN [place] COUGH; Start 06/23/16 at 19:30 Potassium Chloride (Klor-Con 20) 40 meq DAILY PO Last administered on 10:08; Admin Dose 40 MEQ; Start 06/24/16 at 12:00 Guaifenesin (Robitussin Liquid Cup) 200 mg Q4H PRN PO COUGH; Start 06/24/16 at 12:30 Diltiazem HCl (Cardizem Cd) 240 mg DAILY PO Last administered on 06/26/16 10: 08; Admin Dose 240 MG; Start 06/24/16 at 18:30 Metoprolol Tartrate 50 mg 50 mg BID PO Last administered on 06/26/16 10:10; Admin Dose 50 MG; Start 06/24/16 at 21:00 Meropenem (Merrem 1 Gm/100 ml (Pmx)) 100 ml @ 200 mls/hr Q12 IVPB Last administered on 06/26/16 10:10; Admin Dose 200 MLS/HR; Start 06/25/16 at 12:00 Furosemide (Lasix) 40 mg DAILY PO Last administered on 06/26/16 10:09; Admin Dose 40 MG; Start 06/26/16 at 09:00 Azithromycin (Zithromax) 500 mg DAILY PO Last administered on 06/26/16 13:27; Admin Dose 500 MG; Start 06/26/16 at 13:00 CANDELARIO KULKARNI MD Jun 26, 2016 15:21
[2016-06-26] MEDS: WARFARIN 2.5 MG TAB PO SCH (18:01)
[2016-06-27] VITALS (8 sets, daily range): BP systolic 115–148; BP diastolic 50–64; PULSE 65–77; RESP 18–20
--- NOTE | 2016-06-27 07:20 | CONS ---
Date/Time of Note Date/Time of Note DATE: 06/27/16 TIME: 07:17 Assessment/Plan Assessment/Plan Additional Assessment/Plan Assessment recommendations; 1. Patient admitted for bilateral bronchopneumonia with significant clinical improvement. 2. History of chronic atrial fibrillation. 3. History of rheumatic fever patient awaiting bi-valvular surgery. 4. History of hypertension. 5. CHF. Which is clinically compensated now. Continue current treatment. Consultation Date/Type/Reason Admit Date/Time Jun 23, 2016 at 18:01 Initial Consult Date 06/26/16 Type of Consultation: Pulmonary 24 HR Interval Summary Free Text/Dictation Patient condition is stable. Denies any shortness of breath. Cough is improving. Denies any wheezing. Any sputum production. General exam; elderly lady, currently in no distress awake and alert. Exam/Review of Systems Vital Signs Vitals Vital Signs Date Time Temp Pulse Resp B/P Pulse Ox O2 Delivery O2 Flow Rate FiO2 06/27/16 04:06 97.4 60 18 128/60 96 06/26/16 19:15 2.0 06/26/16 09:47 21 06/24/16 00:33 Nasal Cannula Intake and Output 06/26/16 06/26/16 06/27/16 15:00 23:00 07:00 Intake Total 100 ml 840 ml 750 ml Balance 100 ml 840 ml 750 ml Exam HEENT exam is; supple neck, positive JVD. No lymphadenopathy. Midline trachea. No thyromegaly. Pharynx is clear. No neck masses. Pupils are small bilaterally. Chest examination; diminished but clear breath sounds bilaterally. S1-S2 audible there is a pansystolic murmur best heard in the mitral area. Irregular rhythm. Abdomen examination; soft, nontender. No organomegaly. Bowel sounds audible. Extremity examination; no peripheral edema. Pulses 1+ bilaterally. 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 Results Result Diagram: 06/26/1662606/26/16626 Medications Medications Current Medications Ondansetron HCl (Zofran Inj) 4 mg Q6H PRN IV NAUSEA AND/OR VOMITING; Start at 19:00 Acetaminophen (Tylenol Tab) 650 mg Q6H PRN PO PAIN LEVEL 1-3 OR FEVER; Start at 19:00 Acetaminophen/ Hydrocodone Bitart ([place] (5/325)) 1 tab Q6H PRN PO MODERATE PAIN LEVEL 4-6; Start 06/23/16 at 19:00 Morphine Sulfate (morphine) 2 mg Q4H PRN IV SEVERE PAIN LEVEL 7-10; Start 06/23 at 19:00 Docusate Sodium (Colace) 100 mg Q12H PRN PO CONSTIPATION; Start 06/23/16 at 19: 00 Magnesium Hydroxide (Milk Of Mag) 30 ml DAILY PRN PO CONSTIPATION; Start at 19:00 Sodium Biphosphate/ Sodium Phosphate (Fleet Enema) 133 ml DAILY PRN RI CONSTIPATION; Start 06/23/16 at 19:00 Famotidine (Pepcid Iv) 20 mg DAILY IV Last administered on 06/26/16 10:08; Admin Dose 20 MG; Start 06/23/16 at 21:00 Lorazepam (Ativan) 0.5 mg Q6H PRN IV ANXIETY; Start 06/23/16 at 19:00 Hydralazine HCl (Apresoline) 10 mg Q6H PRN IV ELEVATED BLOOD PRESSURE; Start at 19:00 Nitroglycerin (Nitroglycerin (Sl Tab) 0.4 Mg) 1 tab Q5M PRN SL ANGINA; Start at 19:00 Warfarin Sodium (Coumadin) 2.5 mg DAILY@17 PO Last administered on 06/26/16 18 :01; Admin Dose 2.5 MG; Start 06/24/16 at 17:00 Phenol (Cepastat Lozenge) 1 lozenge Q1H PRN MT COUGH; Start 06/23/16 at 19:30 Potassium Chloride (Klor-Con 20) 40 meq DAILY PO Last administered on 10:08; Admin Dose 40 MEQ; Start 06/24/16 at 12:00 Guaifenesin (Robitussin Liquid Cup) 200 mg Q4H PRN PO COUGH; Start 06/24/16 at 12:30 Diltiazem HCl (Cardizem Cd) 240 mg DAILY PO Last administered on 06/26/16 10: 08; Admin Dose 240 MG; Start 06/24/16 at 18:30 Metoprolol Tartrate 50 mg 50 mg BID PO Last administered on 06/26/16 21:18; Admin Dose 50 MG; Start 06/24/16 at 21:00 Meropenem (Merrem 1 Gm/100 ml (Pmx)) 100 ml @ 200 mls/hr Q12 IVPB Last administered on 06/26/16 21:18; Admin Dose 200 MLS/HR; Start 06/25/16 at 12:00 Furosemide (Lasix) 40 mg DAILY PO Last administered on 06/26/16 10:09; Admin Dose 40 MG; Start 06/26/16 at 09:00 Azithromycin (Zithromax) 500 mg DAILY PO Last administered on 06/26/16 13:27; Admin Dose 500 MG; Start 06/26/16 at 13:00 [place] STEPHENS Jun 27, 2016 07:19
[2016-06-27] MEDS: FUROSEMIDE 40 MG TAB PO SCH (09:01)
[2016-06-27] MEDS: AZITHROMYCIN 250 MG TAB PO SCH (09:02)
[2016-06-27] MEDS: METOPROLOL 50 MG TAB PO SCH (09:02)
[2016-06-27] MEDS: MEROPENEM 1 GM/100 ML (PMX) 100 ML IVPB SCH (09:03)
[2016-06-27] MEDS: FAMOTIDINE 20 MG INJ IV SCH (09:03)
[2016-06-27] MEDS: DILTIAZEM (CD) 240 MG CAP PO SCH (09:03)
[2016-06-27] MEDS: POTASSIUM CHLORIDE (SR) 20 MEQ TAB PO SCH (09:03)
[2016-06-27 10:45] LABS: ADD SCAN DIFF NO
[2016-06-27 10:56] LABS: BASOPHIL # 0.3 10^3/ul (0.0-0.1); BASOPHILS % 1.4 % (0.0-2.0); EOSINOPHILS # 0.7 10^3/ul (0.0-0.5); EOSINOPHILS % 3.8 % (0.0-7.0); HEMOGLOBIN 14.4 g/dl (12.0-16.0); LYMPHOCYTES # 1.1 10^3/ul (0.8-2.9); MEAN CORPUSCULAR HEMOGLOBIN 27.7 pg (29.0-33.0); MEAN CORPUSCULAR HGB CONC 30.6 g/dl (32.0-37.0); MEAN CORPUSCULAR VOLUME 90.4 fl (82.0-101.0); MEAN PLATELET VOLUME 11.9 fl (7.4-10.4); MONOCYTE # 1.3 10^3/ul (0.3-0.9); NEUTROPHIL # 14.2 10^3/ul (1.6-7.5); PLATELET COUNT 499 10^3/UL (140-415); RED CELL DISTRIBUTION WIDTH 18.4 % (11.5-14.5); WHITE BLOOD COUNT 18.5 10^3/ul (4.8-10.8)
[2016-06-27 11:06] LABS: POTASSIUM 3.2 mmol/L (3.5-5.1)
[2016-06-27 11:09] LABS: CREATININE 1.03 mg/dl (0.44-1.00)
[2016-06-27 11:10] LABS: CALCIUM 9.5 mg/dl (8.4-10.2)
[2016-06-27] MEDS ORDERED: POTASSIUM CHLORIDE (SR) 20 MEQ TAB PO STA (11:16)
--- NOTE | 2016-06-27 11:19 | PDOCDIS ---
Discharge Instructions CONDITION Patient Condition: Stable HOME CARE INSTRUCTIONS: Special Diet: CARDIAC ACTIVITY: Activity Restrictions: Slowly Increase Activity FOLLOW UP/APPOINTMENTS Appointments Please take your medications as prescribed, and see your doctor in the clinic in 1 week. JABIER MOREAU Jun 27, 2016 11:19
[2016-06-27] MEDS ORDERED: AZIT250T6 PO (11:23)
[2016-06-27] MEDS ORDERED: METO-429 PO (11:23)
[2016-06-27] MEDS ORDERED: FURO40TA4 PO (11:23)
[2016-06-27] MEDS ORDERED: GUAI-637 PO (11:23)
[2016-06-27] MEDS ORDERED: BACTDS PO (11:23)
[2016-06-27] MEDS ORDERED: BENZ1LOZ4 MT (11:23)
--- NOTE | 2016-06-27 11:57 | DS ---
DATE OF ADMISSION: 06/23/2016 DATE OF DISCHARGE: 06/27/2016 A 76-year-old female originally admitted on 06/23/2016, being discharged home 06/27/2016. The patient came in with shortness of breath, dry cough and mild abdominal pain. She was admitted t o the telemetry floor. She has a history of atrial fibrillation. She was continued on Coumadin. S he was seen by the cardiology team and pulmonary team. Her shortness of breath was thought to be sec ondary to a combination of congestive heart failure exacerbation and possible bronchial pneumonia. She had an echocardiogram performed that showed an ejection fraction of 60%. There was severe enlar gement of the left atrium, severe enlargement of the right atrium. The mitral valve leaflets appear ed to be moderately thickened. There was some mild to moderate mitral valve regurg, moderate to sev ere mitral stenosis and thickened mitral valve leaflets appears, appearance consistent with rheumati c mitral valve disease. The patient did state she has a history of rheumatic fever in the past. Sh e also was found with moderate to severe aortic stenosis as well. In any event, she was given diure sis to help control her shortness of breath symptoms and CHF exacerbation. She was eventually able to have less shortness of breath, ambulate and tolerate a p.o. diet. She had a chest x-ray that did show findings of CHF, but also could not rule out bronchial pneumonia and the patient was placed on appropriate antibiotics for that. Her urine culture did show E. coli and mixed gram-positive organ isms growing, but they were less than 20,000 colony-forming units. In any event, she was placed on antibiotics for the upper respiratory infection and to treat any possible urine infection as well. Her white blood cell count was elevated on admission and it was trending down by the time of dischar . She had no fevers, she was able to ambulate, tolerate a p.o. diet and to her acute on chronic d iastolic heart failure symptoms improved. She will be discharged home today in improved condition. DISCHARGE MEDICATIONS: She will be sent with: 1. Azithromycin 250 mg p.o. daily for 5 more days. 2. Cepastat lozenges q.1h. p.r.n. 3. Lasix 40 mg p.o. daily. 4. Guaifenesin 200 mg p.o. q.4 p.r.n. 5. Metoprolol 50 mg p.o. b.i.d. 6. Bactrim double strength 1 tab p.o. b.i.d. for 5 days. 7. She will continue Diltiazem 240 mg daily. 8. Bystolic 10 mg daily. 9. Potassium chloride 8 mEq daily. 10. Warfarin 2.5 mg daily. 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 FINAL DIAGNOSES: 1. Shortness of breath secondary to a combination of acute on chronic diastolic heart failure and m ild bronchial pneumonia, now improving. 2. History of chronic atrial fibrillation. Stable on Coumadin. 3. History of rheumatic heart disease. 4. Moderate to severe aortic stenosis. 5. Moderate to severe mitral stenosis and moderate mitral regurgitation. 6. Essential hypertension. Time spent discharging the patient was 45 minutes. Dictated By: JABIER GOSS Conf#: [id number] DID#: [id number]
== END 2016-06-27 14:25 | disposition home or self-care (01) | DRG 871 ==
LOC: E/R 15:06 → TEL 18:01
PROVIDERS: ADMIT Hospitalist; ATTEND Hospitalist
DX: A41.9 Sepsis, unspecified organism (principal); I50.33 Acute on chronic diastolic (congestive) heart failure; J18.9 Pneumonia, unspecified organism; I11.0 Hypertensive heart disease with heart failure; I48.2 Chronic atrial fibrillation; I08.0 Rheumatic disorders of both mitral and aortic valves; K80.20 Calculus of gallbladder without cholecystitis without obstruction; Z79.01 Long term (current) use of anticoagulants
CPT/HCPCS: 36415; 71010; 76705; 80048; 80053; 80061; 80076; 81001; 81003; 82550; 82553; 83036; 83605; 83735; 83880; 84100; 84439; 84443; 84484; 85025; 85610; 85730; 87040; 87086; 92610; 93005; 93306; 94664; 96372; 96374; 96375; 97163; 97167; J1644; J1940; J2185; J2543; J3475

== ENCOUNTER 2016-07-13 18:24 | Inpatient (IN) | payer MEDICARE, OTHER ==
[~2016-07-13] VITALS: Ht 165.1 cm; Wt 79.5 kg
[~2016-07-13 18:24] MED LIST: AZIT250T6 PO; BACTDS PO; BENZ1LOZ4 MT; DILT240C98 PO; FURO40TA4 PO; GUAI-637 PO; METO-429 PO; NEBI10TA2 PO; POTA8CAP PO; WARF2.5T PO
[2016-07-13] MEDS ORDERED: SOD CHLORIDE 0.9% 500 ML IV STA (19:00)
[2016-07-13 19:30] LABS: ADD SCAN DIFF NO
[2016-07-13 19:32] LABS: ABNORMAL IP MESSAGE 1; HEMOGLOBIN 15.2 g/dl (12.0-16.0); MEAN CORPUSCULAR HEMOGLOBIN 27.4 pg (29.0-33.0); MEAN CORPUSCULAR HGB CONC 30.4 g/dl (32.0-37.0); MEAN CORPUSCULAR VOLUME 90.3 fl (82.0-101.0); MEAN PLATELET VOLUME 11.1 fl (7.4-10.4); RED BLOOD COUNT 5.54 10^6/ul (4.20-5.40); RED CELL DISTRIBUTION WIDTH 20.4 % (11.5-14.5)
[2016-07-13 19:49] LABS: PARTIAL THROMBOPLASTIN TIME 59.6 Sec (25.0-35.0)
[2016-07-13 19:51] LABS: ALBUMIN 3.8 g/dl (3.3-4.9); CHLORIDE 98 mmol/L (97-110); POTASSIUM 4.2 mmol/L (3.5-5.1); SODIUM 139 mmol/L (135-144)
[2016-07-13 19:54] LABS: ALANINE AMINOTRANSFERASE 20 IU/L (13-69); ALBUMIN/GLOBULIN RATIO 0.86; ALKALINE PHOSPHATASE 100 IU/L (42-121); ANION GAP 16 (8-16); ASPARTATE AMINO TRANSFERASE 40 IU/L (15-46); BILIRUBIN,INDIRECT 1.4 mg/dl (0-1.1); BILIRUBIN,TOTAL 1.4 mg/dl (0.2-1.3); BLOOD UREA NITROGEN 21 mg/dl (7-20); CALCIUM 10.4 mg/dl (8.4-10.2); CARBON DIOXIDE 29 mmol/L (21-31); CREATININE 1.13 mg/dl (0.44-1.00); GLUCOSE 133 mg/dl (70-220); TOTAL PROTEIN 8.2 g/dl (6.1-8.1)
[2016-07-13 20:06] LABS: PROTIME 77.1 Sec (12.2-14.2)
[2016-07-13 20:08] LABS: INR 9.24
--- NOTE | 2016-07-13 20:08 | RADRPT ---
PROCEDURE: XR Chest. CLINICAL INDICATION: Chest pain. TECHNIQUE: Single frontal view of the chest. COMPARISON: Chest dated 06/23/2016. FINDINGS: Prominent cardiomegaly with pulmonary vascular ingestion and patchy air space disease. cardiomegaly appears increased over interval. Increased heart size may reflect presence of pericardial effusion, new since 06/23/2016. Atherosclerotic calcifications in the thoracic aorta. Pleural effusions are new, left greater than right. Atelectasis at the left lung base. No signs of pneumothorax are seen. The osseous structures and soft tissues are unremarkable. IMPRESSION: 1. Heart size is increased over interval, perhaps representing manifestation of pericardial effusio n. 2. New moderate failure with bilateral pleural effusions, left greater than right. RPTAT: UU. Physician Dwayne Date Time Electronically viewed and signed by Physician Dwayne on 07/13/2016 20:08 RS/
[2016-07-13 20:09] LABS: TROPONIN-I < 0.012 ng/ml (0.00-0.12)
--- NOTE | 2016-07-13 20:11 | RADRPT ---
PROCEDURE: Right thigh ultrasound. CLINICAL INDICATION: Right thigh pain and swelling. Hematoma. The patient is on blood thinners. TECHNIQUE: Real time cabezas-scale and Doppler ultrasound imaging of the right minor region of abnorm ality was performed. COMPARISON: None. FINDINGS: 3.8 x 3.6 x 4.7 cm cystic subcutaneous mass within the region of pain in the right thigh with findin gs suggestive of layering of debris most compatible with hematoma. No associated blood flow. IMPRESSION: 4.7 cm complex subcutaneous cystic structure with layering debris in the region of pain and swelling right thigh most compatible with subcutaneous hematoma. Short-term follow-up ultrasound is recommen ded. RPTAT:AAJJ Physician Klarissa Date Time Electronically viewed and signed by Physician Klarissa on 07/13/2016 20:11 [place]/
[2016-07-13] MEDS ORDERED: CEFEPIME 2GM/50 ML (PMX) 50 ML IVPB STA (20:27)
[2016-07-13] MEDS ORDERED: VANCOMYCIN 1 GM (PMX) 250 ML IVPB ONE (20:30)
[2016-07-13 20:50] LABS: BASOPHIL # 0.3 10^3/ul (0.0-0.1); EOSINOPHILS # 0.3 10^3/ul (0.0-0.5); LYMPHOCYTES # 2.2 10^3/ul (0.8-2.9); MONOCYTE # 3.1 10^3/ul (0.3-0.9); NEUTROPHIL # 24.6 10^3/ul (1.6-7.5); PLATELET ESTIMATE PLT APPEAR INCREASED
[2016-07-13 21:00] VITALS: TEMP 97.9
--- NOTE | 2016-07-13 22:16 | ERA ---
ER Documentation Chief Complaint Date/Time DATE: 07/13/16 TIME: 22:11 Chief Complaint mult c/o--increased bruising on warfarin, increased altered loc HPI This is a 76-year-old female with a history of chronic atrial fibrillation on Coumadin as an anticoagulant. The patient states that she is admitted to the hospital recently at the beginning of June for CHF. She says that at home for a little over a week. She says 2 days ago she woke up and had a large bruise and swelling to her right distal thigh and 2 small ones in the left distal thigh. The patient states that she had no trauma and she did not have any falls. She also states for the past 2 days she has not been eating as much as usual and feels generally weak and dehydrated. Patient has a chronic cough is not any worse than before. She has occasional clear to white productive sputum. The patient's had no fever. No dysuria no vomiting abdominal pain or diarrhea. I reviewed the patient's medical records she had a leukocytosis of uncertain etiology was thought to possibly be due to an infiltrate on her chest x-ray that was a soft call. She is put on antibiotics and her white count decreased from the high 20s down to 18 at discharge. ROS All systems reviewed and are negative except as per history of present illness. Medications Home Meds Active Scripts Sulfamethoxazole-Trimethoprim* (Bactrim* DS) 800-160 Mg Tab, 1 TAB PO BID for 5 Days, #10 TAB Prov:JABIER MOREAU S. 06/27/16 Benzocaine/Menthol (SORE THROAT LOZENGE) 1 Each Lozenge, 1 LOZENGE MT Q1H Y for COUGH for 30 Days, LOZENGE Prov:JABIER MOREAU S. 06/27/16 Guaifenesin (Guaifenesin) 100 Mg/5 Ml Liquid, 200 MG PO Q4H Y for COUGH, #1 Prov:JABIER MOREAU S. 06/27/16 Furosemide* (Furosemide*) 40 Mg Tablet, 40 MG PO DAILY for 30 Days, #30 TAB 2 Refills Prov:JABIER MOREAU S. 06/27/16 Metoprolol Tartrate* (Lopressor*) 50 Mg Tab, 50 MG PO BID for 30 Days, #60 TAB 2 Refills Prov:JABIER MOREAU S. 06/27/16 Azithromycin* (Azithromycin*) 250 Mg Tablet, 250 MG PO DAILY for 5 Days, TAB Prov:JABIER MOREAU S. 06/27/16 Reported Medications Nebivolol Hcl* (Bystolic*) 10 Mg Tablet, 10 MG PO DAILY, #30 TAB 06/23/16 Diltiazem Hcl* (Diltiazem XT) 240 Mg Capsule.er, 240 MG PO DAILY, #30 CAP 06/23/16 Warfarin Sodium* (Coumadin*) 2.5 Mg Tablet, 2.5 MG PO DAILY, TAB 06/23/16 Potassium Chloride* (Potassium Chloride*) 8 Meq Capsule.er, 8 MEQ PO DAILY, CAP 06/23/16 Allergies Allergies: Coded Allergies: No Known Allergy (Unverified , 06/27/16) PMhx/Soc History of Surgery: No Anesthesia Reaction: No Hx Neurological Disorder: Yes Hx Respiratory Disorders: No Hx Cardiac Disorders: Yes (faulty valves) Hx Psychiatric Problems: No Hx Miscellaneous Medical Probl: Yes (HTN, afib) Hx Alcohol Use: No Hx Substance Use: No Hx Tobacco Use: No Smoking Status: Never smoker FmHx Family History: No coronary disease Physical Exam Vitals Vital Signs Date Time Temp Pulse Resp B/P Pulse Ox O2 Delivery O2 Flow Rate FiO2 07/13/16 21:00 97.9 88 20 138/78 98 Nasal Cannula 2.0 07/13/16 18:32 97.9 90 20 126/65 93 Physical Exam Const: Well-developed, well-nourished Head: Atraumatic, normocephalic Eyes: Normal Conjunctiva, PERRLA, EOMI, normal sclera, no nystagmus ENT: Normal External Ears, Nose and Mouth, dry mucus membranes. Neck: Full range of motion. No meningismus, no lymphadenopathy. Resp: No increased work of breathing, diffuse mild crackles Cardio: Regular rate and rhythm, no murmurs, S1 S2 present Abd: Soft, non tender x 4, non distended. Normal bowel sounds, no guarding or rebound, no pulsitile abdominal masses or bruits Skin: No petechiae or rashes, no ecchymosis , no maculopapular rash Back: No midline or flank tenderness Ext: No cyanosis, or edema, FROM x 4, normal inspection, neurovascularly intact x 4, there is a 4 x 4 inch right distal thigh bruise with tender hematoma, the left has 2 smaller ones on the same side of the leg Neur: Awake and alert, STR 5/5 x 4, sensation intact x 4, no focal findings, cerebellum intact Psych: Normal Mood and Affect Result Diagram: 07/13/16190407/13/161904 Results 24 hrs Laboratory Tests Test 07/13/16 19:05 White Blood Count 30.810^3/ul Red Blood Count 5.5410^6/ul Hemoglobin 15.2g/dl Hematocrit 50.0% Mean Corpuscular Volume 90.3fl Mean Corpuscular Hemoglobin 27.4pg Mean Corpuscular Hemoglobin Concent 30.4g/dl Red Cell Distribution Width 20.4% Platelet Count 60539^3/UL Mean Platelet Volume 11.1fl Neutrophils % 80.0% Band Neutrophils % 1.0% Lymphocytes % 7.0% Monocytes % 10.0% Eosinophils % 1.0% Basophils % 1.0% Nucleated Red Blood Cells % 1.0/100WBC Neutrophils # 24.610^3/ul Lymphocytes # 2.210^3/ul Monocytes # 3.110^3/ul Eosinophils # 0.310^3/ul Basophils # 0.310^3/ul Platelet Estimate PLT APPEAR INCREASED Large Platelets 1+ Prothrombin Time 77.1Sec Prothrombin Time Ratio 6.0 INR International Normalized Ratio 9.24 Activated Partial Thromboplast Time 59.6Sec Sodium Level 139mmol/L Potassium Level 4.2mmol/L Chloride Level 98mmol/L Carbon Dioxide Level 29mmol/L Anion Gap 16 Blood Urea Nitrogen 21mg/dl Creatinine 1.13mg/dl Glucose Level 133mg/dl Calcium Level 10.4mg/dl Total Bilirubin 1.4mg/dl Direct Bilirubin 0.00mg/dl Indirect Bilirubin 1.4mg/dl Aspartate Amino Transf (AST/SGOT) 40IU/L Alanine Aminotransferase (ALT/SGPT) 20IU/L Alkaline Phosphatase 100IU/L Troponin I < 0.012ng/ml Total Protein 8.2g/dl Albumin 3.8g/dl Globulin 4.40g/dl Albumin/Globulin Ratio 0.86 Current Medications Medications (Trade) Dose Ordered Sig/Amanda Route PRN Reason Start Time Stop Time Status Last Admin Dose Admin Sodium Chloride 500 ml @ 500 mls/hr Q1H STAT IV 07/13/16 19:00 07/13/16 19:59 DC 07/13/16 19:20 Cefepime HCl 50 ml @ 100 mls/hr ONCE STAT IVPB 07/13/16 20:27 07/13/16 20:56 DC 07/13/16 20:57 Vancomycin HCl (Vancocin) 250 ml @ 125 mls/hr ONCE ONCE IVPB 07/13/16 20:30 07/13/16 22:29 07/13/16 21:48 Ondansetron HCl (Zofran Inj) 4 mg ER BRIDGE PRN IV NAUSEA AND/OR VOMITING 07/13/16 22:30 07/14/16 22:29 Acetaminophen (Tylenol Tab) 650 mg ER BRIDGE PRN PO MILD PAIN/FEVER 07/13/16 22:30 07/14/16 22:29 Procedures/MDM PROCEDURE: XR Chest. CLINICAL INDICATION: Chest pain. TECHNIQUE: Single frontal view of the chest. COMPARISON: Chest dated 06/23/2016. FINDINGS: Prominent cardiomegaly with pulmonary vascular ingestion and patchy air space disease. cardiomegaly appears increased over interval. Increased heart size may reflect presence of pericardial effusion, new since 06/23/2016. Atherosclerotic calcifications in the thoracic aorta. Pleural effusions are new, left greater than right. Atelectasis at the left lung base. No signs of pneumothorax are seen. The osseous structures and soft tissues are unremarkable. IMPRESSION: 1. Heart size is increased over interval, perhaps representing manifestation of pericardial effusion. 2. New moderate failure with bilateral pleural effusions, left greater than right. RPTAT: UU. Physician Dwayne Date Time Electronically viewed and signed by Physician Dwayne on 07/13/2016 20:08 RS/ CC: KARINE FAJARDO DO PROCEDURE: Right thigh ultrasound. CLINICAL INDICATION: Right thigh pain and swelling. Hematoma. The patient is on blood thinners. TECHNIQUE: Real time cabezas-scale and Doppler ultrasound imaging of the right minor region of abnormality was performed. COMPARISON: None. FINDINGS: 3.8 x 3.6 x 4.7 cm cystic subcutaneous mass within the region of pain in the right thigh with findings suggestive of layering of debris most compatible with hematoma. No associated blood flow. IMPRESSION: 4.7 cm complex subcutaneous cystic structure with layering debris in the region of pain and swelling right thigh most compatible with subcutaneous hematoma. Short-term follow-up ultrasound is recommended. RPTAT:AAJJ Petrona Wagner Physician Date Time Electronically viewed and signed by Petrona Wagner Physician on 07/13/2016 20:11 [place]/ CC: KARINE FAJARDO DO Patient blood cultures and was given antibiotics. We will admit for leukocytosis, high INR Spoke with Dr. heaton She does have elevated white blood count of uncertain etiology. Should the same findings before. This may be from some pulmonary etiology but she does not meet sepsis criteria does not appear septic therefore no lactate is been ordered Departure Diagnosis: Primary Impression: Leukocytosis Qualified Code: D72.829 - Leukocytosis, unspecified type Additional Impressions: Coagulopathy CHF (congestive heart failure) Qualified Code: I50.9 - Congestive heart failure, unspecified congestive heart failure chronicity, unspecified congestive heart failure type Condition: Stable KARINE FAJARDO DO Jul 13, 2016 22:16
[2016-07-13] MEDS ORDERED: ONDANSETRON 4 MG INJ IV PRN (22:30)
[2016-07-13] MEDS ORDERED: ACETAMINOPHEN 325 MG TAB PO PRN (22:30)
[2016-07-13] MEDS ORDERED: PHYTONADIONE 10 MG/ML INJ IM ONE (22:30)
[2016-07-13 23:26] VITALS: Ht 165.1 cm; Wt 79.5 kg
[2016-07-13 23:50] VITALS: BP 138/64; RESP 19
[2016-07-14] VITALS (12 sets, daily range): BP systolic 104–148; BP diastolic 54–72; PULSE 82–96; RESP 16–19
[2016-07-14] MEDS ORDERED: ONDANSETRON 4 MG INJ IV PRN (00:30)
[2016-07-14] MEDS ORDERED: GUAIFENESIN 20 MG/ML 5ML CUP PO PRN (00:30)
[2016-07-14] MEDS ORDERED: LEVOFLOXACIN 500MG/D5W (PMX) 100 ML IVPB SCH (00:30)
[2016-07-14] MEDS ORDERED: CEPASTAT LOZENGE MT PRN (00:30)
[2016-07-14] MEDS ORDERED: morphine 10 MG INJ IM PRN (00:30)
[2016-07-14] MEDS: FUROSEMIDE 40 MG TAB PO SCH (05:48)
[2016-07-14 06:23] LABS: ADD SCAN DIFF NO
[2016-07-14 06:31] LABS: ABNORMAL IP MESSAGE 1; HEMOGLOBIN 12.7 g/dl (12.0-16.0); MEAN CORPUSCULAR HEMOGLOBIN 27.5 pg (29.0-33.0); MEAN CORPUSCULAR HGB CONC 30.2 g/dl (32.0-37.0); MEAN CORPUSCULAR VOLUME 90.9 fl (82.0-101.0); MEAN PLATELET VOLUME 11.1 fl (7.4-10.4); PLATELET COUNT 750 10^3/UL (140-415); RED BLOOD COUNT 4.62 10^6/ul (4.20-5.40); RED CELL DISTRIBUTION WIDTH 20.3 % (11.5-14.5); WHITE BLOOD COUNT 27.6 10^3/ul (4.8-10.8)
[2016-07-14 06:45] LABS: ALBUMIN 2.9 g/dl (3.3-4.9)
[2016-07-14 06:46] LABS: POTASSIUM 3.6 mmol/L (3.5-5.1)
[2016-07-14 06:47] LABS: CREATININE 1.02 mg/dl (0.44-1.00)
[2016-07-14 06:48] LABS: ALBUMIN/GLOBULIN RATIO 0.82; BILIRUBIN,INDIRECT 1.2 mg/dl (0-1.1); BILIRUBIN,TOTAL 1.2 mg/dl (0.2-1.3); CALCIUM 9.5 mg/dl (8.4-10.2); MAGNESIUM 1.9 mg/dl (1.7-2.5); PHOSPHORUS 3.2 mg/dl (2.5-4.9); TOTAL PROTEIN 6.4 g/dl (6.1-8.1)
[2016-07-14] MEDS ORDERED: VANCOMYCIN IV PER PHARMACY XX SCH (08:30)
[2016-07-14] MEDS: POTASSIUM CHLORIDE (SR) 8 MEQ CAP PO SCH (08:33)
[2016-07-14] MEDS: DILTIAZEM (CD) 240 MG CAP PO SCH (08:34)
[2016-07-14] MEDS: METOPROLOL 50 MG TAB PO SCH ×2 (08:35→21:15)
--- NOTE | 2016-07-14 09:03 | HP ---
DATE OF ADMISSION: 07/13/2016 CHIEF COMPLAINT: Bruising and swelling in both thighs. HISTORY OF PRESENT ILLNESS: The patient is a 76-year-old female with a history of atrial fibrillati on; rheumatic heart disease; moderate to severe aortic stenosis; moderate to severe mitral stenosis and regurgitation; hypertension, who presented to the emergency department complaining of bruising a nd swelling on both of her thighs. She stated she noticed 2 days ago that the one on the right side is much larger than the bruising on the left thigh. She was recently admitted here to this [facility] for shortness of breath, cough, and abdominal pain, was discharged 2 weeks ago. At that time, ech ocardiogram showed moderate to severe aortic stenosis as well as moderate to severe mitral stenosis and mitral regurgitation, severely enlarged left and right atrium with moderate to severe tricuspid regurgitation. EF was found to be 60%. It was it was felt at that time that her symptoms of shortn ess of breath was secondary to her cardiac findings as well as probable bronchial pneumonia. She w as managed in consultation with cardiology and pulmonary, and was discharged on Lasix, Bactrim, and Zithromax as well as her cardiac medication and her Coumadin as well. The patient complains of gene ralized weakness over the past 2 days and decreased p.o. intake, and stated that her cough, which oc casionally produces white sputum, has persisted since the last discharge. As far as her bruising on her thighs are concerned, the patient denied any trauma and she has been noncompliant with her Coum sirisha. When she presented to the ER her vitals were stable. Laboratory values shows a WBC of 31,000, platelet count 982,000, hematocrit 50, creatinine 1.13, and an INR of 9.2. Ultrasound of the right thigh was done which showed a 4.7 cm complex subcutaneous c ystic structure with layering debris in the region of pain and swelling on the right thigh, most com patible with subcutaneous hematoma. Chest x-ray shows heart size is increased since the chest x-ray about 3 weeks ago, perhaps represent ing a manifestation of pericardial effusion. Also noted was a new moderate failure with bilateral p leural effusion, left greater than right. Patient was started on vancomycin and cefepime and also w as given 500 mL of NS bolus while she was in the ER. REVIEW OF SYSTEMS: A 12-point review of systems was performed and is negative, except as mentioned in HPI. PAST MEDICAL HISTORY: As per HPI. PAST SURGICAL HISTORY: Denies. SOCIAL HISTORY: Denied a history of tobacco, alcohol, or illicit drug use. ALLERGIES: NO KNOWN DRUG ALLERGIES. HOME MEDICATION: 1. Coumadin. 2. Diltiazem. 3. Lopressor. 4. Bystolic. 5. Lasix. 6. Potassium. 7. Guaifenesin. 8. Benzocaine/menthol. PHYSICAL EXAMINATION: VITAL SIGNS: Stable. GENERAL: The patient lying in bed, no acute distress. HEENT: No obvious head deformity. Pupils are reactive to light. Extraocular muscles intact. CARDIOVASCULAR: Regular rate and rhythm with no extra sounds. LUNGS: Clear. ABDOMEN: Soft. There is some discomfort that was noted to deep palpation diffusely with no guardin g or rebound tenderness, no rigidity. EXTREMITIES: There is bruising and swelling/hematoma on the right distal thigh, which is tender to touch. Also, on the left distal thigh there are similar findings, there are 2 bruising and hematoma s, but more on the right. LABORATORY: Pertinent positives results as mentioned in the HPI. IMAGING: Right thigh ultrasound and chest x-ray with results as mentioned in the HPI. IMPRESSION: 1. Bilateral distal thigh hematoma, secondary to a supratherapeutic INR (9.24). 2. Shortness of breath, most likely cardiac in etiology 3. Moderate to severe aortic stenosis 4. Moderate to severe mitral stenosis. 5. Moderate to severe tricuspid regurgitation. 6. History of rheumatic heart disease. 7. History of hypertension. 8. Sepsis, as evidenced by leukocytosis and tachycardia, likely secondary to a combination of pneum onia and urinary tract infection. PLAN: Patient will continue to monitor here on the telemetry unit. She will receive vitamin K. We will repeat her INR and monitor her hematoma closely. We will obtain additional imaging based on h er clinical course. Obviously, her Coumadin will be held. She will be continued with her home medi cation, including her Lasix for diuresis. We will reconsult cardiology, given the worsening nature of the chest x-ray findings. She will be placed on antibiotic, given presentation of sepsis, which could be from probable UTI, given the finding of E. coli in her urine during the previous hospitaliz ation, or it could be from possible underlying pneumonia or URI. In any case, she will continue ant ibiotic and follow up on the culture results. Further workup and management per clinical course. Dictated By: CATRACHITA TRIPP/CONY Conf#: [id number] DID#: [id number]
[2016-07-14 09:23] LABS: INR 5.69; PROTIME 52.5 Sec (12.2-14.2); PT RATIO 4.1
[2016-07-14 09:27] LABS: LYMPHOCYTES # 0.8 10^3/ul (0.8-2.9); MONOCYTE # 1.1 10^3/ul (0.3-0.9); NEUTROPHIL # 24.3 10^3/ul (1.6-7.5)
[2016-07-14 09:28] LABS: PLATELET ESTIMATE PLT APPEAR INCREASED
[2016-07-14] MEDS: CEFEPIME 1GM/50 ML (PMX) 50 ML IVPB SCH ×2 (10:01→21:14)
[2016-07-14] MEDS: VANCOMYCIN 1.25 GM in SOD CHLORIDE 0.9% 250 ML IVPB SCH (10:31)
--- NOTE | 2016-07-14 10:38 | CONS ---
Date/Time of Note Date/Time of Note DATE: 07/14/16 TIME: 10:32 Assessment/Plan Assessment/Plan Chief Complaint/Hosp Course Large right thigh hematoma: In setting of supertherapeutic INR. Pt denies trauma. Coagulopathy: INR high due to coumadin Chronic diastolic/valvular heart failure: appears compensated by exam Rheumatic heart disease: plan for double valve surgery as outpt Severe MS Moderate MR Mod-Severe Chronic afib: rates controlled. On coumadin -continue diltiazem and MTP -hold coumadin until INR back to therapeutic range, goal 2-3 -continue lasix 40mg PO daily to keep even Problems: Consultation Date/Type/Reason Admit Date/Time Jul 13, 2016 at 22:10 Date of Consultation: Jul 14, 2016 Type of Consultation: Cardiology Reason for Consultation afib Referring Provider: LESA WHYTE NP Hx of Present Illness 76 yo F with a h/o rheumatic heart disease with severe MS/mod MR, mod-severe , chronic afib, diastolic/valvular heart failure, who presented with right tigh swelling/pain and was found to have a large hematoma with supertherapeutic INR of 9. The pt notes that she has been compliant with her coumadin and she has not taken any extra doses. She also denies trauma to her thigh. Her breathing has been stable since discharge. She denies orthopnea, PND, edema. She does have exertional dyspnea. She uses a walker. per HPI Past Medical History per HPI Social History Smoking Status: Never smoker Exam/Review of Systems Vital Signs Vitals Vital Signs Date Time Temp Pulse Resp B/P Pulse Ox O2 Delivery O2 Flow Rate FiO2 07/14/16 08:00 96 07/14/16 07:46 97.9 16 117/55 96 07/13/16 22:30 Nasal Cannula 2.0 Intake and Output 07/13/16 07/13/16 07/14/16 15:00 23:00 07:00 Intake Total 550 ml Output Total 2 ml Balance 548 ml Exam Constitutional: alert, oriented Psych: no complaints Head: atraumatic, normocephalic Neck: No jvd Respiratory: No clear to auscultation (mild cracklles ) Cardiovascular: No edema, No regular rate and rhythm (IRIR) Gastrointestinal: non-tender, soft Musculoskeletal: other (right thigh large hematoma ) Neurological: nl mental status, nl speech Results Result Diagram: 07/14/16 0606 07/14/16 0606 Results 24 hrs Laboratory Tests Test 07/13/16 19:05 07/14/16 06:06 07/14/16 08:30 White Blood Count 30.8 #H 27.6 H Red Blood Count 5.54 H 4.62 Hemoglobin 15.2 12.7 Hematocrit 50.0 H 42.0 Mean Corpuscular Volume 90.3 90.9 Mean Corpuscular Hemoglobin 27.4 L 27.5 L Mean Corpuscular Hemoglobin Concent 30.4 L 30.2 L Red Cell Distribution Width 20.4 H 20.3 H Platelet Count 982 #H 750 #H Mean Platelet Volume 11.1 H 11.1 H Neutrophils % 80.0 H 88.0 H Band Neutrophils % 1.0 5.0 Lymphocytes % 7.0 L 3.0 L Monocytes % 10.0 4.0 Eosinophils % 1.0 Basophils % 1.0 Nucleated Red Blood Cells % 1.0 H Neutrophils # 24.6 H 24.3 H Lymphocytes # 2.2 0.8 Monocytes # 3.1 H 1.1 H Eosinophils # 0.3 Basophils # 0.3 H Platelet Estimate PLT APPEAR INCREASED PLT APPEAR INCREASED Large Platelets 1+ Prothrombin Time 77.1 #H 52.5 #H Prothrombin Time Ratio 6.0 4.1 INR International Normalized Ratio 9.24 *H 5.69 Activated Partial Thromboplast Time 59.6 H Sodium Level 139 140 Potassium Level 4.2 3.6 Chloride Level 98 105 Carbon Dioxide Level 29 27 Anion Gap 16 12 Blood Urea Nitrogen 21 H 20 Creatinine 1.13 H 1.02 H Glucose Level 133 98 Calcium Level 10.4 H 9.5 Total Bilirubin 1.4 H 1.2 Direct Bilirubin 0.00 0.00 Indirect Bilirubin 1.4 H 1.2 H Aspartate Amino Transf (AST/SGOT) 40 26 Alanine Aminotransferase (ALT/SGPT) 20 23 Alkaline Phosphatase 100 73 Troponin I < 0.012 Total Protein 8.2 H 6.4 # Albumin 3.8 2.9 L Globulin 4.40 H 3.50 H Albumin/Globulin Ratio 0.86 0.82 Phosphorus Level 3.2 Magnesium Level 1.9 Medications Medications Current Medications Phenol (Cepastat Lozenge) 1 lozenge Q1H PRN MT COUGH; Start 07/14/16 at 00:30 Diltiazem HCl (Cardizem Cd) 240 mg DAILY PO Last administered on 07/14/16 08: 34; Admin Dose 240 MG; Start 07/14/16 at 09:00 Furosemide (Lasix) 40 mg DAILY@06 PO Last administered on 07/14/16 05:48; Admin Dose 40 MG; Start 07/14/16 at 06:00 Guaifenesin (Robitussin Liquid Cup) 200 mg Q4H PRN PO COUGH; Start 07/14/16 at 00:30 Metoprolol Tartrate (Lopressor) 50 mg BID PO Last administered on 07/14/16 08: 35; Admin Dose 50 MG; Start 07/14/16 at 09:00 Potassium Chloride (Micro-K) 8 meq DAILY PO Last administered on 07/14/16 08: 33; Admin Dose 8 MEQ; Start 07/14/16 at 09:00 Morphine Sulfate (morphine) 2 mg Q4H PRN IM PAIN; Start 07/14/16 at 00:30 Acetaminophen (Tylenol Tab) 650 mg Q6H PRN PO PAIN AND OR ELEVATED TEMP; Start 07/14/16 at 00:30 Ondansetron HCl 4 mg 4 mg Q6H PRN IV NAUSEA AND/OR VOMITING; Start 07/14/16 at 00:30 Cefepime HCl 50 ml @ 100 mls/hr Q12 IVPB Last administered on 07/14/16 10:01 ; Admin Dose 100 MLS/HR; Start 07/14/16 at 09:00 Vancomycin HCl/ Sodium Chloride (Vancocin/NS) 250 ml @ 83.333 mls/ hr Q24H IVPB ; Start 07/14/16 at 10:00 GLADIS PIERRE Jul 14, 2016 10:38
--- NOTE | 2016-07-14 13:23 | PN ---
DATE: 07/14/2016 HOSPITALIST PROGRESS NOTE TIME OF EVALUATION: 11 a.m. SUBJECTIVE DATA: Complains of bilateral thigh pain. Complains of minimal dyspnea. Denies any chest pain. OBJECTIVE DATA: VITAL SIGNS: Temperature 97.8, pulse rate 84, respiratory rate 16, blood pressure 104/52, oxygen saturation 93% on room air. GENERAL: This is a 76-year-old female sitting in bed in no apparent distress. HEENT: Head normocephalic and atraumatic. Eyes: Anicteric sclerae. Conjunctivae clear. ENT: Nasal septum is midline. Oral mucosa is dry. NECK: Supple. No JVD noticed. RESPIRATORY: Bilaterally diminished breath sounds. Bilateral fine rales heard. Minimal use of accessory muscles of respiration. CARDIAC: Irregularly irregular rhythm. Grade II/ systolic ejection murmur. ABDOMEN: Soft, nontender and nondistended. Bowel sounds are hypoactive in all 4 quadrants. GENITOURINARY: Deferred. EXTREMITIES: Large right thigh and slightly small left thigh hematoma with tenderness to touch. Bilateral lower extremity. Pedal pulses palpable. NEUROLOGIC: The patient is awake, alert, and oriented. Cranial nerves are grossly intact. LABORATORY AND DIAGNOSTIC DATA: WBC 27.6, hemoglobin 12.7, hematocrit 42.0, platelet count 750. Sodium 140, potassium 3.6, chloride 105, carbon dioxide 27 , anion gap 12, BUN 20, creatinine 1.02, glucose 90, calcium 9.5, phosphorus 3.2. PT 52.5, INR 5.69. ASSESSMENT AND PLAN: 1. Bilateral thigh hematoma secondary to supratherapeutic INR. Ultrasound of the right thigh showing 3.8 x 3.6 x 4.7 cm cystic subcutaneous mass. Continue to hold Coumadin. Will order a left thigh soft tissue ultrasound. 2. Coagulaopathy with supratherapeutic INR. Continue to hold Coumadin. Status post single dose of phytonadione. 3. Chronic atrial fibrillation. Rate controlled. The patient already anticoagulated. 4. Moderate to severe mitral valve stenosis and moderate to severe aortic stenosis secondary to rheumatic heart disease. Continue anticoagulation. Continue to optimize cardiac medications. 5. Acute on chronic congestive heart failure exacerbation. Diastolic dysfunction. Continue Lasix. Continue supplemental oxygen as needed. 6. Pulmonary hypertension. PA systolic pressure of 55 mmHg. Most probably secondary to underlying valvular heart disease. Monitor. 7. Leukocytosis. Etiology unclear. The patient was also noticed to have a high Platelet count. However, the patient's hemoglobin and hematocrit are within normal limits. It is unclear whether the patient has some kind of myeloproliferative disease. The patient is on empiric antibiotics. Mars cultures have been ordered. We will obtain an infectious disease consult for further recommendations. 8. Acute kidney injury. Improving. Continue to monitor the BUN and creatinine closely. Will use nephrotoxic drugs with caution. 9. Essential hypertension. Continue antihypertensives. 10. Fluid, electrolytes and nutrition. Low cholesterol diet. 11. DVT prophylaxis. The patient already anticoagulated. 12. Gastrointestinal prophylaxis. Histamine 2 receptor blockers. 13. Plan. Continue to hold anticoagulation. Obtain soft tissue ultrasound of the left thigh. Await mars cultures. Case discussed with Dr. Moyer. LESA MOYER MD, AM/CONY Conf#: [id number] DID#: [id number] MTDD
--- NOTE | 2016-07-14 15:05 | RADRPT ---
PROCEDURE: Ultrasound of the left thigh. CLINICAL INDICATION: Palpable lesion in the left thigh. TECHNIQUE: High-resolution sonography of the left thigh at the site of the palpable lesion was per formed in the axial and sagittal planes. COMPARISON: None FINDINGS: At the site of the palpable lesion, there is a subcutaneous hypoechoic mass measuring 1.0 x 2.0 x 2. 2 cm. There is no other abnormality at the site of the palpable lesion. IMPRESSION: 1. Subcutaneous hypoechoic mass measuring 1.0 x 2.0 x 2.2 cm at the site of the palpable lesion in the left thigh. This may be due to hematoma or solid mass. Follow-up ultrasound in 4-6 weeks shoul d be considered. 2. Any further management regarding the palpable lesion should be based on clinical grounds. RPTAT: QQ .Bryan Raymundo MD, MD Date Time Electronically viewed and signed by .Bryan Raymundo MD, MD on 07/14/2016 15:05 .R/
[2016-07-14 15:44] LABS: WHITE BLOOD COUNT 30.8 10^3/ul (4.8-10.8)
[2016-07-14 15:46] LABS: PLATELET COUNT 982 10^3/UL (140-415)
--- NOTE | 2016-07-14 19:52 | CONS ---
DATE OF ADMISSION: 07/13/2016 DATE OF CONSULTATION: 07/14/2016 TYPE OF CONSULTATION: Infectious disease. REASON FOR CONSULTATION: Antibiotic management. HISTORY OF PRESENT ILLNESS: Sosa Palmer is a 76-year-old female who comes in with bruising and sw elling of both thighs. Her past problems include: 1. Rheumatic heart disease with moderate to severe aortic stenosis, moderate to severe mitral steno sis and regurgitation. 2. Atrial fibrillation. 3. Hypertension. Acutely she comes in complaining of bruising and swelling of both of her thighs. She noticed this 2 days prior to admission with it being much worse on the right than the left. She was admitted with shortness of breath, cough, abdominal pain, and discharged 2 weeks ago. Her 2D echo showed at that time, moderate to severe aortic stenosis, moderate to severe mitral stenosis and mitral regurgitati on, severely enlarged left and right atrium with moderate to severe tricuspid regurgitation. Her ej ection fraction was 60%. She was discharged on Lasix, Bactrim and azithromycin as well as Coumadin. She has also had increasing cough with sputum production. On admission, as noted, her white count was 30,800, H and H of 15.2 and 50, platelet count 982,000. Today, white count 27.6. BUN and creatinine is 21/1.13, calcium 10.4. Liver function tests are wi thin normal limits. An extremity ultrasound showed 3.8 x 3.6 x 4.7. Complex subcutaneous cystic str ucture with layering debris in the region of pain and swelling of the right thigh, most compatible w ith subcutaneous emphysema. Short term followup ultrasound is recommended. She had a soft tissue u ltrasound which showed subcutaneous hypoechoic mass measuring 1 x 2 x 2.2 cm at the site of the palp able lesion palpable lesions on left thigh. This may be due to the hematoma or solid mass. Follow up ultrasound in 4 to 6 weeks should be considered. PAST MEDICAL HISTORY: Operations as outlined. FAMILY HISTORY: Noncontributory. SOCIAL HISTORY: She does not smoke, drink or abuse drugs. ALLERGIES: NONE TO PENICILLIN, SULFA OR FOODS. MEDICATIONS: Per chart. REVIEW OF SYSTEMS: As per HPI. PHYSICAL EXAMINATION: GENERAL: The patient is a well-developed, well-nourished female who is alert, responsive, in no acu te distress. VITAL SIGNS: Stable. She is afebrile. SKIN: Without generalized rash. There is bruising and swelling of the right distal thigh and the l eft distal thigh. HEENT: Within normal limits. NECK: Supple. LYMPH NODES: None palpable. CHEST: Decreased breath sounds at the bases. HEART: Without murmur or gallop. ABDOMEN: Soft, nontender, without organosplenomegaly or masses. EXTREMITIES: Without cyanosis, clubbing, or edema. RECTAL/GENITAL: Exam is deferred. NEUROLOGICAL: No focal neurological abnormality. IMPRESSION AND PLAN: The patient has bilateral distal thigh hematomas secondary to supratherapeutic INR. She has multiple problems related to her heart. She has leukocytosis and a high platelet cou nt. She may have some kind of myeloproliferative disease. She was placed on empiric antibiotic ther apy in the form of vancomycin and cefepime, but if no cultures are positive, we will stop the antibi otic therapy. Blood and urine are pending. I will dictate my findings to the hospitalist. Dictated By: DARLEEN ELLINGTON MD, JD/CONY Conf#: [id number] DID#: [id number]
[2016-07-14] MEDS: FAMOTIDINE 20 MG TAB PO SCH (21:14)
[2016-07-15] VITALS (13 sets, daily range): BP systolic 100–141; BP diastolic 56–69; PULSE 80–92; RESP 17–18
[2016-07-15 05:42] LABS: ADD SCAN DIFF NO
[2016-07-15 06:10] LABS: CREATININE 1.06 mg/dl (0.44-1.00); PHOSPHORUS 3.1 mg/dl (2.5-4.9)
[2016-07-15] MEDS: FUROSEMIDE 40 MG TAB PO SCH (06:16)
[2016-07-15 06:26] LABS: INR 1.88; PROTIME 21.8 Sec (12.2-14.2); PT RATIO 1.7
[2016-07-15 06:29] LABS: ABNORMAL IP MESSAGE 1; HEMOGLOBIN 11.9 g/dl (12.0-16.0); MEAN CORPUSCULAR HEMOGLOBIN 27.9 pg (29.0-33.0); MEAN CORPUSCULAR HGB CONC 30.5 g/dl (32.0-37.0); MEAN CORPUSCULAR VOLUME 91.3 fl (82.0-101.0); MEAN PLATELET VOLUME 11.5 fl (7.4-10.4); PLATELET COUNT 758 10^3/UL (140-415); RED BLOOD COUNT 4.27 10^6/ul (4.20-5.40); RED CELL DISTRIBUTION WIDTH 20.6 % (11.5-14.5); WHITE BLOOD COUNT 31.6 10^3/ul (4.8-10.8)
[2016-07-15] MEDS: POTASSIUM CHLORIDE (SR) 8 MEQ CAP PO SCH (08:19)
[2016-07-15] MEDS: FAMOTIDINE 20 MG TAB PO SCH ×2 (08:19→20:50)
[2016-07-15] MEDS: METOPROLOL 50 MG TAB PO SCH ×2 (08:20→20:51)
[2016-07-15] MEDS: DILTIAZEM (CD) 240 MG CAP PO SCH (08:20)
[2016-07-15] MEDS: CEFEPIME 1GM/50 ML (PMX) 50 ML IVPB SCH (08:22)
--- NOTE | 2016-07-15 09:36 | CONS ---
Date/Time of Note Date/Time of Note DATE: 07/15/16 TIME: 09:32 Assessment/Plan Assessment/Plan Chief Complaint/Hosp Course Large right thigh hematoma: In setting of supertherapeutic INR. Pt denies trauma. INR now <2. Coagulopathy: INR high due to coumadin. Now improved Chronic diastolic/valvular heart failure: appears compensated by exam Rheumatic heart disease: plan for double valve surgery as outpt Severe MS Moderate MR Mod-Severe Chronic afib: rates controlled. On coumadin -continue diltiazem and MTP -continue lasix 40mg PO daily to keep even -in terms of anticoagulation, can consider holding coumadin for now and restarting at a lower dose 1-2 weeks as outpt when hematoma improves -ok for d/c from my perspective -will follow as needed Problems: Consultation Date/Type/Reason Admit Date/Time Jul 13, 2016 at 22:10 Initial Consult Date 07/14/16 Type of Consultation: Cardiology Referring Provider: ELSA WHYTE NP 24 HR Interval Summary Free Text/Dictation No o/n events. INR below range now. Exam/Review of Systems Vital Signs Vitals Vital Signs Date Time Temp Pulse Resp B/P Pulse Ox O2 Delivery O2 Flow Rate FiO2 07/15/16 08:00 91 07/15/16 07:56 97.5 18 135/62 92 07/13/16 22:30 Nasal Cannula 2.0 Intake and Output 07/14/16 07/14/16 07/15/16 15:00 23:00 07:00 Intake Total 400 ml Balance 400 ml Exam Constitutional: alert, oriented Psych: no complaints Head: normocephalic Neck: No jvd Respiratory: clear to auscultation Cardiovascular: No edema, No regular rate and rhythm (IRIR) Gastrointestinal: non-tender, soft Musculoskeletal: other (right thigh hematoma ) Results Result Diagram: 07/15/16 0515 07/15/16 0515 Results 24 hrs Laboratory Tests Test 07/15/16 05:15 White Blood Count 31.6 H Red Blood Count 4.27 Hemoglobin 11.9 L Hematocrit 39.0 Mean Corpuscular Volume 91.3 Mean Corpuscular Hemoglobin 27.9 L Mean Corpuscular Hemoglobin Concent 30.5 L Red Cell Distribution Width 20.6 H Platelet Count 758 H Mean Platelet Volume 11.5 H Neutrophils % 76.6 Lymphocytes % 5.9 L Monocytes % 9.2 Eosinophils % 0.6 Basophils % 1.1 Nucleated Red Blood Cells % 0.1 H Neutrophils # 24.2 H Lymphocytes # 1.9 Monocytes # 2.9 H Eosinophils # 0.2 Basophils # 0.4 H Nucleated Red Blood Cells # 0.0 Prothrombin Time 21.8 #H Prothrombin Time Ratio 1.7 INR International Normalized Ratio 1.88 Sodium Level 139 Potassium Level 4.0 Chloride Level 103 Carbon Dioxide Level 26 Anion Gap 14 Blood Urea Nitrogen 22 H Creatinine 1.06 H Glucose Level 124 Calcium Level 10.0 Phosphorus Level 3.1 Magnesium Level 2.0 Medications Medications Current Medications Phenol (Cepastat Lozenge) 1 lozenge Q1H PRN MT COUGH; Start 07/14/16 at 00:30 Diltiazem HCl (Cardizem Cd) 240 mg DAILY PO Last administered on 07/15/16 08: 20; Admin Dose 240 MG; Start 07/14/16 at 09:00 Furosemide (Lasix) 40 mg DAILY@06 PO Last administered on 07/15/16 06:16; Admin Dose 40 MG; Start 07/14/16 at 06:00 Guaifenesin (Robitussin Liquid Cup) 200 mg Q4H PRN PO COUGH; Start 07/14/16 at 00:30 Metoprolol Tartrate (Lopressor) 50 mg BID PO Last administered on 07/15/16 08: 20; Admin Dose 50 MG; Start 07/14/16 at 09:00 Potassium Chloride (Micro-K) 8 meq DAILY PO Last administered on 07/15/16 08: 19; Admin Dose 8 MEQ; Start 07/14/16 at 09:00 Morphine Sulfate (morphine) 2 mg Q4H PRN IM PAIN; Start 07/14/16 at 00:30 Acetaminophen (Tylenol Tab) 650 mg Q6H PRN PO PAIN AND OR ELEVATED TEMP; Start 07/14/16 at 00:30 Ondansetron HCl 4 mg 4 mg Q6H PRN IV NAUSEA AND/OR VOMITING; Start 07/14/16 at 00:30 Cefepime HCl 50 ml @ 100 mls/hr Q12 IVPB Last administered on 07/15/16 08:22 ; Admin Dose 100 MLS/HR; Start 07/14/16 at 09:00 Vancomycin HCl/ Sodium Chloride (Vancocin/NS) 250 ml @ 83.333 mls/ hr Q24H IVPB Last administered on 07/14/16 10:31; Admin Dose 83.333 MLS/HR; Start at 10:00 Famotidine (Pepcid) 20 mg BID PO Last administered on 07/15/16 08:19; Admin Dose 20 MG; Start 07/14/16 at 21:00 GLADIS PIERRE Jul 15, 2016 09:36
[2016-07-15 09:42] LABS: ADD UMIC YES; URINE BILIRUBIN (Dip) NEGATIVE (NEGATIVE); URINE BLOOD (Dip) 1+ (NEGATIVE); URINE COLOR LT. YELLOW (YELLOW); URINE GLUCOSE (Dip) NEGATIVE (NEGATIVE); URINE KETONES (Dip) NEGATIVE (NEGATIVE); URINE LEUKOCYTE ESTERASE (Dip) 2+ (NEGATIVE); URINE NITRITE (Dip) NEGATIVE (NEGATIVE); URINE TOTAL PROTEIN (Dip) NEGATIVE (NEGATIVE); URINE UROBILINOGEN (Dip) 0.2 E.U./dL (0.1-1.0)
[2016-07-15 10:04] LABS: SQUAMOUS EPITHELIAL CELL,UR FEW; URINE RBCS 0-2 /HPF (0)
[2016-07-15] MEDS: VANCOMYCIN 1.25 GM in SOD CHLORIDE 0.9% 250 ML IVPB SCH (10:19)
[2016-07-15 10:23] LABS: BASOPHIL # 0.3 10^3/ul (0.0-0.1); EOSINOPHILS # 0.3 10^3/ul (0.0-0.5); LYMPHOCYTES # 0.9 10^3/ul (0.8-2.9); MONOCYTE # 2.2 10^3/ul (0.3-0.9); NEUTROPHIL # 27.2 10^3/ul (1.6-7.5); PLATELET ESTIMATE PLT APPEAR INCREASED
--- NOTE | 2016-07-15 14:48 | PN ---
Date/Time of Note Date/Time of Note DATE: 07/15/16 TIME: 14:47 Assessment/Plan VTE Prophylaxis VTE Prophylaxis Intervention: other Lines/Catheters IV Catheter Type (from Nrs): Saline Lock Urinary Cath still in place: No Subjective 24 Hr Interval Summary Free Text/Dictation weak. afebrile Exam/Review of Systems Vital Signs Vitals Vital Signs Date Time Temp Pulse Resp B/P Pulse Ox O2 Delivery O2 Flow Rate FiO2 07/15/16 12:00 81 07/15/16 11:51 97.5 18 108/66 94 07/13/16 22:30 Nasal Cannula 2.0 Intake and Output 07/14/16 07/14/16 07/15/16 15:00 23:00 07:00 Intake Total 400 ml Balance 400 ml Exam Constitutional: alert, oriented, well developed Psych: nl mood/affect, no complaints Head: atraumatic, normocephalic Eyes: EOMI, PERRL, nl conjunctiva, nl lids, nl sclera ENMT: nl external ears & nose, nl lips & teeth, nl nasal mucosa & septum Neck: non-tender, supple Respiratory: clear to auscultation, normal air movement, No congested cough, No crackles/rales, No diminished breath sounds, No intercostal retraction, No labored breathing, No other, No respirations, No tactile fremitus, No wheezing Cardiovascular: irregular rhythm Gastrointestinal: nl liver, spleen, non-tender, soft, No ascites, No bowel sounds, No distended, No firm, No hepatomegaly, No mass , No other, No rebound or guarding, No splenomegaly, No surgical scars, No tender Musculoskeletal: nl extremities to inspection Extremities: normal pulses, No calf tenderness, No clubbing, No cyanosis, No edema, No other, No palpable cord, No pitting pedal edema, No tenderness Neurological: P[employer]ING SUPER[employer]OR II-XII intact, nl mental status, nl speech, nl strength Skin: nl turgor Lymph: nl lymph nodes Results Result Diagram: 07/15/16 0515 07/15/16 0515 Results 24 hrs Laboratory Tests Test 07/15/16 05:15 07/15/16 07:39 White Blood Count 31.6 H Red Blood Count 4.27 Hemoglobin 11.9 L Hematocrit 39.0 Mean Corpuscular Volume 91.3 Mean Corpuscular Hemoglobin 27.9 L Mean Corpuscular Hemoglobin Concent 30.5 L Red Cell Distribution Width 20.6 H Platelet Count 758 H Mean Platelet Volume 11.5 H Neutrophils % 86.0 H Band Neutrophils % 1.0 Lymphocytes % 3.0 L Monocytes % 7.0 Eosinophils % 1.0 Basophils % 1.0 Promyelocytes % 1.0 H Nucleated Red Blood Cells % Neutrophils # 27.2 H Lymphocytes # 0.9 Monocytes # 2.2 H Eosinophils # 0.3 Basophils # 0.3 H Promyelocytes # 0.3 Nucleated Red Blood Cells # Differential Comment MANUAL DIFF Platelet Estimate PLT APPEAR INCREASED Prothrombin Time 21.8 #H Prothrombin Time Ratio 1.7 INR International Normalized Ratio 1.88 Sodium Level 139 Potassium Level 4.0 Chloride Level 103 Carbon Dioxide Level 26 Anion Gap 14 Blood Urea Nitrogen 22 H Creatinine 1.06 H Glucose Level 124 Calcium Level 10.0 Phosphorus Level 3.1 Magnesium Level 2.0 Urine Color LT. YELLOW Urine Clarity CLEAR Urine pH 6.5 Urine Specific [place] <=1.005 L Urine Ketones NEGATIVE Urine Nitrite NEGATIVE Urine Bilirubin NEGATIVE Urine Urobilinogen 0.2 E.U./dL Urine Leukocyte Esterase 2+ H Urine Microscopic RBC 0-2 Urine Microscopic WBC 0-2 Urine Squamous Epithelial Cells FEW Urine Hemoglobin 1+ H Urine Glucose NEGATIVE Urine Total Protein NEGATIVE Medications Medications Current Medications Phenol (Cepastat Lozenge) 1 lozenge Q1H PRN MT COUGH; Start 07/14/16 at 00:30 Diltiazem HCl (Cardizem Cd) 240 mg DAILY PO Last administered on 07/15/16 08: 20; Admin Dose 240 MG; Start 07/14/16 at 09:00 Furosemide (Lasix) 40 mg DAILY@06 PO Last administered on 07/15/16 06:16; Admin Dose 40 MG; Start 07/14/16 at 06:00 Guaifenesin (Robitussin Liquid Cup) 200 mg Q4H PRN PO COUGH; Start 07/14/16 at 00:30 Metoprolol Tartrate (Lopressor) 50 mg BID PO Last administered on 07/15/16 08: 20; Admin Dose 50 MG; Start 07/14/16 at 09:00 Potassium Chloride (Micro-K) 8 meq DAILY PO Last administered on 07/15/16 08: 19; Admin Dose 8 MEQ; Start 07/14/16 at 09:00 Morphine Sulfate (morphine) 2 mg Q4H PRN IM PAIN; Start 07/14/16 at 00:30 Acetaminophen (Tylenol Tab) 650 mg Q6H PRN PO PAIN AND OR ELEVATED TEMP; Start 07/14/16 at 00:30 Ondansetron HCl 4 mg 4 mg Q6H PRN IV NAUSEA AND/OR VOMITING; Start 07/14/16 at 00:30 Cefepime HCl 50 ml @ 100 mls/hr Q12 IVPB Last administered on 07/15/16 08:22 ; Admin Dose 100 MLS/HR; Start 07/14/16 at 09:00 Vancomycin HCl/ Sodium Chloride (Vancocin/NS) 250 ml @ 83.333 mls/ hr Q24H IVPB Last administered on 07/15/16 10:19; Admin Dose 83.333 MLS/HR; Start at 10:00 Famotidine (Pepcid) 20 mg BID PO Last administered on 07/15/16 08:19; Admin Dose 20 MG; Start 07/14/16 at 21:00 Miscellaneous Information (*Rx Drug Level Order Reminder*) 1 ONCE ONCE XX ; Start 07/16/16 at 09:00; Stop 07/16/16 at 09:01 ROSANA HAWKINS MD Jul 15, 2016 14:48
--- NOTE | 2016-07-15 18:00 | PN ---
DATE: 07/15/2016 SUBJECTIVE: The patient is alert, lying comfortably in bed. No fevers. Vital signs stable. LABORATORY DATA: WBC 31.6, platelets 758, neutrophils 86, bands 1, lymphs 3, monos 7. BUN 22, creatinine 1.06. MICROBIOLOGY: Blood culture negative. Urinalysis on admission was positive for leukocyte esterase, WBC. ANTIMICROBIALS: The patient is on: 1. Vancomycin. 2. Cefepime. PHYSICAL EXAMINATION: GENERAL: Well-developed, fragile, elderly woman who is awake, in no distress. HEENT: Head atraumatic, normocephalic. Sclerae anicteric. Buccal mucosa dry. NECK: Supple, trachea midline. CHEST: Rise symmetrical. Breath sounds diminished to bases. HEART: S1, S2. ABDOMEN: Soft, bowel sounds present. EXTREMITIES: With bilateral thigh edema and bruising. ASSESSMENT: 1. Leukocytosis, possibly reactive, rule out myelodysplasia. 2. Bilateral distal thigh hematomas secondary to subtherapeutic INR. 3. Questionable urinary tract infection. 4. Chronic atrial fibrillation. 5. Pulmonary hypertension. 6. Congestive heart failure. PLAN: The patient remains stable. We are going to discontinue antibiotics and observe. We will send urine for culture. Follow recommendations of consultants. Of note, patient also has bilateral pleural effusions, left greater than the right, per chest x-ray on admission Dictated By: FRANCES SHIN RETAIL CLERK for DARLEEN MONAHAN/NTS Conf#: [id number] DID#: [id number]
[2016-07-16] VITALS (9 sets, daily range): BP systolic 107–122; BP diastolic 51–70; PULSE 77–109; RESP 15–19
[2016-07-16] MEDS: FUROSEMIDE 40 MG TAB PO SCH (05:31)
[2016-07-16] MEDS: METOPROLOL 50 MG TAB PO SCH ×2 (09:40→20:45)
[2016-07-16] MEDS: POTASSIUM CHLORIDE (SR) 8 MEQ CAP PO SCH (09:41)
[2016-07-16] MEDS: FAMOTIDINE 20 MG TAB PO SCH ×2 (09:41→20:44)
[2016-07-16] MEDS: DILTIAZEM (CD) 240 MG CAP PO SCH (09:41)
--- NOTE | 2016-07-16 12:10 | PN ---
Date/Time of Note Date/Time of Note DATE: 07/16/16 TIME: 11:58 Assessment/Plan VTE Prophylaxis VTE Prophylaxis Intervention: other Lines/Catheters IV Catheter Type (from [facility]): Saline Lock Urinary Cath still in place: No Assessment/Plan Assessment/Plan 1. Bilateral distal thigh hematomas secondary to coumadin, stable 2. Coagulopathy due to coumadin, coumadin is on hold, follow up with INR 3. Rheumatic heart disease with moderate to severe aortic stenosis, moderate to severe mitral stenosis and regurgitation 4. Chronic atrial fibrillation, controlled rate, coumadin on hold 5. Pulmonary hypertension. due to valvular disease 6. Leukocytosis, reactive versus myeloproliferative disease, I called hematology consult yesterday. 7. I had long discussion about patient's conditions and plan with one son yesterday and another son today. Subjective 24 Hr Interval Summary Free Text/Dictation weak. afebrile. no respiratory distress Exam/Review of Systems Vital Signs Vitals Vital Signs Date Time Temp Pulse Resp B/P Pulse Ox O2 Delivery O2 Flow Rate FiO2 07/16/16 08:00 96 07/16/16 04:15 97.2 19 116/62 93 07/13/16 22:30 Nasal Cannula 2.0 Intake and Output 07/15/16 07/15/16 07/16/16 15:00 23:00 07:00 Intake Total 300 ml 800 ml 150 ml Balance 300 ml 800 ml 150 ml Exam Constitutional: alert, oriented, well developed Psych: nl mood/affect, no complaints Head: atraumatic, normocephalic Eyes: EOMI, PERRL, nl conjunctiva, nl lids, nl sclera ENMT: nl external ears & nose, nl lips & teeth, nl nasal mucosa & septum Neck: non-tender, supple Respiratory: clear to auscultation, normal air movement, No congested cough, No crackles/rales, No diminished breath sounds, No intercostal retraction, No labored breathing, No other, No respirations, No tactile fremitus, No wheezing Cardiovascular: nl pulses, systolic murmur Gastrointestinal: nl liver, spleen, non-tender, soft, No ascites, No bowel sounds, No distended, No firm, No hepatomegaly, No mass , No other, No rebound or guarding, No splenomegaly, No surgical scars, No tender Musculoskeletal: nl extremities to inspection Extremities: normal pulses, other (hematoma with ecchimosis on both thighs), No calf tenderness, No clubbing, No cyanosis, No edema, No palpable cord, No pitting pedal edema, No tenderness Neurological: LINER INSTALLER II-XII intact, nl mental status, nl speech, nl strength Lymph: nl lymph nodes Results Result Diagram: 07/15/1651407/15/16514 Medications Medications Current Medications Phenol (Cepastat Lozenge) 1 lozenge Q1H PRN MT COUGH; Start 07/14/16 at 00:30 Diltiazem HCl (Cardizem Cd) 240 mg DAILY PO Last administered on 07/16/16 09: 41; Admin Dose 240 MG; Start 07/14/16 at 09:00 Furosemide (Lasix) 40 mg DAILY@06 PO Last administered on 07/16/16 05:31; Admin Dose 40 MG; Start 07/14/16 at 06:00 Guaifenesin (Robitussin Liquid Cup) 200 mg Q4H PRN PO COUGH; Start 07/14/16 at 00:30 Metoprolol Tartrate (Lopressor) 50 mg BID PO Last administered on 07/16/16 09: 40; Admin Dose 50 MG; Start 07/14/16 at 09:00 Potassium Chloride (Micro-K) 8 meq DAILY PO Last administered on 07/16/16 09: 41; Admin Dose 8 MEQ; Start 07/14/16 at 09:00 Morphine Sulfate (morphine) 2 mg Q4H PRN IM PAIN; Start 07/14/16 at 00:30 Acetaminophen (Tylenol Tab) 650 mg Q6H PRN PO PAIN AND OR ELEVATED TEMP; Start 07/14/16 at 00:30 Ondansetron HCl (Zofran Inj) 4 mg Q6H PRN IV NAUSEA AND/OR VOMITING; Start at 00:30 Famotidine (Pepcid) 20 mg BID PO Last administered on 07/16/16 09:41; Admin Dose 20 MG; Start 07/14/16 at 21:00 ROSANA HAWKINS MD Jul 16, 2016 12:08
[2016-07-16 13:22] LABS: ADD SCAN DIFF NO
[2016-07-16 13:26] LABS: ABNORMAL IP MESSAGE 1; HEMOGLOBIN 11.3 g/dl (12.0-16.0); MEAN CORPUSCULAR HEMOGLOBIN 27.6 pg (29.0-33.0); MEAN CORPUSCULAR HGB CONC 29.7 g/dl (32.0-37.0); MEAN CORPUSCULAR VOLUME 92.9 fl (82.0-101.0); MEAN PLATELET VOLUME 11.4 fl (7.4-10.4); PLATELET COUNT 746 10^3/UL (140-415); RED BLOOD COUNT 4.09 10^6/ul (4.20-5.40); RED CELL DISTRIBUTION WIDTH 21.4 % (11.5-14.5); WHITE BLOOD COUNT 39.8 10^3/ul (4.8-10.8)
[2016-07-16 13:37] LABS: INR 1.47; PROTIME 17.9 Sec (12.2-14.2); PT RATIO 1.4
[2016-07-16 13:37] LABS: POTASSIUM 3.9 mmol/L (3.5-5.1)
[2016-07-16 13:39] LABS: CREATININE 1.16 mg/dl (0.44-1.00)
[2016-07-16 13:40] LABS: CALCIUM 9.9 mg/dl (8.4-10.2)
[2016-07-16 14:11] LABS: PLATELET ESTIMATE PLT APPEAR INCREASED
[2016-07-16 14:13] LABS: BASOPHIL # 0.4 10^3/ul (0.0-0.1); EOSINOPHILS # 0.4 10^3/ul (0.0-0.5); MONOCYTE # 4.4 10^3/ul (0.3-0.9); MYELOCYTES # 2.4; NEUTROPHIL # 25.9 10^3/ul (1.6-7.5)
--- NOTE | 2016-07-16 15:36 | CONS ---
Date/Time of Note Date/Time of Note DATE: 07/16/16 TIME: 15:35 Assessment/Plan Assessment/Plan Chief Complaint/Hosp Course SUBJECTIVE: No acute events. No fevers. Vital signs stable. MICROBIOLOGY: Blood culture negative. Urine cx pending PHYSICAL EXAMINATION: GENERAL: Well-developed, fragile, elderly woman who is awake, in no distress. HEENT: Head atraumatic, normocephalic. Sclerae anicteric. Buccal mucosa dry. NECK: Supple, trachea midline. CHEST: Rise symmetrical. Breath sounds diminished to bases. HEART: S1, S2. ABDOMEN: Soft, bowel sounds present. EXTREMITIES: With bilateral thigh edema and bruising. ASSESSMENT: 1. Leukocytosis, possibly reactive, rule out myelodysplasia. 2. Bilateral distal thigh hematomas secondary to subtherapeutic INR. 3. Questionable urinary tract infection. 4. Chronic atrial fibrillation. 5. Pulmonary hypertension. 6. Congestive heart failure. PLAN: The patient remains stable. Pending urine cx, continue present care, pending hematology eval [facility] staff Problems: Consultation Date/Type/Reason Admit Date/Time Jul 13, 2016 at 22:10 Initial Consult Date 07/14/16 Type of Consultation: ID Referring Provider: LESA WHYTE MASTER ESTHETICIAN Exam/Review of Systems Vital Signs Vitals Vital Signs Date Time Temp Pulse Resp B/P Pulse Ox O2 Delivery O2 Flow Rate FiO2 07/16/16 15:17 98.3 70 16 122/70 97 07/13/16 22:30 Nasal Cannula 2.0 Intake and Output 07/15/16 07/15/16 07/16/16 15:00 23:00 07:00 Intake Total 300 ml 800 ml 150 ml Balance 300 ml 800 ml 150 ml Results Result Diagram: 07/16/16 1310 07/16/16 1300 Results 24 hrs Laboratory Tests Test 07/16/16 13:00 07/16/16 13:10 Sodium Level 138 Potassium Level 3.9 Chloride Level 103 Carbon Dioxide Level 25 Anion Gap 14 Blood Urea Nitrogen 25 H Creatinine 1.16 H Glucose Level 115 Calcium Level 9.9 White Blood Count 39.8 #H Red Blood Count 4.09 L Hemoglobin 11.3 L Hematocrit 38.0 Mean Corpuscular Volume 92.9 Mean Corpuscular Hemoglobin 27.6 L Mean Corpuscular Hemoglobin Concent 29.7 L Red Cell Distribution Width 21.4 H Platelet Count 746 H Mean Platelet Volume 11.4 H Neutrophils % 65.0 Band Neutrophils % 3.0 Lymphocytes % 10.0 L Monocytes % 11.0 Eosinophils % 1.0 Basophils % 1.0 Metamyelocytes % 3.0 H Myelocytes % 6.0 H Neutrophils # 25.9 H Lymphocytes # 4.0 H Monocytes # 4.4 H Eosinophils # 0.4 Basophils # 0.4 H Metamyelocytes # 1.2 Myelocytes # 2.4 Differential Comment MANUAL DIFF Platelet Estimate PLT APPEAR INCREASED Large Platelets FEW Prothrombin Time 17.9 H Prothrombin Time Ratio 1.4 INR International Normalized Ratio 1.47 Magnesium Level 2.2 Medications Medications Current Medications Phenol (Cepastat Lozenge) 1 lozenge Q1H PRN MT COUGH; Start 07/14/16 at 00:30 Diltiazem HCl (Cardizem Cd) 240 mg DAILY PO Last administered on 07/16/16 09: 41; Admin Dose 240 MG; Start 07/14/16 at 09:00 Furosemide (Lasix) 40 mg DAILY@06 PO Last administered on 07/16/16 05:31; Admin Dose 40 MG; Start 07/14/16 at 06:00 Guaifenesin (Robitussin Liquid Cup) 200 mg Q4H PRN PO COUGH; Start 07/14/16 at 00:30 Metoprolol Tartrate (Lopressor) 50 mg BID PO Last administered on 07/16/16 09: 40; Admin Dose 50 MG; Start 07/14/16 at 09:00 Potassium Chloride (Micro-K) 8 meq DAILY PO Last administered on 07/16/16 09: 41; Admin Dose 8 MEQ; Start 07/14/16 at 09:00 Morphine Sulfate (morphine) 2 mg Q4H PRN IM PAIN; Start 07/14/16 at 00:30 Acetaminophen (Tylenol Tab) 650 mg Q6H PRN PO PAIN AND OR ELEVATED TEMP; Start 07/14/16 at 00:30 Ondansetron HCl (Zofran Inj) 4 mg Q6H PRN IV NAUSEA AND/OR VOMITING; Start at 00:30 Famotidine (Pepcid) 20 mg BID PO Last administered on 07/16/16 09:41; Admin Dose 20 MG; Start 07/14/16 at 21:00 FRANCES SHIN NP Jul 16, 2016 15:36
--- NOTE | 2016-07-16 15:48 | CONS ---
Date/Time of Note Date/Time of Note DATE: 07/16/16 TIME: 15:29 Assessment/Plan Assessment/Plan Chief Complaint/Hosp Course 76 yo female with 1. Leukocytosis - given negative blood cultures and stable vital signs patient does not appear to be actively infected. If is possible that she is having a leukemoid reaction secondary to her thigh hematoma. still we need to rule out a myeloproliferative disorder -will check flow cytometry, BCR ABL and MENDEZ 2 mutation analysis 2. Coagulopathy and thigh hematoma secondary to supra-therapeutic INR. Pt has valvular heart disease and afib -agree with holding Coumadin for now given the recent bleed. once her hematoma has stabilized we can consider restarting Coumadin at that time Problems: Consultation Date/Type/Reason Admit Date/Time Jul 13, 2016 at 22:10 Date of Consultation: Jul 16, 2016 Type of Consultation: hematology Reason for Consultation leukocytosis Referring Provider: ROSANA HAWKINS MD Hx of Present Illness 76-year-old female with PMH of Rhumatic heart disease, Afib and HTN who presents with bruising and swelling of her bilateral thighs. Of not, pt was recently admitted with shortness of breath when an echo demonstrated moderate to severe aortic stenosis, moderate to severe mitral stenosis and mitral regurgitation, severely enlarged left and right atrium with moderate to severe tricuspid regurgitation. Her ejection fraction was 60%. Since admission her WBC count has consistently been around 30K. A rt thigh ultrasound was done which demonstrated 4.7 cm complex subcutaneous cystic structure with layering debris in the region of pain and swelling right thigh most compatible with subcutaneous hematoma.ID consult was called and a blood and urine cultures were drawn. Empiric antibiotics were started but since all cultures were negative antibiotics were stopped. Despite antibiotics WBC count is still elevated which has raised concern for an underlying hematologic myeloproliferative disorder. Of note on admission, patient's INR was noted to be > 9 which is thought to be the cause of her thigh hematomas. Psychological: nl mood/affect, no complaints Past Medical History atrial fibrillation; rheumatic heart disease; moderate to severe aortic stenosis ; moderate to severe mitral stenosis and regurgitation; hypertension Family History Significant Family History: no pertinent family hx Social History Alcohol Use: none Smoking Status: Never smoker Drug Use: none Exam/Review of Systems Vital Signs Vitals Vital Signs Date Time Temp Pulse Resp B/P Pulse Ox O2 Delivery O2 Flow Rate FiO2 07/16/16 15:17 98.3 70 16 122/70 97 07/13/16 22:30 Nasal Cannula 2.0 Intake and Output 07/15/16 07/15/16 07/16/16 14:59 22:59 06:59 Intake Total 300 ml 800 ml 150 ml Balance 300 ml 800 ml 150 ml Exam Constitutional: alert, oriented Psych: nl mood/affect, no complaints Head: normocephalic Eyes: nl conjunctiva ENMT: nl external ears & nose Neck: non-tender, supple Respiratory: clear to auscultation, congested cough Cardiovascular: regular rate and rhythm Gastrointestinal: soft Musculoskeletal: other (is bruising and swelling/hematoma on the right distal thigh, left distal thigh there are 2 areas of ecchymosis and hematomas, greater on the right) Results Result Diagram: 07/16/16 1310 07/16/16 1300 Results 24 hrs Laboratory Tests Test 07/16/16 13:00 07/16/16 13:10 Sodium Level 138 Potassium Level 3.9 Chloride Level 103 Carbon Dioxide Level 25 Anion Gap 14 Blood Urea Nitrogen 25 H Creatinine 1.16 H Glucose Level 115 Calcium Level 9.9 White Blood Count 39.8 #H Red Blood Count 4.09 L Hemoglobin 11.3 L Hematocrit 38.0 Mean Corpuscular Volume 92.9 Mean Corpuscular Hemoglobin 27.6 L Mean Corpuscular Hemoglobin Concent 29.7 L Red Cell Distribution Width 21.4 H Platelet Count 746 H Mean Platelet Volume 11.4 H Neutrophils % 65.0 Band Neutrophils % 3.0 Lymphocytes % 10.0 L Monocytes % 11.0 Eosinophils % 1.0 Basophils % 1.0 Metamyelocytes % 3.0 H Myelocytes % 6.0 H Neutrophils # 25.9 H Lymphocytes # 4.0 H Monocytes # 4.4 H Eosinophils # 0.4 Basophils # 0.4 H Metamyelocytes # 1.2 Myelocytes # 2.4 Differential Comment MANUAL DIFF Platelet Estimate PLT APPEAR INCREASED Large Platelets FEW Prothrombin Time 17.9 H Prothrombin Time Ratio 1.4 INR International Normalized Ratio 1.47 Magnesium Level 2.2 Medications Medications Current Medications Phenol (Cepastat Lozenge) 1 lozenge Q1H PRN MT COUGH; Start 07/14/16 at 00:30 Diltiazem HCl (Cardizem Cd) 240 mg DAILY PO Last administered on 07/16/16t 09: 41; Admin Dose 240 MG; Start 07/14/16 at 09:00 Furosemide (Lasix) 40 mg DAILY@06 PO Last administered on 07/16/16 05:31; Admin Dose 40 MG; Start 07/14/16 at 06:00 Guaifenesin (Robitussin Liquid Cup) 200 mg Q4H PRN PO COUGH; Start 07/14/16 at 00:30 Metoprolol Tartrate (Lopressor) 50 mg BID PO Last administered on 07/16/16 09: 40; Admin Dose 50 MG; Start 07/14/16 at 09:00 Potassium Chloride (Micro-K) 8 meq DAILY PO Last administered on 07/16/16 09: 41; Admin Dose 8 MEQ; Start 07/14/16 at 09:00 Morphine Sulfate (morphine) 2 mg Q4H PRN IM PAIN; Start 07/14/16 at 00:30 Acetaminophen (Tylenol Tab) 650 mg Q6H PRN PO PAIN AND OR ELEVATED TEMP; Start 07/14/16 at 00:30 Ondansetron HCl (Zofran Inj) 4 mg Q6H PRN IV NAUSEA AND/OR VOMITING; Start at 00:30 Famotidine (Pepcid) 20 mg BID PO Last administered on 07/16/16 09:41; Admin Dose 20 MG; Start 07/14/16 at 21:00 ANTONIA JAUREGUI M.D. Jul 16, 2016 15:40
[2016-07-17] VITALS (14 sets, daily range): BP systolic 94–133; BP diastolic 45–80; PULSE 71–86; RESP 15–20
[2016-07-17] MEDS: FUROSEMIDE 40 MG TAB PO SCH (05:12)
[2016-07-17 07:11] LABS: ABNORMAL IP MESSAGE 1; HEMATOCRIT 35.4 % (37.0-47.0); HEMOGLOBIN 10.7 g/dl (12.0-16.0); MEAN CORPUSCULAR HGB CONC 30.2 g/dl (32.0-37.0); MEAN CORPUSCULAR VOLUME 92.7 fl (82.0-101.0); MEAN PLATELET VOLUME 11.4 fl (7.4-10.4); RED BLOOD COUNT 3.82 10^6/ul (4.20-5.40); RED CELL DISTRIBUTION WIDTH 21.6 % (11.5-14.5)
[2016-07-17 07:18] LABS: POTASSIUM 3.5 mmol/L (3.5-5.1)
[2016-07-17 07:21] LABS: CREATININE 1.04 mg/dl (0.44-1.00)
[2016-07-17 07:22] LABS: CALCIUM 9.7 mg/dl (8.4-10.2)
[2016-07-17 07:31] LABS: INR 1.34; PROTIME 16.7 Sec (12.2-14.2); PT RATIO 1.3
--- NOTE | 2016-07-17 08:40 | CONS ---
Date/Time of Note Date/Time of Note DATE: 07/17/16 TIME: 08:38 Assessment/Plan Assessment/Plan Chief Complaint/Hosp Course Pre-procedure evaluation:pt is to undergo a low risk procedure under conscious sedation. There should be no adverse reactions related to her valvular disease. Ok to proceed as planned Large right thigh hematoma: In setting of supertherapeutic INR. Pt denies trauma. INR now <2. Coagulopathy: INR high due to coumadin. Now improved Chronic diastolic/valvular heart failure:compensated by exam Rheumatic heart disease: plan for double valve surgery as outpt Severe MS Moderate MR Mod-Severe Chronic afib: rates controlled. On coumadin at home -pt is to undergo a low risk procedure under conscious sedation. There should be no adverse reactions related to her valvular disease. Ok to proceed as planned -continue diltiazem and MTP -continue lasix 40mg PO daily to keep even -in terms of anticoagulation, can consider holding coumadin for now and restarting at a lower dose 1-2 weeks as outpt when hematoma improves Problems: Consultation Date/Type/Reason Admit Date/Time Jul 13, 2016 at 22:10 Initial Consult Date 07/14/16 Type of Consultation: Cardiology Referring Provider: ROSANA HAWKINS MD 24 HR Interval Summary Free Text/Dictation No o/n events. Concern for leukemia. Bone marrow biopsy planned. Exam/Review of Systems Vital Signs Vitals Vital Signs Date Time Temp Pulse Resp B/P Pulse Ox O2 Delivery O2 Flow Rate FiO2 07/17/16 08:20 82 07/17/16 08:03 98.6 18 127/59 97 07/13/16 22:30 Nasal Cannula 2.0 Intake and Output 07/16/16 07/16/16 07/17/16 15:00 23:00 07:00 Intake Total 700 ml 200 ml Balance 700 ml 200 ml Exam Constitutional: alert, oriented Head: atraumatic, normocephalic Neck: No jvd Respiratory: clear to auscultation Cardiovascular: regular rate and rhythm, systolic murmur (3/6 FRENCH), No edema Gastrointestinal: non-tender, soft Results Result Diagram: 07/17/16 0633 07/17/16 0633 Results 24 hrs Laboratory Tests Test 07/16/16 13:00 07/16/16 13:10 07/17/16 06:33 Sodium Level 138 140 Potassium Level 3.9 3.5 Chloride Level 103 103 Carbon Dioxide Level 25 27 Anion Gap 14 14 Blood Urea Nitrogen 25 H 24 H Creatinine 1.16 H 1.04 H Glucose Level 115 117 Calcium Level 9.9 9.7 White Blood Count 39.8 #H 32.6 H Red Blood Count 4.09 L 3.82 L Hemoglobin 11.3 L 10.7 L Hematocrit 38.0 35.4 L Mean Corpuscular Volume 92.9 92.7 Mean Corpuscular Hemoglobin 27.6 L 28.0 L Mean Corpuscular Hemoglobin Concent 29.7 L 30.2 L Red Cell Distribution Width 21.4 H 21.6 H Platelet Count 746 H 669 H Mean Platelet Volume 11.4 H 11.4 H Neutrophils % 65.0 Band Neutrophils % 3.0 Lymphocytes % 10.0 L Monocytes % 11.0 Eosinophils % 1.0 Basophils % 1.0 Metamyelocytes % 3.0 H Myelocytes % 6.0 H Neutrophils # 25.9 H Lymphocytes # 4.0 H Monocytes # 4.4 H Eosinophils # 0.4 Basophils # 0.4 H Metamyelocytes # 1.2 Myelocytes # 2.4 Differential Comment MANUAL DIFF Platelet Estimate PLT APPEAR INCREASED Large Platelets FEW Prothrombin Time 17.9 H 16.7 H Prothrombin Time Ratio 1.4 1.3 INR International Normalized Ratio 1.47 1.34 Magnesium Level 2.2 2.1 Medications Medications Current Medications Phenol (Cepastat Lozenge) 1 lozenge Q1H PRN MT COUGH; Start 07/14/16 at 00:30 Diltiazem HCl (Cardizem Cd) 240 mg DAILY PO Last administered on 07/16/16 09: 41; Admin Dose 240 MG; Start 07/14/16 at 09:00 Furosemide (Lasix) 40 mg DAILY@06 PO Last administered on 07/17/16 05:12; Admin Dose 40 MG; Start 07/14/16 at 06:00 Guaifenesin (Robitussin Liquid Cup) 200 mg Q4H PRN PO COUGH; Start 07/14/16 at 00:30 Metoprolol Tartrate (Lopressor) 50 mg BID PO Last administered on 07/16/16 20: 45; Admin Dose 50 MG; Start 07/14/16 at 09:00 Potassium Chloride (Micro-K) 8 meq DAILY PO Last administered on 07/16/16 09: 41; Admin Dose 8 MEQ; Start 07/14/16 at 09:00 Morphine Sulfate (morphine) 2 mg Q4H PRN IM PAIN; Start 07/14/16 at 00:30 Acetaminophen (Tylenol Tab) 650 mg Q6H PRN PO PAIN AND OR ELEVATED TEMP; Start 07/14/16 at 00:30 Ondansetron HCl (Zofran Inj) 4 mg Q6H PRN IV NAUSEA AND/OR VOMITING; Start at 00:30 Famotidine (Pepcid) 20 mg BID PO Last administered on 07/16/16 20:44; Admin Dose 20 MG; Start 07/14/16 at 21:00 GLADIS PIERRE Jul 17, 2016 08:40
[2016-07-17] MEDS ORDERED: MIDAZOLAM 1 MG/ML 2 ML INJ ONE (09:03)
[2016-07-17] MEDS ORDERED: LIDOCAINE 1% (MDV) 20 ML INJ ONE (09:03)
[2016-07-17] MEDS ORDERED: FENTAnyl 50 MCG/ML VIAL ONE (09:03)
[2016-07-17 11:03] LABS: MONOCYTE # 1.6 10^3/ul (0.3-0.9); MYELOCYTES # 0.7; NEUTROPHIL # 25.8 10^3/ul (1.6-7.5)
[2016-07-17 11:04] LABS: PLATELET ESTIMATE PLT APPEAR INCREASED
--- NOTE | 2016-07-17 15:00 | CONS ---
Date/Time of Note Date/Time of Note DATE: 07/17/16 TIME: 14:59 Assessment/Plan Assessment/Plan Chief Complaint/Hosp Course SUBJECTIVE: No acute events. No fevers. Vital signs stable. MICROBIOLOGY: Blood culture negative. Urine cx pending PHYSICAL EXAMINATION: GENERAL: Well-developed, fragile, elderly woman who is awake, in no distress. HEENT: Head atraumatic, normocephalic. Sclerae anicteric. Buccal mucosa dry. NECK: Supple, trachea midline. CHEST: Rise symmetrical. Breath sounds diminished to bases. HEART: S1, S2. ABDOMEN: Soft, bowel sounds present. EXTREMITIES: With bilateral thigh edema and bruising. ASSESSMENT: 1. Leukocytosis,likely reactive, rule out myelodysplasia. 2. Bilateral distal thigh hematomas secondary to subtherapeutic INR. 3. Questionable urinary tract infection. 4. Chronic atrial fibrillation. 5. Pulmonary hypertension. 6. Congestive heart failure. PLAN: The patient remains stable. No fevers, continue present care, hematology rec-s noted [facility] staff Problems: Consultation Date/Type/Reason Admit Date/Time Jul 13, 2016 at 22:10 Initial Consult Date 07/14/16 Type of Consultation: id Referring Provider: ROSANA HAWKINS MD Exam/Review of Systems Vital Signs Vitals Vital Signs Date Time Temp Pulse Resp B/P Pulse Ox O2 Delivery O2 Flow Rate FiO2 07/17/16 12:03 81 07/17/16 11:18 07/17/16 08:03 98.6 18 97 07/13/16 22:30 Nasal Cannula 2.0 Intake and Output 07/16/16 07/16/16 07/17/16 15:00 23:00 07:00 Intake Total 700 ml 200 ml Balance 700 ml 200 ml Results Result Diagram: 07/17/16 0633 07/17/16 0633 Results 24 hrs Laboratory Tests Test 07/17/16 06:33 White Blood Count 32.6 H Red Blood Count 3.82 L Hemoglobin 10.7 L Hematocrit 35.4 L Mean Corpuscular Volume 92.7 Mean Corpuscular Hemoglobin 28.0 L Mean Corpuscular Hemoglobin Concent 30.2 L Red Cell Distribution Width 21.6 H Platelet Count 669 H Mean Platelet Volume 11.4 H Neutrophils % 79.0 H Band Neutrophils % 3.0 Lymphocytes % 6.0 L Reactive Lymphocytes % 2.0 Monocytes % 5.0 Eosinophils % Metamyelocytes % 1.0 H Myelocytes % 2.0 H Promyelocytes % 2.0 H Neutrophils # 25.8 H Lymphocytes # 2.0 Monocytes # 1.6 H Eosinophils # Metamyelocytes # 0.3 Myelocytes # 0.7 Promyelocytes # 0.7 Platelet Estimate PLT APPEAR INCREASED Prothrombin Time 16.7 H Prothrombin Time Ratio 1.3 INR International Normalized Ratio 1.34 Sodium Level 140 Potassium Level 3.5 Chloride Level 103 Carbon Dioxide Level 27 Anion Gap 14 Blood Urea Nitrogen 24 H Creatinine 1.04 H Glucose Level 117 Calcium Level 9.7 Magnesium Level 2.1 Medications Medications Current Medications Phenol (Cepastat Lozenge) 1 lozenge Q1H PRN MT COUGH; Start 07/14/16 at 00:30 Diltiazem HCl (Cardizem Cd) 240 mg DAILY PO Last administered on 07/16/16 09: 41; Admin Dose 240 MG; Start 07/14/16 at 09:00 Furosemide (Lasix) 40 mg DAILY@06 PO Last administered on 07/17/16 05:12; Admin Dose 40 MG; Start 07/14/16 at 06:00 Guaifenesin (Robitussin Liquid Cup) 200 mg Q4H PRN PO COUGH; Start 07/14/16 at 00:30 Metoprolol Tartrate (Lopressor) 50 mg BID PO Last administered on 07/16/16 20: 45; Admin Dose 50 MG; Start 07/14/16 at 09:00 Potassium Chloride (Micro-K) 8 meq DAILY PO Last administered on 07/16/16 09: 41; Admin Dose 8 MEQ; Start 07/14/16 at 09:00 Morphine Sulfate (morphine) 2 mg Q4H PRN IM PAIN; Start 07/14/16 at 00:30 Acetaminophen (Tylenol Tab) 650 mg Q6H PRN PO PAIN AND OR ELEVATED TEMP; Start 07/14/16 at 00:30 Ondansetron HCl (Zofran Inj) 4 mg Q6H PRN IV NAUSEA AND/OR VOMITING; Start at 00:30 Famotidine (Pepcid) 20 mg BID PO Last administered on 07/16/16 20:44; Admin Dose 20 MG; Start 07/14/16 at 21:00 FRANCES SHIN NP Jul 17, 2016 15:00
[2016-07-17] MEDS: POTASSIUM CHLORIDE (SR) 8 MEQ CAP PO SCH (15:17)
[2016-07-17] MEDS: FAMOTIDINE 20 MG TAB PO SCH ×2 (15:18→20:51)
[2016-07-17] MEDS: DILTIAZEM (CD) 240 MG CAP PO SCH (15:18)
[2016-07-17] MEDS: METOPROLOL 50 MG TAB PO SCH ×2 (15:19→20:52)
--- NOTE | 2016-07-17 15:40 | CONS ---
Date/Time of Note Date/Time of Note DATE: 07/17/16 TIME: 15:37 Assessment/Plan Assessment/Plan Chief Complaint/Hosp Course 76 yo female with 1. Leukocytosis - given negative blood cultures and stable vital signs patient does not appear to be actively infected. If is possible that she is having a leukemoid reaction secondary to her thigh hematoma. still we need to rule out a myeloproliferative disorder -will check flow cytometry, BCR ABL and MENDEZ 2 mutation analysis -peripheral blood shows evidence of chronic leukemia -f/u bone marrow bx results 2. Coagulopathy and thigh hematoma secondary to supra-therapeutic INR. Pt has valvular heart disease and afib -agree with holding Coumadin for now given the recent bleed. once her hematoma has stabilized we can consider restarting Coumadin at that time Problems: Consultation Date/Type/Reason Admit Date/Time Jul 13, 2016 at 22:10 Initial Consult Date 07/16/16 Type of Consultation: Hematology Reason for Consultation leukocytosis Referring Provider: ROSANA HAWKINS MD 24 HR Interval Summary Free Text/Dictation patient had bone marrow bx done this morning. family meeting was held with brothers Clifford and Reese who understand patient likely has a chronic leukemia that can be treated as an out patient and is an indolent disease. Exam/Review of Systems Vital Signs Vitals Vital Signs Date Time Temp Pulse Resp B/P Pulse Ox O2 Delivery O2 Flow Rate FiO2 07/17/16 13:30 97.8 79 18 123/77 98 Nasal Cannula 07/13/16 22:30 2.0 Intake and Output 07/16/16 07/16/16 07/17/16 14:59 22:59 06:59 Intake Total 700 ml 200 ml Balance 700 ml 200 ml Exam Constitutional: alert, oriented Psych: no complaints Head: atraumatic, normocephalic Eyes: nl conjunctiva ENMT: nl external ears & nose Neck: non-tender, supple Respiratory: clear to auscultation, normal air movement Cardiovascular: nl pulses, regular rate and rhythm Gastrointestinal: soft Musculoskeletal: nl extremities to inspection, nl gait and stance Results Result Diagram: 07/17/16 0633 07/17/16 0633 Results 24 hrs Laboratory Tests Test 07/17/16 06:33 White Blood Count 32.6 H Red Blood Count 3.82 L Hemoglobin 10.7 L Hematocrit 35.4 L Mean Corpuscular Volume 92.7 Mean Corpuscular Hemoglobin 28.0 L Mean Corpuscular Hemoglobin Concent 30.2 L Red Cell Distribution Width 21.6 H Platelet Count 669 H Mean Platelet Volume 11.4 H Neutrophils % 79.0 H Band Neutrophils % 3.0 Lymphocytes % 6.0 L Reactive Lymphocytes % 2.0 Monocytes % 5.0 Eosinophils % Metamyelocytes % 1.0 H Myelocytes % 2.0 H Promyelocytes % 2.0 H Neutrophils # 25.8 H Lymphocytes # 2.0 Monocytes # 1.6 H Eosinophils # Metamyelocytes # 0.3 Myelocytes # 0.7 Promyelocytes # 0.7 Platelet Estimate PLT APPEAR INCREASED Prothrombin Time 16.7 H Prothrombin Time Ratio 1.3 INR International Normalized Ratio 1.34 Sodium Level 140 Potassium Level 3.5 Chloride Level 103 Carbon Dioxide Level 27 Anion Gap 14 Blood Urea Nitrogen 24 H Creatinine 1.04 H Glucose Level 117 Calcium Level 9.7 Magnesium Level 2.1 Medications Medications Current Medications Phenol (Cepastat Lozenge) 1 lozenge Q1H PRN MT COUGH; Start 07/14/16 at 00:30 Diltiazem HCl (Cardizem Cd) 240 mg DAILY PO Last administered on 07/17/16 15: 18; Admin Dose 240 MG; Start 07/14/16 at 09:00 Furosemide (Lasix) 40 mg DAILY@06 PO Last administered on 07/17/16 05:12; Admin Dose 40 MG; Start 07/14/16 at 06:00 Guaifenesin (Robitussin Liquid Cup) 200 mg Q4H PRN PO COUGH; Start 07/14/16 at 00:30 Metoprolol Tartrate (Lopressor) 50 mg BID PO Last administered on 07/17/16 15: 19; Admin Dose 50 MG; Start 07/14/16 at 09:00 Potassium Chloride (Micro-K) 8 meq DAILY PO Last administered on 07/17/16 15: 17; Admin Dose 8 MEQ; Start 07/14/16 at 09:00 Morphine Sulfate (morphine) 2 mg Q4H PRN IM PAIN; Start 07/14/16 at 00:30 Acetaminophen (Tylenol Tab) 650 mg Q6H PRN PO PAIN AND OR ELEVATED TEMP; Start 07/14/16 at 00:30 Ondansetron HCl (Zofran Inj) 4 mg Q6H PRN IV NAUSEA AND/OR VOMITING; Start at 00:30 Famotidine (Pepcid) 20 mg BID PO Last administered on 07/17/16t 15:18; Admin Dose 20 MG; Start 07/14/16 at 21:00 ANTONIA JAUREGUI M.D. Jul 17, 2016 15:40
--- NOTE | 2016-07-17 15:49 | PN ---
Date/Time of Note Date/Time of Note DATE: 07/17/16 TIME: 15:11 Assessment/Plan VTE Prophylaxis VTE Prophylaxis Intervention: other Lines/Catheters IV [facility] Saline Lock Urinary Cath still in place: No Assessment/Plan Assessment/Plan I started seeing this lady on 07/15/2016. Patient has rheumatic valvular disease and atrial fibrillation and was on coumadin. She came in with bilateral lower extremity hematoma from coumadin overdose with INR 9.24. Coumadin has been held from admission and planed to restarted in 1-2 weeks due to the large hematomas. Patient has leukocytosis that could be a combination of reactive from hematomas and possible myeloproliferative disease that she will need bone marrow study. I explained this to the patient and her son in detail and recommended to had work up with zoogler outpatient since her INR was still high and since she still has the hematoma that may give leukocytosis. Patient's son requested to see a zoogler during this admission. I asked Dr. Sally Clemente MD to see the patient. Patient was seen by Dr. Rob on 07/16/2016. I discussed the case with Dr. Rob today on 07/17/2016. Assessment and plan: 1. Bilateral distal thigh hematomas secondary to coumadin, stable 2. Coagulopathy due to coumadin, resolved, coumadin is on hold 3. Rheumatic heart disease with moderate to severe aortic stenosis, moderate to severe mitral stenosis and regurgitation 4. Chronic atrial fibrillation, controlled rate, coumadin on hold 5. Pulmonary hypertension. due to valvular disease 6. Leukocytosis, reactive versus myeloproliferative disease, follow up with hematology 7, Full discussion with the patient and her two sons, along with Dr. Benitez, and I called her foundry molder Dr. Serrano at [phone] Subjective 24 Hr Interval Summary Free Text/Dictation no fever or chills. no shortness of breath Exam/Review of Systems Vital Signs Vitals Vital Signs Date Time Temp Pulse Resp B/P Pulse Ox O2 Delivery O2 Flow Rate FiO2 07/17/16 12:03 81 07/17/16 11:18 07/17/16 08:03 98.6 18 97 07/13/16 22:30 Nasal Cannula 2.0 Intake and Output 07/16/16 07/16/16 07/17/16 15:00 23:00 07:00 Intake Total 700 ml 200 ml Balance 700 ml 200 ml Exam Constitutional: alert, oriented, well developed Psych: nl mood/affect, no complaints Head: atraumatic, normocephalic Eyes: EOMI, nl conjunctiva, nl lids ENMT: nl external ears & nose, nl lips & teeth, nl nasal mucosa & septum Neck: non-tender, supple Respiratory: clear to auscultation, normal air movement, No congested cough, No crackles/rales, No diminished breath sounds, No intercostal retraction, No labored breathing, No other, No respirations, No tactile fremitus, No wheezing Cardiovascular: irregular rhythm, systolic murmur Gastrointestinal: nl liver, spleen, non-tender, soft, No ascites, No bowel sounds, No distended, No firm, No hepatomegaly, No mass , No other, No rebound or guarding, No splenomegaly, No surgical scars, No tender Musculoskeletal: nl extremities to inspection Extremities: normal pulses, other (hematomas on both thigh), No calf tenderness, No clubbing, No palpable cord, No pitting pedal edema Neurological: WATER METER INSTALLER II-XII intact, nl mental status, nl speech, nl strength Lymph: nl lymph nodes Results Result Diagram: 07/17/16 0633 07/17/16 0633 Results 24 hrs Laboratory Tests Test 07/17/16 06:33 White Blood Count 32.6 H Red Blood Count 3.82 L Hemoglobin 10.7 L Hematocrit 35.4 L Mean Corpuscular Volume 92.7 Mean Corpuscular Hemoglobin 28.0 L Mean Corpuscular Hemoglobin Concent 30.2 L Red Cell Distribution Width 21.6 H Platelet Count 669 H Mean Platelet Volume 11.4 H Neutrophils % 79.0 H Band Neutrophils % 3.0 Lymphocytes % 6.0 L Reactive Lymphocytes % 2.0 Monocytes % 5.0 Eosinophils % Metamyelocytes % 1.0 H Myelocytes % 2.0 H Promyelocytes % 2.0 H Neutrophils # 25.8 H Lymphocytes # 2.0 Monocytes # 1.6 H Eosinophils # Metamyelocytes # 0.3 Myelocytes # 0.7 Promyelocytes # 0.7 Platelet Estimate PLT APPEAR INCREASED Prothrombin Time 16.7 H Prothrombin Time Ratio 1.3 INR International Normalized Ratio 1.34 Sodium Level 140 Potassium Level 3.5 Chloride Level 103 Carbon Dioxide Level 27 Anion Gap 14 Blood Urea Nitrogen 24 H Creatinine 1.04 H Glucose Level 117 Calcium Level 9.7 Magnesium Level 2.1 Medications Medications Current Medications Phenol (Cepastat Lozenge) 1 lozenge Q1H PRN MT COUGH; Start 07/14/16 at 00:30 Diltiazem HCl (Cardizem Cd) 240 mg DAILY PO Last administered on 07/16/16 09: 41; Admin Dose 240 MG; Start 07/14/16 at 09:00 Furosemide (Lasix) 40 mg DAILY@06 PO Last administered on 07/17/16 05:12; Admin Dose 40 MG; Start 07/14/16 at 06:00 Guaifenesin (Robitussin Liquid Cup) 200 mg Q4H PRN PO COUGH; Start 07/14/16 at 00:30 Metoprolol Tartrate (Lopressor) 50 mg BID PO Last administered on 07/16/16 20: 45; Admin Dose 50 MG; Start 07/14/16 at 09:00 Potassium Chloride (Micro-K) 8 meq DAILY PO Last administered on 07/16/16 09: 41; Admin Dose 8 MEQ; Start 07/14/16 at 09:00 Morphine Sulfate (morphine) 2 mg Q4H PRN IM PAIN; Start 07/14/16 at 00:30 Acetaminophen (Tylenol Tab) 650 mg Q6H PRN PO PAIN AND OR ELEVATED TEMP; Start 07/14/16 at 00:30 Ondansetron HCl (Zofran Inj) 4 mg Q6H PRN IV NAUSEA AND/OR VOMITING; Start at 00:30 Famotidine (Pepcid) 20 mg BID PO Last administered on 07/16/16 20:44; Admin Dose 20 MG; Start 07/14/16 at 21:00 ROSANA HAWKINS MD Jul 17, 2016 15:24
[2016-07-18] VITALS (12 sets, daily range): BP systolic 107–130; BP diastolic 51–66; PULSE 73–88; RESP 15–18
[2016-07-18] MEDS: FUROSEMIDE 40 MG TAB PO SCH (05:53)
[2016-07-18] MEDS: DILTIAZEM (CD) 240 MG CAP PO SCH (08:45)
[2016-07-18] MEDS: POTASSIUM CHLORIDE (SR) 8 MEQ CAP PO SCH (08:46)
[2016-07-18] MEDS: FAMOTIDINE 20 MG TAB PO SCH ×2 (08:46→20:58)
[2016-07-18] MEDS: METOPROLOL 50 MG TAB PO SCH ×2 (08:46→20:57)
[2016-07-18 11:01] LABS: IRON 51 ug/dl (35-150)
[2016-07-18 11:10] LABS: TOTAL IRON BINDING CAPACITY 274 ug/dl (241-421)
--- NOTE | 2016-07-18 13:10 | CONS ---
Date/Time of Note Date/Time of Note DATE: 07/18/16 TIME: 13:08 Assessment/Plan Assessment/Plan Chief Complaint/Hosp Course 76 yo female with 1. Leukocytosis - given negative blood cultures and stable vital signs patient does not appear to be actively infected. If is possible that she is having a leukemoid reaction secondary to her thigh hematoma. still we need to rule out a myeloproliferative disorder -will check flow cytometry, BCR ABL and MENDEZ 2 mutation analysis -peripheral blood shows evidence of chronic leukemia -f/u bone marrow bx results 2. Coagulopathy and thigh hematoma secondary to supra-therapeutic INR. Pt has valvular heart disease and afib -agree with holding Coumadin for now given the recent bleed. once her hematoma has stabilized we can consider restarting Coumadin at that time 3. Family meeting was held with lili martin on 07/17. they understand their mother likely has chronic leukemia but that we do not have a final diagnosis at this time. we will likely not have a final diagnosis until next week but this result can be followed up as an out patient Problems: Consultation Date/Type/Reason Admit Date/Time Jul 13, 2016 at 22:10 Initial Consult Date 07/16/16 Type of Consultation: Hematology Reason for Consultation leukocytosis Referring Provider: ROSANA HAWKINS MD 24 HR Interval Summary Free Text/Dictation no acute overnight events. Exam/Review of Systems Vital Signs Vitals Vital Signs Date Time Temp Pulse Resp B/P Pulse Ox O2 Delivery O2 Flow Rate FiO2 07/18/16 12:03 73 07/18/16 11:35 97.6 18 120/56 94 07/17/16 13:30 Nasal Cannula 07/17/16 10:30 2 Intake and Output 07/17/16 07/17/16 07/18/16 15:00 23:00 07:00 Intake Total 800 ml 210 ml Balance 800 ml 210 ml Exam Constitutional: alert, oriented Psych: confusion, no complaints Head: atraumatic, normocephalic Eyes: nl conjunctiva ENMT: nl external ears & nose Neck: supple Respiratory: clear to auscultation Cardiovascular: regular rate and rhythm Gastrointestinal: soft Genitourinary - Female: nl adnexae Extremities: other (ecchymosis has improved) Results Result Diagram: 07/17/16 0633 07/17/16 0633 Results 24 hrs Laboratory Tests Test 07/18/16 10:15 Iron Level 51 Total Iron Binding Capacity 274 Percent Iron Saturation 19 L Ferritin 351.0 H Medications Medications Current Medications Phenol (Cepastat Lozenge) 1 lozenge Q1H PRN MT COUGH; Start 07/14/16 at 00:30 Diltiazem HCl (Cardizem Cd) 240 mg DAILY PO Last administered on 07/18/16 08: 45; Admin Dose 240 MG; Start 07/14/16 at 09:00 Furosemide (Lasix) 40 mg DAILY@06 PO Last administered on 07/18/16 05:53; Admin Dose 40 MG; Start 07/14/16 at 06:00 Guaifenesin (Robitussin Liquid Cup) 200 mg Q4H PRN PO COUGH; Start 07/14/16 at 00:30 Metoprolol Tartrate (Lopressor) 50 mg BID PO Last administered on 07/18/16 08: 46; Admin Dose 50 MG; Start 07/14/16 at 09:00 Potassium Chloride (Micro-K) 8 meq DAILY PO Last administered on 07/18/16 08: 46; Admin Dose 8 MEQ; Start 07/14/16 at 09:00 Morphine Sulfate (morphine) 2 mg Q4H PRN IM PAIN; Start 07/14/16 at 00:30 Acetaminophen (Tylenol Tab) 650 mg Q6H PRN PO PAIN AND OR ELEVATED TEMP; Start 07/14/16 at 00:30 Ondansetron HCl (Zofran Inj) 4 mg Q6H PRN IV NAUSEA AND/OR VOMITING; Start at 00:30 Famotidine (Pepcid) 20 mg BID PO Last administered on 07/18/16 08:46; Admin Dose 20 MG; Start 07/14/16 at 21:00 ANTONIA JAUREGUI M.D. Jul 18, 2016 13:10
--- NOTE | 2016-07-18 14:54 | DS ---
Date/Time of Note Date/Time of Note DATE: 07/18/16 TIME: 14:42 Discharge Summary Admission/Discharge Info Admit Date/Time Jul 13, 2016 at 22:10 Discharge Date/Time Final Diagnosis 1. Bilateral distal thigh hematomas secondary to coumadin, stable 2. Coagulopathy due to coumadin, resolved, coumadin is on hold, coumadin will be held for 5 more days and coumadin needs to be restarted to keep INR 2-3 3. Rheumatic heart disease with moderate to severe aortic stenosis, moderate to severe mitral stenosis and regurgitation 4. Chronic atrial fibrillation, controlled rate, coumadin on hold 5. Pulmonary hypertension. due to valvular disease 6. Leukocytosis, reactive versus myeloproliferative disease, follow up with hematology for bone marrow biopsy result Patient Condition: Stable Hospital Course The patient is a 76-year-old female with a history of atrial fibrillation; rheumatic heart disease; moderate to severe aortic stenosis; moderate to severe mitral stenosis and regurgitation; hypertension, who presented to the emergency department complaining of bruising and swelling on both of her thighs. She stated she noticed 2 days ago that the one on the right side is much larger than the bruising on the left thigh. She was recently admitted here to this hospital for shortness of breath, cough, and abdominal pain, was discharged 2 weeks ago. At that time, echocardiogram showed moderate to severe aortic stenosis as well as moderate to severe mitral stenosis and mitral regurgitation , severely enlarged left and right atrium with moderate to severe tricuspid regurgitation. EF was found to be 60%. It was it was felt at that time that her symptoms of shortness of breath was secondary to her cardiac findings as well as probable bronchial pneumonia. She was managed in consultation with cardiology and pulmonary, and was discharged on Lasix, Bactrim, and Zithromax as well as her cardiac medication and her Coumadin as well. The patient complains of generalized weakness over the past 2 days and decreased p.o. intake , and stated that her cough, which occasionally produces white sputum, has persisted since the last discharge. As far as her bruising on her thighs are concerned, the patient denied any trauma and she has been noncompliant with her Coumadin. Laboratory values shows a WBC of 31,000, platelet count 982,000, hematocrit 50, creatinine 1.13, and an INR of 9.2. Ultrasound of the right thigh was done which showed a 4.7 cm complex subcutaneous cystic structure with layering debris in the region of pain and swelling on the right thigh, most compatible with subcutaneous hematoma. Chest x-ray shows heart size is increased since the chest x-ray about 3 weeks ago, perhaps representing a manifestation of pericardial effusion. Also noted was a new moderate failure with bilateral pleural effusion, left greater than right. For lower extremity hematomas that is considered coumadin related coagulopathy related. Coumadin is held. LAst INR is 1. Leukocytosis - given negative blood cultures and stable vital signs patient does not appear to be actively infected. If is possible that she is having a leukemoid reaction secondary to her thigh hematoma. still we need to rule out a myeloproliferative disorder -will check flow cytometry, BCR ABL and MENDEZ 2 mutation analysis -peripheral blood shows evidence of chronic leukemia -f/u bone marrow bx results 2. Coagulopathy and thigh hematoma secondary to supra-therapeutic INR. Pt has valvular heart disease and afib -agree with holding Coumadin for now given the recent bleed. once her hematoma has stabilized we can consider restarting Coumadin at that time 3. Family meeting was held with lili sons on 07/17. they understand their mother likely has chronic leukemia but that we do not have a final diagnosis at this time. we will likely not have a final diagnosis until next week but this result can be followed up as an out patient I started seeing this lady on 07/15/2016. Patient has rheumatic valvular disease and atrial fibrillation and was on coumadin. She came in with bilateral lower extremity hematoma from coumadin overdose with INR 9.24. Coumadin has been held from admission and planed to restarted in 1-2 weeks due to the large hematomas. Patient has leukocytosis that could be a combination of reactive from hematomas and possible myeloproliferative disease that she will need bone marrow study. I explained this to the patient and her son in detail and recommended to had work up with instructor bus trolley and taxi outpatient since her INR was still high and since she still has the hematoma that may give leukocytosis. Patient's son requested to see a instructor bus trolley and taxi during this admission. I asked Dr. Sally Clemente MD to see the patient. Patient was seen by Dr. Rob on 07/16/2016. I discussed the case with Dr. Rob today on 07/17/2016.7, Full discussion with the patient and her two sons, along with Dr. Benitez, and I called her wheat washer Dr. Serrano at , gave updates and discussed about plans. Home Meds Active Scripts Furosemide* (Furosemide*) 40 Mg Tablet, 40 MG PO DAILY for 30 Days, #30 TAB 2 Refills Prov:MARRY MOREAUP S. 06/27/16 Metoprolol Tartrate* (Lopressor*) 50 Mg Tab, 50 MG PO BID for 30 Days, #60 TAB 2 Refills Prov:JABIER MOREAU S. 06/27/16 Reported Medications Nebivolol Hcl* (Bystolic*) 10 Mg Tablet, 10 MG PO DAILY, #30 TAB 06/23/16 Diltiazem Hcl* (Diltiazem XT) 240 Mg Capsule.er, 240 MG PO DAILY, #30 CAP 06/23/16 Potassium Chloride* (Potassium Chloride*) 8 Meq Capsule.er, 8 MEQ PO DAILY, CAP 06/23/16 Discontinued Reported Medications Warfarin Sodium* (Coumadin*) 2.5 Mg Tablet, 2.5 MG PO DAILY, TAB 06/23/16 Discontinued Scripts Sulfamethoxazole-Trimethoprim* (Bactrim* DS) 800-160 Mg Tab, 1 TAB PO BID for 5 Days, #10 TAB Prov:JABIER MOREAU S. 06/27/16 Benzocaine/Menthol (SORE THROAT LOZENGE) 1 Each Lozenge, 1 LOZENGE MT Q1H Y for COUGH for 30 Days, LOZENGE Prov:JABIER MOREAU S. 06/27/16 Guaifenesin (Guaifenesin) 100 Mg/5 Ml Liquid, 200 MG PO Q4H Y for COUGH, #1 Prov:MARRY MOREAUP S. 06/27/16 Azithromycin* (Azithromycin*) 250 Mg Tablet, 250 MG PO DAILY for 5 Days, TAB Prov:MARRY MOREAUP S. 06/27/16 Follow-up Plan Dr. Benitez in one week cardiology in one week PCP in one week Pending Labs Laboratory Tests Test 07/18/16 10:15 Iron Level 51ug/dl (35-150) Total Iron Binding Capacity 274ug/dl (241-421) Percent Iron Saturation 19% SAT (22-52) Ferritin 351.0ng/ml (11.1-264.0) ROSANA HAWKINS MD Jul 18, 2016 14:53
[2016-07-19] VITALS (11 sets, daily range): BP systolic 103–122; BP diastolic 49–58; PULSE 74–82; RESP 17–20
[2016-07-19] MEDS: FUROSEMIDE 40 MG TAB PO SCH (06:08)
[2016-07-19 07:35] LABS: ADD SCAN DIFF NO
[2016-07-19 07:49] LABS: ABNORMAL IP MESSAGE 1; HEMATOCRIT 38.3 % (37.0-47.0); HEMOGLOBIN 11.7 g/dl (12.0-16.0); MEAN CORPUSCULAR HEMOGLOBIN 28.7 pg (29.0-33.0); MEAN CORPUSCULAR HGB CONC 30.5 g/dl (32.0-37.0); MEAN CORPUSCULAR VOLUME 94.1 fl (82.0-101.0); MEAN PLATELET VOLUME 11.3 fl (7.4-10.4); PLATELET COUNT 665 10^3/UL (140-415); RED BLOOD COUNT 4.07 10^6/ul (4.20-5.40); RED CELL DISTRIBUTION WIDTH 22.7 % (11.5-14.5)
[2016-07-19 08:00] LABS: CALCIUM 9.7 mg/dl (8.4-10.2); CREATININE 1.02 mg/dl (0.44-1.00); POTASSIUM 3.8 mmol/L (3.5-5.1)
[2016-07-19 08:08] LABS: INR 1.29; PROTIME 16.2 Sec (12.2-14.2); PT RATIO 1.3
[2016-07-19] MEDS: POTASSIUM CHLORIDE (SR) 8 MEQ CAP PO SCH (08:35)
[2016-07-19] MEDS: FAMOTIDINE 20 MG TAB PO SCH ×2 (08:35→22:15)
[2016-07-19] MEDS: METOPROLOL 50 MG TAB PO SCH ×2 (08:35→22:16)
[2016-07-19] MEDS: DILTIAZEM (CD) 240 MG CAP PO SCH (08:35)
[2016-07-19 09:53] LABS: EOSINOPHILS # 1.4 10^3/ul (0.0-0.5); LYMPHOCYTES # 2.4 10^3/ul (0.8-2.9); MONOCYTE # 2.4 10^3/ul (0.3-0.9); MYELOCYTES # 1.4; NEUTROPHIL # 25.2 10^3/ul (1.6-7.5); POLYCHROMASIA 1+
[2016-07-19 09:54] LABS: ANISOCYTOSIS 2+; PLATELET ESTIMATE PLT APPEAR INCREASED
--- NOTE | 2016-07-19 10:51 | PN ---
Date/Time of Note Date/Time of Note DATE: 07/19/16 TIME: 10:47 Assessment/Plan VTE Prophylaxis VTE Prophylaxis Intervention: contraindicated Lines/Catheters IV [facility]ter Type (from [facility] Saline Lock Urinary Cath still in place: No Assessment/Plan Problems: (1) Altered mental state Status: Chronic Comment: She is not on any medications that should cause a significant alteration or delirium or other issue. The family is extremely concerned as such I will concur with the request and have neurology see her get a CT scan of the brain. Assuming that this is relatively stable then we can discharge her to the organ care facility in the morning. Qualifiers: Altered mental status type: disorientation Qualified Code: R41.0 - Disorientation (2) CHF (congestive heart failure) Status: Acute Comment: As per cardiology with her significant valvular disease Qualifiers: Congestive heart failure type: unspecified congestive heart failure type Congestive heart failure chronicity: unspecified congestive heart failure chronicity Qualified Code: I50.9 - Congestive heart failure, unspecified congestive heart failure chronicity, unspecified congestive heart failure type Subjective 24 Hr Interval Summary Free Text/Dictation Older female lying in bed reporting I am confused Constitutional: no complaints (Denies fever chills or sweats) Respiratory: no complaints Cardiovascular: no complaints Gastrointestinal: no complaints Exam/Review of Systems Vital Signs Vitals Vital Signs Date Time Temp Pulse Resp B/P Pulse Ox O2 Delivery O2 Flow Rate FiO2 07/19/16 08:10 82 07/19/16 07:49 98.3 18 121/58 95 07/17/16 13:30 Nasal Cannula 07/17/16 10:30 2 Intake and Output 07/18/16 07/18/16 07/19/16 15:00 23:00 07:00 Intake Total 550 ml 200 ml Balance 550 ml 200 ml Exam Patient is oriented to place she knows this July 19 sheath initially said it was 1917 and then corrected to 2017 she knows who the president is Constitutional: alert Neck: non-tender, supple Respiratory: clear to auscultation, normal air movement Cardiovascular: nl pulses, regular rate and rhythm Gastrointestinal: nl liver, spleen, non-tender, soft Results Result Diagram: 07/19/16 0535 07/19/16 0535 Results 24 hrs Laboratory Tests Test 07/19/16 05:35 White Blood Count 34.0 H Red Blood Count 4.07 L Hemoglobin 11.7 L Hematocrit 38.3 Mean Corpuscular Volume 94.1 Mean Corpuscular Hemoglobin 28.7 L Mean Corpuscular Hemoglobin Concent 30.5 L Red Cell Distribution Width 22.7 H Platelet Count 665 H Mean Platelet Volume 11.3 H Neutrophils % 74.0 Band Neutrophils % 2.0 Lymphocytes % 7.0 L Monocytes % 7.0 Eosinophils % 4.0 Metamyelocytes % 2.0 H Myelocytes % 4.0 H Nucleated Red Blood Cells % 1.0 H Neutrophils # 25.2 H Lymphocytes # 2.4 Monocytes # 2.4 H Eosinophils # 1.4 H Metamyelocytes # 0.7 Myelocytes # 1.4 Platelet Estimate PLT APPEAR INCREASED Large Platelets FEW Giant Platelets OCCASIONAL Polychromasia 1+ Anisocytosis 2+ Prothrombin Time 16.2 H Prothrombin Time Ratio 1.3 INR International Normalized Ratio 1.29 Sodium Level 139 Potassium Level 3.8 Chloride Level 105 Carbon Dioxide Level 28 Anion Gap 10 Blood Urea Nitrogen 20 Creatinine 1.02 H Glucose Level 108 Calcium Level 9.7 Medications Medications Current Medications Phenol (Cepastat Lozenge) 1 lozenge Q1H PRN MT COUGH; Start 07/14/16 at 00:30 Diltiazem HCl (Cardizem Cd) 240 mg DAILY PO Last administered on 07/19/16 08: 35; Admin Dose 240 MG; Start 07/14/16 at 09:00 Furosemide (Lasix) 40 mg DAILY@06 PO Last administered on 07/19/16 06:08; Admin Dose 40 MG; Start 07/14/16 at 06:00 Guaifenesin (Robitussin Liquid Cup) 200 mg Q4H PRN PO COUGH; Start 07/14/16 at 00:30 Metoprolol Tartrate (Lopressor) 50 mg BID PO Last administered on 07/19/16 08: 35; Admin Dose 50 MG; Start 07/14/16 at 09:00 Potassium Chloride (Micro-K) 8 meq DAILY PO Last administered on 07/19/16 08: 35; Admin Dose 8 MEQ; Start 07/14/16 at 09:00 Morphine Sulfate (morphine) 2 mg Q4H PRN IM PAIN; Start 07/14/16 at 00:30 Acetaminophen (Tylenol Tab) 650 mg Q6H PRN PO PAIN AND OR ELEVATED TEMP; Start 07/14/16 at 00:30 Ondansetron HCl (Zofran Inj) 4 mg Q6H PRN IV NAUSEA AND/OR VOMITING; Start at 00:30 Famotidine (Pepcid) 20 mg BID PO Last administered on 07/19/16t 08:35; Admin Dose 20 MG; Start 07/14/16 at 21:00 NAVARRO BAUMAN MD Jul 19, 2016 10:51
--- NOTE | 2016-07-19 12:43 | CONS ---
DATE OF ADMISSION: 07/13/2016 DATE OF CONSULTATION: 07/19/2016 TYPE OF CONSULTATION: Neurology. Thank you, Dr. Patrick, for your kind referral for evaluation of encephalopathy. HISTORY OF PRESENT ILLNESS: The patient is a 76-year-old lady with a past medical history of atrial fibrillation, rheumatic heart disease, moderate to severe aortic and mitral stenosis, as well as hypertension, on anticoagulation, who was here a couple of weeks ago, at that time diagnosed with pneumonia. The patient was readmitted because of bruising in the bilateral thighs. On admission her INR was 9.2. She consistently has an elevated WBC count of about 30,000. Oncology was consulted and suspect myeloproliferative disorder. According to the family members present at bedside, the patient does have mild age-related forgetfulness, but since her previous hospitalization she has been more forgetful and confused for the last few weeks, with fluctuation of the severity of confusion. The patient's Coumadin was held. CURRENT MEDICATIONS: 1. Pepcid. 2. Cardizem. 3. . 4. Lasix. 5. Lozenges. 6. Robitussin. 7. Different p.r.n.'s. SOCIAL HISTORY: No alcohol, tobacco, or drug use. ALLERGIES: NONE. FAMILY HISTORY: Noncontributory. REVIEW OF SYSTEMS: All pertinent positives are included in the above history of present illness. PHYSICAL EXAMINATION: VITAL SIGNS: Temperature 98.3, pulse 82, respirations 18, blood pressure 121/ 58. GENERAL: The patient is not in acute distress, lying in bed. HEENT: Normocephalic, atraumatic head. NECK: No carotid bruit, lymphadenopathy or thyromegaly. No meningeal signs. LUNGS: Clear to auscultation bilaterally. CARDIAC: Normal cardiac rhythm and sounds. ABDOMEN: Soft, nontender. EXTREMITIES: Bruised bilateral thighs and right foreleg. NEUROLOGIC EXAMINATION: The patient was not oriented to the place, but when she was told that she is in the hospital she recalled the name of the hospital. She also stated that she remembered June, but could not recall the exact date, so she seemed to be oriented x1 only. She has fluent speech. Cranial nerve examination shows intact visual hartman to visual threat bilaterally. Pupils are reactive from 3 to 2 mm, sluggishly. Extraocular movements are intact, without nystagmus. Symmetrical face. Preserved facial strength and sensation. Tongue is in the midline. Palate elevates symmetrically. Motor strength examination seems to be preserved, somewhat limited secondary to pain in the proximal lower extremities. Deep tendon reflexes are 1+ upper extremities, absent in the lower extremities. Downgoing toes bilaterally. Coordination seemed to be preserved on [id number] testing. No dysmetria or tremor. Sensory examination is grossly intact to light touch and pain. IMPRESSION: Encephalopathy and recent pneumonia. The patient presented with coagulopathy secondary to anticoagulation, with the high INR. She has a history of atrial fibrillation and mitral and aortic stenosis. She also has possible leukemia. According to the family, she may have mild baseline forgetfulness Encephalopathy is likely toxic metabolic and etiology is secondary to ongoing medical problems. To rule out structural abnormalities such as strokes or changes related to leukemia, I would obtain a MRI of the brain with contrast. Continue the current treatment otherwise. Thank you very much for this interesting consultation. Dictated By: DOM LAWRENCE/CONY Conf#: [id number] DID#: [id number]
[2016-07-19] MEDS: ACETAMINOPHEN 325 MG TAB PO PRN (14:19)
--- NOTE | 2016-07-19 17:20 | RADRPT ---
PROCEDURE: MR Brain with and without contrast. CLINICAL INDICATION: Leukemia. Encephalopathy. TECHNIQUE: Multiplanar multisequence MRI of the brain was performed before and after the administrat ion of 10 cc of Magnevist. COMPARISON: There are no similar studies submitted for comparison. FINDINGS: Evaluation is moderately limited due to motion degradation. There is mild to moderate generalized cerebral volume loss. There are few bilateral subcortical T2 hyperintensities suggesting chronic microvascular ischemic c hanges. There is a partially empty sella turcica. There is no abnormal intracranial enhancement. There is no acute infarction. There is no intracranial hemorrhage or extra-axial fluid collection. There is no mass effect. There is no midline shift. The brainstem is within normal limits. The posterior fossa is unremarkable. The normal intracranial, intravascular flow voids are preserved. The visualized paranasal sinuses are well aerated. There is a probable chronic right lamina papyrace a fracture. The orbits are grossly unremarkable. There is no destructive osseous lesion. IMPRESSION: Evaluation is moderately limited due to motion degradation. 1. No acute infarction or intracranial hemorrhage. 2. Mild to moderate generalized cerebral volume loss. 3. Minimal chronic microvascular ischemic changes. 4. No definite abnormal intracranial enhancement however evaluation is limited due to moderate asia on degradation. Further findings as detailed above. RPTAT: AA .Desean Marinelli MD, MD Date Time Electronically viewed and signed by .Desean Marinelli MD, on 07/19/2016 17:20 .F/
[2016-07-20] VITALS (15 sets, daily range): BP systolic 105–142; BP diastolic 49–67; PULSE 93–134; RESP 16–24
[2016-07-20] MEDS: FUROSEMIDE 40 MG TAB PO SCH (05:55)
[2016-07-20 06:08] LABS: AADO2 Arterial 565.4 mmHg (7.0-24.0); Arterial Base Excess 0.5 mmol/L (-3.0-3); Arterial COHb 1.3 % (0.0-3.0); Arterial Fraction of Oxyhgb 95.5 % (93.0-99.0); Arterial HCO3 26.1 mmol/L (22.0-26.0); Arterial MetHb 0.5 % (0.0-1.5); Arterial Total Hemglobin 13.5 g/dl (12.0-18.0); MODE MASK - NRB
[2016-07-20] MEDS: POTASSIUM CHLORIDE (SR) 8 MEQ CAP PO SCH ×2 (08:28→11:42)
[2016-07-20] MEDS: DILTIAZEM (CD) 240 MG CAP PO SCH ×2 (08:28→11:45)
[2016-07-20] MEDS: METOPROLOL 50 MG TAB PO SCH ×2 (08:28→11:45)
[2016-07-20] MEDS: FAMOTIDINE 20 MG TAB PO SCH (08:28)
--- NOTE | 2016-07-20 08:36 | RADRPT ---
PROCEDURE: XR Chest. CLINICAL INDICATION: Shortness of breath. TECHNIQUE: PA and Lateral views of the chest were obtained. COMPARISON: Chest x-ray 06/23/2016 for FINDINGS: The soft tissues are normal. There are degenerative osteophytes in the thoracic spine. The heart i s enlarged. cardiomediastinal silhouette and hilar structures are normal. The pulmonary vasculature is increased. There are vascular calcifications in the left sided aortic arch. There are perihilar and basilar infiltrates consistent with pulmonary edema which has worsened. Bilateral pleural effus ions have increased in size. IMPRESSION: 1. Congestive heart failure with worsening interstitial and alveolar pulmonary edema associated with enlarging pleural effusions. 2. Atherosclerosis of the aortic arch. 3. Spondylosis of the thoracic spine. RPTAT:AAJJ Physician David Date Time Electronically viewed and signed by Benjamín Ugalde Physician on 07/20/2016 08:36 SANDI/
[2016-07-20 08:38] LABS: ADD SCAN DIFF NO
[2016-07-20 08:40] LABS: ABNORMAL IP MESSAGE 1; HEMATOCRIT 39.9 % (37.0-47.0); HEMOGLOBIN 12.2 g/dl (12.0-16.0); MEAN CORPUSCULAR HGB CONC 30.6 g/dl (32.0-37.0); MEAN CORPUSCULAR VOLUME 94.8 fl (82.0-101.0); MEAN PLATELET VOLUME 11.4 fl (7.4-10.4); PLATELET COUNT 719 10^3/UL (140-415); RED BLOOD COUNT 4.21 10^6/ul (4.20-5.40); RED CELL DISTRIBUTION WIDTH 23.2 % (11.5-14.5); WHITE BLOOD COUNT 39.7 10^3/ul (4.8-10.8)
[2016-07-20 08:52] LABS: CHLORIDE 103 mmol/L (97-110); POTASSIUM 3.9 mmol/L (3.5-5.1); SODIUM 143 mmol/L (135-144)
[2016-07-20 08:55] LABS: ANION GAP 17 (8-16); BLOOD UREA NITROGEN 21 mg/dl (7-20); CALCIUM 9.9 mg/dl (8.4-10.2); CARBON DIOXIDE 27 mmol/L (21-31); CREATININE 1.05 mg/dl (0.44-1.00); GLUCOSE 145 mg/dl (70-220)
[2016-07-20 08:57] LABS: D-DIMER 2445.97 ng/ml (<460)
[2016-07-20 09:05] LABS: B-TYPE NATRIURETIC PEPTIDE 7050 PG/ML (0-450)
[2016-07-20 09:14] LABS: TROPONIN-I < 0.012 ng/ml (0.00-0.12)
[2016-07-20] MEDS ORDERED: FUROSEMIDE 40 MG INJ ONE (09:26)
[2016-07-20] MEDS ORDERED: FUROSEMIDE 40 MG INJ IV ONE ×2 (09:30)
[2016-07-20] MEDS ORDERED: DIGOXIN 0.25 MG TAB PO ONE (10:00)
--- NOTE | 2016-07-20 10:00 | PN ---
Date/Time of Note Date/Time of Note DATE: 07/20/16 TIME: 09:56 Assessment/Plan VTE Prophylaxis VTE Prophylaxis Intervention: contraindicated Lines/Catheters IV [facility] Saline Lock Urinary Cath still in place: No Assessment/Plan Problems: (1) Rheumatic heart disease Status: Chronic Comment: As per the notes from the police justice she was scheduled for outpatient possible surgical intervention. However with her tachydysrhythmia this is flaring up issues. Awaiting cardiology revisit (2) Aortic stenosis Status: Chronic Comment: Noted we will try to adjust as best as possible. Qualifiers: Cardiac valve disease etiology: rheumatic Qualified Code: I06.0 - Rheumatic aortic stenosis (3) Mitral stenosis Status: Chronic Comment: Noted. Will diuresis and try and rate control. Cardiology input would be appreciated Qualifiers: Cardiac valve disease etiology: rheumatic Qualified Code: I05.0 - Rheumatic mitral stenosis (4) Altered mental state Status: Chronic Comment: She has a chronic mild encephalopathy. She is actually competent for medical decision-making. As such I have discussed with her CODE STATUS and she wishes to be full code. She specifically wants chest compressions DC countershock and even intubation. Qualifiers: Altered mental status type: disorientation Qualified Code: R41.0 - Disorientation (5) CHF (congestive heart failure) Status: Acute Comment: Diurese the patient Qualifiers: Congestive heart failure type: unspecified congestive heart failure type Congestive heart failure chronicity: unspecified congestive heart failure chronicity Qualified Code: I50.9 - Congestive heart failure, unspecified congestive heart failure chronicity, unspecified congestive heart failure type (6) Coagulopathy Status: Acute Comment: Resolving Subjective 24 Hr Interval Summary Free Text/Dictation Patient overnight had abrupt onset of shortness of breath desaturation. She is now on BiPAP. I have had a discussion with her regarding CODE STATUS Respiratory: shortness of breath Cardiovascular: palpitations Gastrointestinal: no complaints Genitourinary: no complaints Exam/Review of Systems Vital Signs Vitals Vital Signs Date Time Temp Pulse Resp B/P Pulse Ox O2 Delivery O2 Flow Rate FiO2 07/20/16 08:20 114 07/20/16 07:48 97.7 16 139/59 99 07/19/16 20:00 Nasal Cannula 2.0 Intake and Output 07/19/16 07/19/16 07/20/16 15:00 23:00 07:00 Intake Total 400 ml 360 ml Balance 400 ml 360 ml Exam Constitutional: alert, oriented Respiratory: crackles/rales Cardiovascular: irregular rhythm Gastrointestinal: nl liver, spleen, non-tender, soft Extremities: other (Marked ecchymosis of the right lower extremity running downward from above) Results Result Diagram: 07/20/16 0650 07/20/16 0650 Results 24 hrs Laboratory Tests Test 07/20/16 06:00 07/20/16 06:50 Blood Gas Specimen Source Blood arterial Arterial Blood Date Drawn 07/20/2016 6:00:28 AM Arterial Blood pH (Temp corrected) 7.375 Arterial Blood pCO2 (Temp correct) 45.6 H Arterial Blood pO2 (Temp corrected) 102.0 H Arterial Blood HCO3 26.1 H Arterial Blood Base Excess 0.5 Arterial Blood Oxygen Saturation 97.3 Rito Test N/A Arterial Blood Gas Puncture Site LB Arterial Blood Carboxyhemoglobin 1.3 Arterial Blood Methemoglobin 0.5 Blood Gas A-a O2 Differential 565.4 H Oxyhemoglobin Percent 95.5 Total Hemoglobin 13.5 Blood Gas Temperature 37.0 Blood Gas Modality MASK - NRB FiO2 100.0 Blood Gas Notified Whom MM Blood Gas Notified Time 07/20/2016 6:08:20 AM White Blood Count 39.7 H Red Blood Count 4.21 Hemoglobin 12.2 Hematocrit 39.9 Mean Corpuscular Volume 94.8 Mean Corpuscular Hemoglobin 29.0 Mean Corpuscular Hemoglobin Concent 30.6 L Red Cell Distribution Width 23.2 H Platelet Count 719 H Mean Platelet Volume 11.4 H Neutrophils % Eosinophils % Neutrophils # Eosinophils # D-Dimer 2445.97 H D-Dimer Comment Sodium Level 143 Potassium Level 3.9 Chloride Level 103 Carbon Dioxide Level 27 Anion Gap 17 #H Blood Urea Nitrogen 21 H Creatinine 1.05 H Glucose Level 145 Lactic Acid Level 3.1 H Calcium Level 9.9 Troponin I < 0.012 B-Type Natriuretic Peptide 7050 H Medications Medications Current Medications Phenol (Cepastat Lozenge) 1 lozenge Q1H PRN MT COUGH; Start 07/14/16 at 00:30 Diltiazem HCl (Cardizem Cd) 240 mg DAILY PO Last administered on 07/19/16t 08: 35; Admin Dose 240 MG; Start 07/14/16 at 09:00 Furosemide (Lasix) 40 mg DAILY@06 PO Last administered on 07/20/16 05:55; Admin Dose 40 MG; Start 07/14/16 at 06:00 Guaifenesin (Robitussin Liquid Cup) 200 mg Q4H PRN PO COUGH; Start 07/14/16 at 00:30 Metoprolol Tartrate (Lopressor) 50 mg BID PO Last administered on 07/19/16 22: 16; Admin Dose 50 MG; Start 07/14/16 at 09:00 Potassium Chloride (Micro-K) 8 meq DAILY PO Last administered on 07/19/16 08: 35; Admin Dose 8 MEQ; Start 07/14/16 at 09:00 Morphine Sulfate (morphine) 2 mg Q4H PRN IM PAIN; Start 07/14/16 at 00:30 Acetaminophen (Tylenol Tab) 650 mg Q6H PRN PO PAIN AND OR ELEVATED TEMP Last administered on 07/19/16 14:19; Admin Dose 650 MG; Start 07/14/16 at 00:30 Ondansetron HCl (Zofran Inj) 4 mg Q6H PRN IV NAUSEA AND/OR VOMITING; Start at 00:30 Famotidine (Pepcid) 20 mg BID PO Last administered on 07/19/16 22:15; Admin Dose 20 MG; Start 07/14/16 at 21:00 Digoxin (Digoxin) 0.25 mg ONCE ONCE PO ; Start 07/20/16 at 10:00; Stop at 10:01; Status UNV Digoxin (Digoxin) 0.25 mg DAILY@13 PO ; Start 07/20/16 at 13:00; Status UNNAVARRO CORDOVA MD Jul 20, 2016 10:00
--- NOTE | 2016-07-20 10:51 | EN ---
Date/Time of Note Date/Time of Note DATE: 07/20/16 TIME: 08:42 Event Note Medicine Medicine Event Note RAPID RESPONSE TEAM: PLANT MAINTENANCE MECHANIC was called at 0644 for patient being short of breath. It turns ot that and earlier PLANT MAINTENANCE MECHANIC was called at 0558, but I never heard the call. (I was mostly in the ER about that time, then in with another patient on 5th floor, [facility], but I later found out that the staff thought that I had already taken care of the first PLANT MAINTENANCE MECHANIC, so they did not need to mention anything to me.) At that time, patient was very restless and SOB, she was saturating about 88 - 89% and felt a little nauseated. She was switched from a simple mask to a NRB. An ABG was done. Her SBP was 190 ,, but decreased on its own and her HR was up to 130. I arrived in the patient's room at 0634 and found that she was originally admitted with Leukocytosis and a high INR. (I was shown the extensive bruising on her legs.). I was updated with the above history and I reviewed her vitals and evaluated the patient. She appears to be tired. Breathing is labored. She is tachypneic with a RR of 50 to 60. Her current VItals are 138/92 - 120 - 95% on 15L via NRB. Patient is alert, but mostly mouth breathing. SHe wants to say something, but cant get out a word. I told her that she was in Respiratory Distress and may need a tube placed in her throat so she could breathe better. Her earlier AB.37/45/102/26/97% on . After another minute or so, I felt that patient was on the verge of being intubated, physically, while her labs and vitals were surprisingly good. Her RN placed a call to patient's son which lasted approximately 5 minutes. I then asked that an PLANT MAINTENANCE MECHANIC be called, which it was, at 0644. Lab was up and I ordered: CBC, BMP, D-Dimer, BNP, Lactic Acid patient is now more slumped to her left side , still breathing rapidly, but looking very small in the bed. She was still breathing over 50, remained tachy in the 1-teens and 120s. Patient remained alert. I let her know we were taking care of her and that he son had been updated on her condition. When Dr. Garcia, ER Physician, arrived, he asked additional questions about her history, as to what might be causing her SOB. Patient has CHF and bilateral pleural effusions and is du to have a thoracentesis tomorrow. Her last CXR was a week ago. Dr. Garcia pointed out that patients numbers were pretty good, and that she may improve with BiPAP. The plan is to see how she does over the next 30 minutes and then decide if she actually does need to be intubated or maybe we can find a cause for her SOB, treat it and improve her breathing prior to intubation. That definitely sounded like an excellent plan. He went back to the ER and I ordered a portable CXR. A short time later, patient's son, Reese arrived and he went directly in to see his mother. After he came out, I ,along with the Respiratory Therapist, updated him about our current treatment plan. Reese was happy that she did not have to be intubated yet, but was fine with it if she needed it. Patient also agreed to intubation when Dr. Garcia, in my presence, asked her about it. Not long after the BiPAP was placed, her respiratory rate cam down to 36, Pulse 115 and BP 157/77 The CXR was taken about 0715, and it looked like a 50 % left pleural effusion and interstitial fluid on the right with cephalization. I went back to meet with the day crew that was coming on to give my report so that she could be treated and followed through the day. Critical Care TIme: 40 minutes spent evaluating, reviewing and coordinating care with the staff, the ER Physician and patient's son, Reese. BISIKEISHAHetal DOUGHERTY Jul 20, 2016 10:50
--- NOTE | 2016-07-20 11:33 | CONS ---
Date/Time of Note Date/Time of Note DATE: 07/20/16 TIME: 11:27 Assessment/Plan Assessment/Plan Chief Complaint/Hosp Course Acute on chronic respiratory failure: Had been doing well but decompensated overnight. ?Flash pulm edema. Needs diuresis Acute respiratory failure: Secondary to above. On BiPAP Large right thigh hematoma/ecchymosis: In setting of supertherapeutic INR. Pt denies trauma. INR now <2. Coagulopathy: INR high due to coumadin. Now normal Rheumatic heart disease: plan for double valve surgery as outpt (contributing to above) Severe MS Moderate MR Mod-Severe Chronic afib: rates controlled. On coumadin at home -lasix 40mg IV BID -continue diltiazem 240mg and MTP 50mg BID as needs rate control and able to tolerate PO -d/c digoxin as 3rd agent is not necessary at this time Problems: Consultation Date/Type/Reason Admit Date/Time Jul 13, 2016 at 22:10 Initial Consult Date 07/14/16 Type of Consultation: Cardiology Referring Provider: ROSANA HAWKINS MD 24 HR Interval Summary Free Text/Dictation Pt was to be discharged yesterday but was altered so had a neuro eval including MRI which was unremarkable. Overnight the pt had decompensation with deteriorating respiratory status for which rapid response was called and she was placed on BiPAP. She was also noted to have afib with RVR. She is now relatively comfortable but still has SOB. She is alert and able to take meds ( PO metoprolol and diltiazem were held in am). Exam/Review of Systems Vital Signs Vitals Vital Signs Date Time Temp Pulse Resp B/P Pulse Ox O2 Delivery O2 Flow Rate FiO2 07/20/16 08:20 114 07/20/16 07:48 97.7 16 139/59 99 07/19/16 20:00 Nasal Cannula 2.0 Intake and Output 07/19/16 07/19/16 07/20/16 15:00 23:00 07:00 Intake Total 400 ml 360 ml Balance 400 ml 360 ml Exam Constitutional: alert Head: atraumatic, normocephalic ENMT: other (BiPAP) Neck: jvd (8cm) Respiratory: crackles/rales, No clear to auscultation Cardiovascular: No edema, No regular rate and rhythm (IRIR, tachy) Gastrointestinal: non-tender, soft Extremities: other (right leg extensive hematoma/ecchymosis ) Results Result Diagram: 07/20/16 0650 07/20/16 0650 Results 24 hrs Laboratory Tests Test 07/20/16 06:00 07/20/16 06:50 Blood Gas Specimen Source Blood arterial Arterial Blood Date Drawn 07/20/2016 6:00:28 AM Arterial Blood pH (Temp corrected) 7.375 Arterial Blood pCO2 (Temp correct) 45.6 H Arterial Blood pO2 (Temp corrected) 102.0 H Arterial Blood HCO3 26.1 H Arterial Blood Base Excess 0.5 Arterial Blood Oxygen Saturation 97.3 Rito Test N/A Arterial Blood Gas Puncture Site LB Arterial Blood Carboxyhemoglobin 1.3 Arterial Blood Methemoglobin 0.5 Blood Gas A-a O2 Differential 565.4 H Oxyhemoglobin Percent 95.5 Total Hemoglobin 13.5 Blood Gas Temperature 37.0 Blood Gas Modality MASK - NRB FiO2 100.0 Blood Gas Notified Whom MM Blood Gas Notified Time 07/20/2016 6:08:20 AM White Blood Count 39.7 H Red Blood Count 4.21 Hemoglobin 12.2 Hematocrit 39.9 Mean Corpuscular Volume 94.8 Mean Corpuscular Hemoglobin 29.0 Mean Corpuscular Hemoglobin Concent 30.6 L Red Cell Distribution Width 23.2 H Platelet Count 719 H Mean Platelet Volume 11.4 H Neutrophils % Eosinophils % Neutrophils # Eosinophils # D-Dimer 2445.97 H D-Dimer Comment Sodium Level 143 Potassium Level 3.9 Chloride Level 103 Carbon Dioxide Level 27 Anion Gap 17 #H Blood Urea Nitrogen 21 H Creatinine 1.05 H Glucose Level 145 Lactic Acid Level 3.1 H Calcium Level 9.9 Troponin I < 0.012 B-Type Natriuretic Peptide 7050 H Medications Medications Current Medications Phenol (Cepastat Lozenge) 1 lozenge Q1H PRN MT COUGH; Start 07/14/16 at 00:30 Diltiazem HCl (Cardizem Cd) 240 mg DAILY PO Last administered on 07/19/16 08: 35; Admin Dose 240 MG; Start 07/14/16 at 09:00 Furosemide (Lasix) 40 mg DAILY@06 PO Last administered on 07/20/16 05:55; Admin Dose 40 MG; Start 07/14/16 at 06:00 Guaifenesin (Robitussin Liquid Cup) 200 mg Q4H PRN PO COUGH; Start 07/14/16 at 00:30 Metoprolol Tartrate (Lopressor) 50 mg BID PO Last administered on 07/19/16 22: 16; Admin Dose 50 MG; Start 07/14/16 at 09:00 Potassium Chloride (Micro-K) 8 meq DAILY PO Last administered on 07/19/16 08: 35; Admin Dose 8 MEQ; Start 07/14/16 at 09:00 Morphine Sulfate (morphine) 2 mg Q4H PRN IM PAIN; Start 07/14/16 at 00:30 Acetaminophen (Tylenol Tab) 650 mg Q6H PRN PO PAIN AND OR ELEVATED TEMP Last administered on 07/19/16 14:19; Admin Dose 650 MG; Start 07/14/16 at 00:30 Ondansetron HCl (Zofran Inj) 4 mg Q6H PRN IV NAUSEA AND/OR VOMITING; Start at 00:30 Famotidine (Pepcid) 20 mg BID PO Last administered on 07/19/16 22:15; Admin Dose 20 MG; Start 07/14/16 at 21:00 Digoxin (Digoxin) 0.25 mg DAILY@13 PO ; Start 07/20/16 at 13:00 GLADIS PIERRE Jul 20, 2016 11:32
[2016-07-20 11:36] LABS: LYMPHOCYTES # 2.4 10^3/ul (0.8-2.9); MONOCYTE # 2.4 10^3/ul (0.3-0.9); MYELOCYTES # 0.8; NEUTROPHIL # 33.3 10^3/ul (1.6-7.5)
[2016-07-20 11:37] LABS: ANISOCYTOSIS MODERATE; SCHISTOCYTES FEW
[2016-07-20 11:38] LABS: OVALOCYTES FEW; PLATELET ESTIMATE PLT APPEAR INCREASED; SPHEROCYTES FEW; STOMATOCYTES FEW; TEAR DROP CELLS FEW
[2016-07-20] MEDS ORDERED: DIGOXIN 0.25 MG TAB PO SCH (13:00)
--- NOTE | 2016-07-20 14:08 | CONS ---
Date/Time of Note Date/Time of Note DATE: 07/20/16 TIME: 14:04 Consult Date/Type/Reason Admit Date/Time Jul 13, 2016 at 22:10 Initial Consult Date 07/16/16 Type of Consultation: neurology Ordering Provider: ROSANA HAWKINS MD Subjective Episode of SOB, tachycardia over night MRI brain no acute abnormalities Objective Vital Signs Date Time Temp Pulse Resp B/P Pulse Ox O2 Delivery O2 Flow Rate FiO2 07/20/16 12:44 97.6 99 20 122/67 97 BIPAP 07/19/16 20:00 2.0 Intake and Output 07/19/16 07/19/16 07/20/16 15:00 23:00 07:00 Intake Total 400 ml 360 ml Balance 400 ml 360 ml Results/Medications Result Diagram: 07/20/16 0650 07/20/16 0650 Results 24 hrs Laboratory Tests Test 07/20/16 06:00 07/20/16 06:50 Blood Gas Specimen Source Blood arterial Arterial Blood Date Drawn 07/20/2016 6:00:28 AM Arterial Blood pH (Temp corrected) 7.375 Arterial Blood pCO2 (Temp correct) 45.6 H Arterial Blood pO2 (Temp corrected) 102.0 H Arterial Blood HCO3 26.1 H Arterial Blood Base Excess 0.5 Arterial Blood Oxygen Saturation 97.3 Rito Test N/A Arterial Blood Gas Puncture Site LB Arterial Blood Carboxyhemoglobin 1.3 Arterial Blood Methemoglobin 0.5 Blood Gas A-a O2 Differential 565.4 H Oxyhemoglobin Percent 95.5 Total Hemoglobin 13.5 Blood Gas Temperature 37.0 Blood Gas Modality MASK - NRB FiO2 100.0 Blood Gas Notified Whom MM Blood Gas Notified Time 07/20/2016 6:08:20 AM White Blood Count 39.7 H Red Blood Count 4.21 Hemoglobin 12.2 Hematocrit 39.9 Mean Corpuscular Volume 94.8 Mean Corpuscular Hemoglobin 29.0 Mean Corpuscular Hemoglobin Concent 30.6 L Red Cell Distribution Width 23.2 H Platelet Count 719 H Mean Platelet Volume 11.4 H Neutrophils % 84.0 H Lymphocytes % 6.0 L Monocytes % 6.0 Eosinophils % Metamyelocytes % 1.0 H Myelocytes % 2.0 H Promyelocytes % 1.0 H Neutrophils # 33.3 H Lymphocytes # 2.4 Monocytes # 2.4 H Eosinophils # Metamyelocytes # 0.4 Myelocytes # 0.8 Promyelocytes # 0.4 Platelet Estimate PLT APPEAR INCREASED Large Platelets MANY Giant Platelets FEW Anisocytosis MODERATE Spherocytes FEW Tear Drop Cells FEW Ovalocytes FEW Stomatocytes FEW Schistocytes FEW D-Dimer 2445.97 H D-Dimer Comment Sodium Level 143 Potassium Level 3.9 Chloride Level 103 Carbon Dioxide Level 27 Anion Gap 17 #H Blood Urea Nitrogen 21 H Creatinine 1.05 H Glucose Level 145 Lactic Acid Level 3.1 H Calcium Level 9.9 Troponin I < 0.012 B-Type Natriuretic Peptide 7050 H Medications Current Medications Phenol (Cepastat Lozenge) 1 lozenge Q1H PRN MT COUGH; Start 07/14/16 at 00:30 Diltiazem HCl (Cardizem Cd) 240 mg DAILY PO Last administered on 07/20/16 11: 45; Admin Dose 240 MG; Start 07/14/16 at 09:00 Guaifenesin (Robitussin Liquid Cup) 200 mg Q4H PRN PO COUGH; Start 07/14/16 at 00:30 Metoprolol Tartrate (Lopressor) 50 mg BID PO Last administered on 07/20/16 11: 45; Admin Dose 50 MG; Start 07/14/16 at 09:00 Potassium Chloride (Micro-K) 8 meq DAILY PO Last administered on 07/20/16 11: 42; Admin Dose 8 MEQ; Start 07/14/16 at 09:00 Morphine Sulfate (morphine) 2 mg Q4H PRN IM PAIN; Start 07/14/16 at 00:30 Acetaminophen (Tylenol Tab) 650 mg Q6H PRN PO PAIN AND OR ELEVATED TEMP Last administered on 07/19/16 14:19; Admin Dose 650 MG; Start 07/14/16 at 00:30 Ondansetron HCl (Zofran Inj) 4 mg Q6H PRN IV NAUSEA AND/OR VOMITING; Start at 00:30 Famotidine (Pepcid) 20 mg BID PO Last administered on 07/19/16 22:15; Admin Dose 20 MG; Start 07/14/16 at 21:00 Assessment/Plan Chief Complaint/Hosp Course PHYSICAL EXAMINATION: GENERAL: The patient is not in acute distress, lying in bed, O2 by mask NEUROLOGIC EXAMINATION: The patient awake, oriented x1. Cranial nerve examination shows intact visual hartman to visual threat bilaterally. Pupils are reactive from 3 to 2 mm, sluggishly. Extraocular movements are intact, without nystagmus. Symmetrical face. Preserved facial strength and sensation. Motor strength examination seems to be preserved, somewhat limited secondary to pain in the proximal lower extremities. Deep tendon reflexes are 1+ upper extremities, absent in the lower extremities. Downgoing toes bilaterally. Coordination seemed to be preserved on [id number] testing. No dysmetria or tremor. Sensory examination is grossly intact to light touch. IMPRESSION: Encephalopathy and recent pneumonia. The patient presented with coagulopathy secondary to anticoagulation, with the high INR. She has a history of atrial fibrillation and mitral and aortic stenosis. She also has possible leukemia. Respiratory insufficiency. According to the family, she may have mild baseline forgetfulness Encephalopathy is likely toxic metabolic in etiology is secondary to ongoing medical problems. Continue the current treatment. Problems: DOM GANDHI MD Jul 20, 2016 14:08
--- NOTE | 2016-07-20 14:08 | EN ---
Date/Time of Note Date/Time of Note DATE: 07/20/16 TIME: 13:55 ER Progress Note 07/20/2016 Time: 07:05 Emergency medicine consultation performed outside the emergency department: 76-year-old female with a history of rheumatic heart disease, severe aortic stenosis and mitral regurgitation, atrial fibrillation on Coumadin with recent supra therapeutic INR, hypertension, and pleural effusions with worsening shortness of breath and respiratory distress for possible intubation. Apparently this morning patient developed worsening dyspnea and tachypnea. Evaluated by the hospitalist Dr. Foster who called me to evaluate this patient for intubation. On physical exam she is tachypneic with respiratory rates in the 30s but maintaining O2 saturation greater than 90 on supplemental oxygen by nonrebreathing facemask. BP 115/62 and HR 108. Alert and oriented, ill- appearing in moderate to severe respiratory distress. Neck is supple nontender with no stridor. Breath sounds are markedly diminished bilaterally with occasional expiratory wheezing and crackles throughout. Cardiac exam reveals tachycardia with 4/6 murmur. Abdomen is soft and nontender without rebound or guarding. No peripheral cyanosis or edema. Patient worsening congestive heart failure and likely pleural effusions. Doubt pulmonary embolism as she is already anticoagulated. She is in moderate respiratory distress but alert, oriented and communicative. She states that she has previously been intubated and agrees to intubation if necessary. At this point the patient is appropriate for a trial of noninvasive positive pressure ventilation, preload reduction, diuresis and reevaluation within 30 minutes. If she improves endotracheal intubation and mechanical ventilation may be avoided. Dr Foster is at the bedside and has assumed care. CARLOTTA PALOMINO MD Jul 20, 2016 14:07
--- NOTE | 2016-07-20 14:52 | PSY ---
Date/Time of Note Date/Time of Note DATE: 07/20/16 TIME: 17:51 Psychiatric Subjective Eval Consent Pt consented to telemedicine: Yes Subjective Evaluation Patient location: inpatient Chief Complaint: mult c/o--increased bruising on warfarin, increased altered loc History of present illness The patient is a 76 yo female with CHF, encephalopthy related to chronic disease. MD was consulted for capacity eval. Medical history Problems Medical Problems: (1) Abnormal LFTs Status: Acute (2) Altered mental state Status: Chronic (3) Aortic stenosis Status: Chronic (4) CHF (congestive heart failure) Status: Acute (5) CHF (congestive heart failure) Status: Acute (6) Cholelithiasis Status: Acute (7) Coagulopathy Status: Acute (8) Leukocytosis Status: Acute (9) Leukocytosis Status: Acute (10) Mitral stenosis Status: Chronic (11) Rheumatic heart disease Status: Chronic (12) Severe sepsis Status: Acute Allergies: Coded Allergies: No Known Allergy (Unverified , 06/27/16) Psychiatric Objective Eval Mental Status Examination: Laboratory Results Laboratory Tests Test 07/19/16 05:35 07/20/16 06:00 07/20/16 06:50 White Blood Count 34.010^3/ul 39.710^3/ul Red Blood Count 4.0710^6/ul 4.2110^6/ul Hemoglobin 11.7g/dl 12.2g/dl Hematocrit 38.3% 39.9% Mean Corpuscular Volume 94.1fl 94.8fl Mean Corpuscular Hemoglobin 28.7pg 29.0pg Mean Corpuscular Hemoglobin Concent 30.5g/dl 30.6g/dl Red Cell Distribution Width 22.7% 23.2% Platelet Count 47201^3/UL 77335^3/UL Mean Platelet Volume 11.3fl 11.4fl Neutrophils % 74.0% 84.0% Band Neutrophils % 2.0% Lymphocytes % 7.0% 6.0% Monocytes % 7.0% 6.0% Eosinophils % 4.0% % Metamyelocytes % 2.0% 1.0% Myelocytes % 4.0% 2.0% Nucleated Red Blood Cells % 1.0/100WBC Neutrophils # 25.210^3/ul 33.310^3/ul Lymphocytes # 2.410^3/ul 2.410^3/ul Monocytes # 2.410^3/ul 2.410^3/ul Eosinophils # 1.410^3/ul 10^3/ul Metamyelocytes # 0.7 0.4 Myelocytes # 1.4 0.8 Platelet Estimate PLT APPEAR INCREASED PLT APPEAR INCREASED Large Platelets FEW MANY Giant Platelets OCCASIONAL FEW Polychromasia 1+ Anisocytosis 2+ MODERATE Prothrombin Time 16.2Sec Prothrombin Time Ratio 1.3 INR International Normalized Ratio 1.29 Sodium Level 139mmol/L 143mmol/L Potassium Level 3.8mmol/L 3.9mmol/L Chloride Level 105mmol/L 103mmol/L Carbon Dioxide Level 28mmol/L 27mmol/L Anion Gap 10 17 Blood Urea Nitrogen 20mg/dl 21mg/dl Creatinine 1.02mg/dl 1.05mg/dl Glucose Level 108mg/dl 145mg/dl Calcium Level 9.7mg/dl 9.9mg/dl Blood Gas Specimen Source Blood arterial Arterial Blood Date Drawn 07/20/2016 6:00:28 AM Arterial Blood pH (Temp corrected) 7.375 Arterial Blood pCO2 (Temp correct) 45.6mmhg Arterial Blood pO2 (Temp corrected) 102.0mmHG Arterial Blood HCO3 26.1mmol/L Arterial Blood Base Excess 0.5mmol/L Arterial Blood Oxygen Saturation 97.3mmHG Rito Test N/A Arterial Blood Gas Puncture Site LB Arterial Blood Carboxyhemoglobin 1.3% Arterial Blood Methemoglobin 0.5% Blood Gas A-a O2 Differential 565.4mmHg Oxyhemoglobin Percent 95.5% Total Hemoglobin 13.5g/dl Blood Gas Temperature 37.0C Blood Gas Modality MASK - NRB FiO2 100.0% Blood Gas Notified Whom MM Blood Gas Notified Time 07/20/2016 6:08:20 AM Promyelocytes % 1.0% Promyelocytes # 0.4 Spherocytes FEW Tear Drop Cells FEW Ovalocytes FEW Stomatocytes FEW Schistocytes FEW D-Dimer 2445.97ng/ml D-Dimer Comment Lactic Acid Level 3.1mmol/L Troponin I < 0.012ng/ml B-Type Natriuretic Peptide 7050PG/ML JEREMIAH DE LUNA Jul 20, 2016 14:52
--- NOTE | 2016-07-20 15:02 | PSY ---
Date/Time of Note Date/Time of Note DATE: 07/20/16 TIME: 18:02 Psychiatric Subjective Eval Subjective Evaluation Patient location: inpatient Chief Complaint: mult c/o--increased bruising on warfarin, increased altered loc History of present illness The patient is a 76 yo female with CHF, cardiomyopathy, encephalopthy related to chronic disease. MD was consulted for capacity eval.Pt is a limited historian , so limited hx was obtained. However, MD did go over DNR criteria and decision and pt met capacity for deciding on DNR. She was able to communicate a choice, understand relevant info, appreciate situation and it consequences, and explain her reason for the treatment option. She chose against DNR. That is , she would want to be resuscitated. The reason being that she admittedly thinks more about the present rather than the future and still wants to live, per her. However, pt's ability to maintain capacity or even engage in a discussion is limited, thereby limiting her capacity to waxing and waning. During second half of interview she was unable to even engage or answer any questions of MD, and discussion was about the date. She started well with month but could nto report year (and despite MD constantly asking for the year about 10x over 5 minutes, she would only report the month). This demonstrates the patient's waxing and waning capacity as her medical condition (low oxygen, discomfort) clealry make it hard for her to engage in interview much of th etime. On exam, appears stated age, appears moribund and uncomfortable, constantly fidgeting adn removing medical devices, dysphoric and restricted affect, difficulty engaging in interview, only oriented to month not day or year, is oriented to self Assessment: pt has low level delirium, also simply very medically ill. Her capacity and mental status wax and wane minute to minute. Capacity will need to be assessed on a decision by decision basis. Avoid benzodiazepines. Right now, given her severe medical condition and fragile state, would not recommend a psych med. However, should she become agitated, low dose seroquel 12.5mg would be a good start. Medical history Problems Medical Problems: (1) Abnormal LFTs Status: Acute (2) Altered mental state Status: Chronic (3) Aortic stenosis Status: Chronic (4) CHF (congestive heart failure) Status: Acute (5) CHF (congestive heart failure) Status: Acute (6) Cholelithiasis Status: Acute (7) Coagulopathy Status: Acute (8) Leukocytosis Status: Acute (9) Leukocytosis Status: Acute (10) Mitral stenosis Status: Chronic (11) Rheumatic heart disease Status: Chronic (12) Severe sepsis Status: Acute Allergies: Coded Allergies: No Known Allergy (Unverified , 06/27/16) Psychiatric Objective Eval Mental Status Examination: Laboratory Results Laboratory Tests Test 07/19/16 05:35 07/20/16 06:00 07/20/16 06:50 White Blood Count 34.010^3/ul 39.710^3/ul Red Blood Count 4.0710^6/ul 4.2110^6/ul Hemoglobin 11.7g/dl 12.2g/dl Hematocrit 38.3% 39.9% Mean Corpuscular Volume 94.1fl 94.8fl Mean Corpuscular Hemoglobin 28.7pg 29.0pg Mean Corpuscular Hemoglobin Concent 30.5g/dl 30.6g/dl Red Cell Distribution Width 22.7% 23.2% Platelet Count 65815^3/UL 79468^3/UL Mean Platelet Volume 11.3fl 11.4fl Neutrophils % 74.0% 84.0% Band Neutrophils % 2.0% Lymphocytes % 7.0% 6.0% Monocytes % 7.0% 6.0% Eosinophils % 4.0% % Metamyelocytes % 2.0% 1.0% Myelocytes % 4.0% 2.0% Nucleated Red Blood Cells % 1.0/100WBC Neutrophils # 25.210^3/ul 33.310^3/ul Lymphocytes # 2.410^3/ul 2.410^3/ul Monocytes # 2.410^3/ul 2.410^3/ul Eosinophils # 1.410^3/ul 10^3/ul Metamyelocytes # 0.7 0.4 Myelocytes # 1.4 0.8 Platelet Estimate PLT APPEAR INCREASED PLT APPEAR INCREASED Large Platelets FEW MANY Giant Platelets OCCASIONAL FEW Polychromasia 1+ Anisocytosis 2+ MODERATE Prothrombin Time 16.2Sec Prothrombin Time Ratio 1.3 INR International Normalized Ratio 1.29 Sodium Level 139mmol/L 143mmol/L Potassium Level 3.8mmol/L 3.9mmol/L Chloride Level 105mmol/L 103mmol/L Carbon Dioxide Level 28mmol/L 27mmol/L Anion Gap 10 17 Blood Urea Nitrogen 20mg/dl 21mg/dl Creatinine 1.02mg/dl 1.05mg/dl Glucose Level 108mg/dl 145mg/dl Calcium Level 9.7mg/dl 9.9mg/dl Blood Gas Specimen Source Blood arterial Arterial Blood Date Drawn 07/20/2016 6:00:28 AM Arterial Blood pH (Temp corrected) 7.375 Arterial Blood pCO2 (Temp correct) 45.6mmhg Arterial Blood pO2 (Temp corrected) 102.0mmHG Arterial Blood HCO3 26.1mmol/L Arterial Blood Base Excess 0.5mmol/L Arterial Blood Oxygen Saturation 97.3mmHG Rito Test N/A Arterial Blood Gas Puncture Site LB Arterial Blood Carboxyhemoglobin 1.3% Arterial Blood Methemoglobin 0.5% Blood Gas A-a O2 Differential 565.4mmHg Oxyhemoglobin Percent 95.5% Total Hemoglobin 13.5g/dl Blood Gas Temperature 37.0C Blood Gas Modality MASK - NRB FiO2 100.0% Blood Gas Notified Whom MM Blood Gas Notified Time 07/20/2016 6:08:20 AM Promyelocytes % 1.0% Promyelocytes # 0.4 Spherocytes FEW Tear Drop Cells FEW Ovalocytes FEW Stomatocytes FEW Schistocytes FEW D-Dimer 2445.97ng/ml D-Dimer Comment Lactic Acid Level 3.1mmol/L Troponin I < 0.012ng/ml B-Type Natriuretic Peptide 7050PG/ML JEREMIAH DE LUNA Jul 20, 2016 15:02
--- NOTE | 2016-07-20 15:07 | PSY ---
Date/Time of Note Date/Time of Note DATE: 07/20/16 TIME: 18:06 Psychiatric Subjective Eval Subjective Evaluation Patient location: inpatient Chief Complaint: mult c/o--increased bruising on warfarin, increased altered loc History of present illness Addendum: Delirium likely related to low O2, CHR, meds, morbidity, and moderate brain volume loss (not acute). Would recommend also ruling out infection (UA, blood cultures). Repeat imaging if there is a garrison e in mental status. Medical history Problems Medical Problems: (1) Abnormal LFTs Status: Acute (2) Altered mental state Status: Chronic (3) Aortic stenosis Status: Chronic (4) CHF (congestive heart failure) Status: Acute (5) CHF (congestive heart failure) Status: Acute (6) Cholelithiasis Status: Acute (7) Coagulopathy Status: Acute (8) Leukocytosis Status: Acute (9) Leukocytosis Status: Acute (10) Mitral stenosis Status: Chronic (11) Rheumatic heart disease Status: Chronic (12) Severe sepsis Status: Acute Allergies: Coded Allergies: No Known Allergy (Unverified , 06/27/16) Psychiatric Objective Eval Mental Status Examination: Laboratory Results Laboratory Tests Test 07/19/16 05:35 07/20/16 06:00 07/20/16 06:50 White Blood Count 34.010^3/ul 39.710^3/ul Red Blood Count 4.0710^6/ul 4.2110^6/ul Hemoglobin 11.7g/dl 12.2g/dl Hematocrit 38.3% 39.9% Mean Corpuscular Volume 94.1fl 94.8fl Mean Corpuscular Hemoglobin 28.7pg 29.0pg Mean Corpuscular Hemoglobin Concent 30.5g/dl 30.6g/dl Red Cell Distribution Width 22.7% 23.2% Platelet Count 66842^3/UL 30714^3/UL Mean Platelet Volume 11.3fl 11.4fl Neutrophils % 74.0% 84.0% Band Neutrophils % 2.0% Lymphocytes % 7.0% 6.0% Monocytes % 7.0% 6.0% Eosinophils % 4.0% % Metamyelocytes % 2.0% 1.0% Myelocytes % 4.0% 2.0% Nucleated Red Blood Cells % 1.0/100WBC Neutrophils # 25.210^3/ul 33.310^3/ul Lymphocytes # 2.410^3/ul 2.410^3/ul Monocytes # 2.410^3/ul 2.410^3/ul Eosinophils # 1.410^3/ul 10^3/ul Metamyelocytes # 0.7 0.4 Myelocytes # 1.4 0.8 Platelet Estimate PLT APPEAR INCREASED PLT APPEAR INCREASED Large Platelets FEW MANY Giant Platelets OCCASIONAL FEW Polychromasia 1+ Anisocytosis 2+ MODERATE Prothrombin Time 16.2Sec Prothrombin Time Ratio 1.3 INR International Normalized Ratio 1.29 Sodium Level 139mmol/L 143mmol/L Potassium Level 3.8mmol/L 3.9mmol/L Chloride Level 105mmol/L 103mmol/L Carbon Dioxide Level 28mmol/L 27mmol/L Anion Gap 10 17 Blood Urea Nitrogen 20mg/dl 21mg/dl Creatinine 1.02mg/dl 1.05mg/dl Glucose Level 108mg/dl 145mg/dl Calcium Level 9.7mg/dl 9.9mg/dl Blood Gas Specimen Source Blood arterial Arterial Blood Date Drawn 07/20/2016 6:00:28 AM Arterial Blood pH (Temp corrected) 7.375 Arterial Blood pCO2 (Temp correct) 45.6mmhg Arterial Blood pO2 (Temp corrected) 102.0mmHG Arterial Blood HCO3 26.1mmol/L Arterial Blood Base Excess 0.5mmol/L Arterial Blood Oxygen Saturation 97.3mmHG Rito Test N/A Arterial Blood Gas Puncture Site LB Arterial Blood Carboxyhemoglobin 1.3% Arterial Blood Methemoglobin 0.5% Blood Gas A-a O2 Differential 565.4mmHg Oxyhemoglobin Percent 95.5% Total Hemoglobin 13.5g/dl Blood Gas Temperature 37.0C Blood Gas Modality MASK - NRB FiO2 100.0% Blood Gas Notified Whom MM Blood Gas Notified Time 07/20/2016 6:08:20 AM Promyelocytes % 1.0% Promyelocytes # 0.4 Spherocytes FEW Tear Drop Cells FEW Ovalocytes FEW Stomatocytes FEW Schistocytes FEW D-Dimer 2445.97ng/ml D-Dimer Comment Lactic Acid Level 3.1mmol/L Troponin I < 0.012ng/ml B-Type Natriuretic Peptide 7050PG/ML JEREMIAH DE LUNA Jul 20, 2016 15:07
[2016-07-20] MEDS: ACETAMINOPHEN 325 MG TAB PO PRN (15:31)
[2016-07-20] MEDS ORDERED: LORAZEPAM 2 MG INJ IV PRN (15:48)
[2016-07-20] MEDS ORDERED: FUROSEMIDE 40 MG INJ IV SCH (18:00)
[2016-07-20] MEDS ORDERED: LORAZEPAM 2 MG INJ IV ONE (19:00)
[2016-07-20] MEDS ORDERED: morphine (DRIP) 100 MG/100 ML 100 ML IV SCH (19:30)
[2016-07-20] MEDS ORDERED: morphine 2 MG INJ IV ONE (19:30)
--- NOTE | 2016-07-20 20:31 | EN ---
Date/Time of Note Date/Time of Note DATE: 07/20/16 TIME: 20:22 Event Note Medicine Medicine Event Note PRONOUNCEMENT: Notified by RN that patient has and needs to be pronounced. On arrival to Room 525, I find patient, who appears to be , lying in bed. Her 2 sons are at the bedside, and a woman whom I did not identify and a younger person sitting in the [place] across from the door. Patient did not rouse to her name and strong sternal rub. I heard no heart beat and felt no radial pulse. I saw no chest motion and heard no airflow in her lungs. Her pupils are fixed and mid-position. Time of ; 2019 Summary to Primary Provider. MONY MATHEWS DO Jul 20, 2016 20:31
[2016-07-21 11:27] LABS: PLATELET COUNT 669 10^3/UL (140-415); WHITE BLOOD COUNT 32.6 10^3/ul (4.8-10.8)
--- NOTE | 2016-07-21 11:39 | RADRPT ---
PROCEDURE: CT GUIDED PERCUTANEOUS BONE MARROW BIOPSY CLINICAL INDICATION: Thrombocytopenia TECHNIQUE: Informed consent was obtained from the patient following careful explanation of the risks and benefi ts of the procedure. The procedure was performed with Versed and Fentanyl administered by the radiol ogy nurse. The patient was placed prone on the CT table. Multiple axial CT images through the abdomen were acqu ired without contrast. The iliac bone was localized. A site in the patient's back was selected and m arked. The area was prepped and draped in the usual sterile fashion. 1% lidocaine was utilized. Und er CT guidance a 11 gauge co-axial core biopsy needle was advanced into the left iliac bone, paralle l to the SI joint.. A bone marrow aspirate was obtained. Subsequently the needle was withdrawn and r eadvanced into the bone and a core bone biopsy was obtained. There were no immediate complications. COMPARISON: Recent CT FINDINGS: As above RPTAT: AA IMPRESSION: Uncomplicated CT-guided bone marrow biopsy and aspiration. Physician Charlie Date Time Electronically viewed and signed by Physician Charlie on 07/21/2016 11:39 /
--- NOTE | 2016-07-21 13:07 | DES ---
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 She stated she noticed 2 days ago that the one on the right side is much larger than the bruising on the left thigh. She was recently admitted here to this hospital for shortness of breath, cough, and abdominal pain, was discharged 2 weeks ago. At that time, echocardiogram showed moderate to severe aortic stenosis as well as moderate to severe mitral stenosis and mitral regurgitation , severely enlarged left and right atrium with moderate to severe tricuspid regurgitation. EF was found to be 60%. It was it was felt at that time that her symptoms of shortness of breath was secondary to her cardiac findings as well as probable bronchial pneumonia. She was managed in consultation with cardiology and pulmonary, and was discharged on Lasix, Bactrim, and Zithromax as well as her cardiac medication and her Coumadin as well. The patient complains of generalized weakness over the past 2 days and decreased p.o. intake , and stated that her cough, which occasionally produces white sputum, has persisted since the last discharge. As far as her bruising on her thighs are concerned, the patient denied any trauma and she has been noncompliant with her Coumadin. As per cardiology 76 yo F with a h/o rheumatic heart disease with severe MS/mod MR, mod-severe , chronic afib, diastolic/valvular heart failure, who presented with right tigh swelling/pain and was found to have a large hematoma with supertherapeutic INR of 9. The pt notes that she has been compliant with her coumadin and she has not taken any extra doses. She also denies trauma to her thigh. Her breathing has been stable since discharge. She denies orthopnea, PND, edema. She does have exertional dyspnea. She uses a walker. Hospital Course PHYSICAL EXAMINATION: GENERAL: The patient is not in acute distress, lying in bed, O2 by mask NEUROLOGIC EXAMINATION: The patient awake, oriented x1. Cranial nerve examination shows intact visual hartman to visual threat bilaterally. Pupils are reactive from 3 to 2 mm, sluggishly. Extraocular movements are intact, without nystagmus. Symmetrical face. Preserved facial strength and sensation. Motor strength examination seems to be preserved, somewhat limited secondary to pain in the proximal lower extremities. Deep tendon reflexes are 1+ upper extremities, absent in the lower extremities. Downgoing toes bilaterally. Coordination seemed to be preserved on [id number] testing. No dysmetria or tremor. Sensory examination is grossly intact to light touch. IMPRESSION: Encephalopathy and recent pneumonia. The patient presented with coagulopathy secondary to anticoagulation, with the high INR. She has a history of atrial fibrillation and mitral and aortic stenosis. She also has possible leukemia. Respiratory insufficiency. According to the family, she may have mild baseline forgetfulness Encephalopathy is likely toxic metabolic in etiology is secondary to ongoing medical problems. Continue the current treatment. The patient deteriorated overnight from the to the . She developed respiratory distress. With rapid atrial fibrillation. She was treated medically and also in consultation with the cord maker Dr. Burroughs. She in consultation with the family who is heavily involved elected to request no further medical therapeutics. She specifically requested comfort care and DNR status after going through careful evaluation including tele-psychiatry to verify competent. She had written her wishes in writing which was shown to the hospitalist on-call Dr. Mejia. Because of this she was placed on DNR status and comfort measures placed on a morphine drip and thereafter. NAVARRO BAUMAN MD Jul 21, 2016 13:06
--- NOTE | 2016-07-22 11:04 | PN ---
Date/Time of Note Date/Time of Note DATE: 07/22/16 TIME: 10:57 Assessment/Plan VTE Prophylaxis VTE Prophylaxis Intervention: other Assessment/Plan Chief Complaint/Hosp Course I was asked to see the pt for cross coverage and pt had written a note that stated that she did not want O2 and did not want CPR or any life saving interventions. The whole family that was present also stated that pt did not want any life saving interventions including O2 and CPR and just wanted to be made comfortable. Pt reportedly was lucid when she made that decision and when she wrote the note. Pt was hence given Ativan and was started on a Morphine gtt. Problems: Subjective 24 Hr Interval Summary Subjective hx not possible: pt non-verbal Exam/Review of Systems Vital Signs Vitals Vital Signs Date Time Temp Pulse Resp B/P Pulse Ox O2 Delivery O2 Flow Rate FiO2 07/20/16 21:35 6.0 07/20/16 17:13 89 07/20/16 16:28 93 07/20/16 15:58 97.4 24 105/59 07/20/16 14:35 Nasal Cannula 07/20/16 10:09 60 Results Result Diagram: 07/20/16 0650 07/20/16 0650 RUMA MOJICA Jul 22, 2016 11:04
== END 2016-07-20 20:19 | disposition expired | DRG 813 ==
LOC: E/R 18:24 → MS4 22:10 → TEL 07-20 12:10
PROVIDERS: ADMIT Internal Medicine; ATTEND Internal Medicine
PROC: 07DR3ZX Extraction of Iliac Bone Marrow, Percutaneous Approach, Diagnostic (ICD-10-PCS; principal; 2016-07-17)
DX: D68.32 Hemorrhagic disorder due to extrinsic circulating anticoagulants (principal); I50.33 Acute on chronic diastolic (congestive) heart failure; G92 Toxic encephalopathy; N17.9 Acute kidney failure, unspecified; J90 Pleural effusion, not elsewhere classified; I42.9 Cardiomyopathy, unspecified; F05 Delirium due to known physiological condition; C91.10 Chronic lymphocytic leukemia of B-cell type not having achieved remission; M79.81 Nontraumatic hematoma of soft tissue; I11.0 Hypertensive heart disease with heart failure; I08.3 Combined rheumatic disorders of mitral, aortic and tricuspid valves; I27.2 Other secondary pulmonary hypertension; I48.2 Chronic atrial fibrillation; T45.515A Adverse effect of anticoagulants, initial encounter; F09 Unspecified mental disorder due to known physiological condition; F03.90 Unspecified dementia, unspecified severity, without behavioral disturbance, psychotic disturbance, mood disturbance, and anxiety; Z66 Do not resuscitate; Z51.5 Encounter for palliative care; I46.9 Cardiac arrest, cause unspecified; R06.00 Dyspnea, unspecified; Z87.01 Personal history of pneumonia (recurrent)
CPT/HCPCS: 36415; 36600; 70553; 71010; 76536; 77012; 80048; 80053; 81001; 81003; 82728; 82803; 83540; 83605; 83735; 83880; 84100; 84484; 85025; 85378; 85610; 85730; 87040; 87086; 88300; 88305; 88313; 94660; 96365; 96372; 96375; J0692; J1940; J1956; J2060; J2250; J2270; J3010; J3370; J7040; J7050